=== PATIENT | female | born 1960 | race Caucasian/White ===

== ENCOUNTER 2022-06-20 10:23 | Inpatient (IN) | payer OTHER, SELFPAY ==
[2022-06-20] VITALS (23 sets, daily range): BP systolic 92–165; BP diastolic 47–77; PULSE 63–130; RESP 9–29; TEMP 36.7–40.1; O2SAT 92–96; BMI 32.3
--- NOTE | 2022-06-20 10:56 | ECG_ITS ---
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 Measurements Intervals [place] Rate: 125 P: 60 [place]: 149 QRS: 39 QRSD: 97 T: 55 QT: 322 QTc: 464 Interpretive Statements SINUS TACHYCARDIA ABNORMAL RHYTHM ECG No previous ECG available for comparison Electronically Signed On 06-20-2022 20:42:10 TRANSIT MECHANIC by Cale Panda M.D. [id number]
--- NOTE | 2022-06-20 10:56 | XRR_ITS ---
PROCEDURE INFORMATION: Exam: XR Chest Exam date and time: 06/20/2022 11:02 AM Age: 61 years old Clinical indication: Cough and dyspnea; Patient HX: AMS n/v; Additional info: Dyspnea/cough TECHNIQUE: Imaging protocol: Radiologic exam of the chest. Views: 1 view. COMPARISON: No relevant prior studies available. FINDINGS: Lungs: There small there is central weighted, indistinct peribronchial markings with peribronchial cuffing both lung shanks possibly secondary to ongoing airway the disease and mild pulmonary congestion. There are some small more consolidated a bone opacities left lower lobe obscured by the left heart border more nonspecific. Pleural spaces: Unremarkable. No pleural effusion. No pneumothorax. Heart/Mediastinum: Cardiac silhouette appears mildly enlarged on this portable chest area are Bones/joints: Mild-moderate multilevel degenerative changes in the throughout the thoracic spine. XR/XR chest 1V portable [id number] IMPRESSION: 1. Mild cardiomegaly a with mildly accentuated peribronchial opacities, nonspecific as discussed above. 2. Ill-defined consolidative densities the obscured by the left heart border which continued follow-up or CT chest recommended for clarification.
--- NOTE | 2022-06-20 11:10 | W.ED.AMS ---
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
[2022-06-20] MEDS: sodium chloride 0.9% 1,000 ML 999 ML IV (11:13)
[2022-06-20 11:26] LABS: ABG PCO2 23.2 mmHg (35-45); ABG PH Result 7.47 (7.35-7.45); Alveolar-Arterial Oxygen Gradi 6.7 mmHg (5-10); Arterial Blood Gas Hematocrit 43.3 % (37-47); Base Excess ABG -4.6 mmol/L (-2.0-2.0); Blood Gas Allen Test Pos; Blood Gas Operator Identificat CAK; Blood Gas Sample Site Radial, right; Blood Gas Sample Type Arterial; Carboxyhemoglobin 1.5 %THgb (0.4-20.1); HGB O2 Sat 93.7 % (95-100); Ionized Calcium Level - ABG 1.1 mmol/L (1.1-1.4); Methemoglobin 0.5 % (0.4-1.5); Oxygen Device ROOM AIR; Oxygen Saturation ABG 95.6; PO2 ABG 68.2 mmHg (80.0-100.0); Potassium Level - ABG 3.1 mmol/L (3.5-5.0); Total Hemoglobin 14.1 g/dL (12-16)
[2022-06-20 11:32] LABS: Hemoglobin 13.8 g/dL (11.5-15.3); Mean Corpuscular HGB Conc 34.5 g/dL (30.0-36.0); Mean Corpuscular Hemoglobin 33.6 pg (28.0-34.0); Mean Corpuscular Volume 97.3 fl (81-99); Mean Platelet Volume 11.8 fL (7.4-10.4); Platelet Count 34 10^3/cmm (130-400); Red Blood Count 4.11 10^6/uL (4.1-5.3); White Blood Count 15.7 10^3/uL (4.0-10.0)
[2022-06-20 11:42] LABS: Alanine Aminotransferase 29 U/L (0-33); Alkaline Phosphatase 69 U/L (35-105); Anion Gap 22.2 (5-19); Aspartate Amino Transferase 71 U/L (0-32); Blood Urea Nitrogen 23 mg/dL (8-23); Calcium 8.8 mg/dL (8.5-10.5); Carbon Dioxide 17 mmol/L (22-29); Chloride 92 mmol/L (98-107); Globulin 3.8 g/dL (1.3-4.6); Glomerular Filtration Rate 50.5 mL/min (90-130); Glucose 348 mg/dL (65-115); Lactic Sepsis W/Reflex 8.7 mmol/L (0.5-2.2); Osmolality Calculated 284 mOsm/kg (285-295); Potassium 3.2 mmol/L (3.5-5.1); Sodium 128 mmol/L (136-145); Total Bilirubin 2.2 mg/dL (0.15-1.2); Total Protein 6.8 g/dL (6.6-8.7)
[2022-06-20 11:59] LABS: Influenza A by IFA negative (Negative); Influenza B by IFA negative (Negative)
[2022-06-20 12:05] LABS: Band Neutrophils Absolute 3.1 10^3/cmm (0.0-1.2); Eosinophils 0 %; Lymphocytes 5 %; Lymphocytes Absolute 0.8 10^3/cmm (1.2-3.4); Monocytes Absolute 0.8 10^3/cmm (0.1-0.6); Segmented Neutrophils 70 %; Total Cells Counted 100 (0-100)
[2022-06-20 12:06] LABS: Absolute Neutrophil 14.1 10^3/cmm (1.4-6.5); Platelet Estimate Decreased (Normal)
--- NOTE | 2022-06-20 12:24 | CT_ITS ---
WS: [id number] CT HEAD TECHNIQUE: Noncontrast CT of the head obtained from the skullbase to the vertex. CLINICAL INFORMATION: AMS, fall COMPARISON: None. DLP: 1108.[address] scans at [facility] use at least one of these dose optimization techniques: automated e xposure control; mA and/or kV adjustment per patient size (includes targeted exams where dose is matc hed to clinical indication); or iterative reconstruction. FINDINGS: No evidence of intracranial hemorrhage or mass effect. Ventricular system and basal cisterns are sotelo nt. Mild small vessel changes with mild parenchymal volume loss. No extra-axial fluid collections. No evidence of mass or mass effect. Normal noble-white differentiation. Paranasal sinuses and mastoid air cells are well aerated. .Normal visualized soft tissues. CT/CT head wo con* [id number] IMPRESSION: 1. No evidence of intracranial hemorrhage or mass effect. 2. No acute intracranial findings.
--- NOTE | 2022-06-20 12:24 | CT_ITS ---
WS: [id number] CT ABDOMEN PELVIS TECHNIQUE: Noncontrast CT of the abdomen and pelvis with coronal and sagittal reformatted images. CLINICAL INFORMATION: Abdominal pain COMPARISON: None. DLP: 1006.[address] scans at [facility] use at least one of these dose optimization techniques: automated e xposure control; mA and/or kV adjustment per patient size (includes targeted exams where dose is matc hed to clinical indication); or iterative reconstruction. FINDINGS: Bibasilar atelectasis. Enlargement of the LEFT hepatic lobe. Splenomegaly. Spleen measures 12.5 CCM. Normal GE junction. Prominent gallstone within the gallbladder. No gallbladder wall thickening or per icholecystic fluid. Noncontrast pancreas is normal. Varices in the upper abdomen and retrocrural spac e. Portosystemic collaterals suspicious for portal venous hypertension. Small LEFT adrenal nodule lik hao adenoma. Adrenal gland is normal. No hydronephrosis in either kidney. No hydronephrosis in either kidney. No o bstructing renal or ureteral calculi. Urine distended bladder. Noncontrast pancreas appears normal. N ormal caliber abdominal aorta. Recanalization of the umbilical vein. Normal sigmoid colon. No evidence of high-grade small or large bowel obstruction. Nonspecific Low-at tenuation ovoid collection in the RIGHT lower quadrant measuring 4.3 x 2.5 cm abutting the descending colon. This may represent mucocele of the appendix versus incidental chronic seroma or lymphangioma. No prior comparisons CT/CT abdomen pelvis wo con [id number] IMPRESSION: 1. Hepatomegaly with splenomegaly. Evidence of portal venous hypertension with varices and portal collaterals. 2. Prominent gallstone in the gallbladder. No gallbladder wall thickening or p ericholecystic fluid. 3. Bibasilar atelectasis. 4. Normal caliber abdominal aorta. 5. Small LEFT adrenal adenoma. 6. Low-attenuation ovoid collection in the RIGHT lower quadrant measuring 4.3 x 2.5 cm abutting the descending colon nonspecific but may represent mucocele o f the appendix versus incidental chronic seroma or lymphangioma. No prior kari risons.
[2022-06-20 13:15] LABS: Reflex Lactate Order REFLEX LACTIC ORDERD
[2022-06-20] MEDS: sodium chlor 0.9% + KCl 20 mEq 20 MEQ/1,000 ML BAG 150 MEQ IV (13:18)
[2022-06-20] MEDS: cefepime 2,000 MG in sodium chloride 0.9% (plus) 50 ML 100 MG IV (13:19)
[2022-06-20 13:28] LABS: Adenovirus Not Detected (NOT DETECT); Chlamydia Pneumoniae Not Detected (NOT DETECT); Coronavirus 229E,HKU1,NL63,OC4 Not Detected (NOT DETECT); Human Metapneumovirus Not Detected (NOT DETECT); Human Rhinovirus/Enterovirus Not Detected (NOT DETECT); Influenza A Not Detected (NOT DETECT); Influenza A H1 Not Detected (NOT DETECT); Influenza A H1-2009 Not Detected (NOT DETECT); Influenza A H3 Not Detected (NOT DETECT); Influenza B Not Detected (NOT DETECT); Mycoplasma Pneumoniae Not Detected (NOT DETECT); Parainfluenza Virus Type 1 Not Detected (NOT DETECT); Parainfluenza Virus Type 2 Not Detected (NOT DETECT); Parainfluenza Virus Type 3 Not Detected (NOT DETECT); Parainfluenza Virus Type 4 Not Detected (NOT DETECT); Respiratory Syncytial Virus A Not Detected (NOT DETECT); Respiratory Syncytial Virus B Not Detected (NOT DETECT); SARS-COV-2 Not Detected (NOT DETECT)
[2022-06-20 13:42] LABS: Add Urine Microscopic? YES; Bilirubin Urine Neg (Negative); Blood Urine 3+ (Negative); Glucose Urine UA 2+ (Normal); Ketones Urine 1+ (Negative); Leukocyte Esterase Urine Negative (Negative); Nitrate Urine Positive (Negative); Protein Urine 1+ (Negative); Urine Appearance Hazy (CLEAR); Urine Color Amber (Yellow); Urobilinogen Urine Neg (Negative); pH Urine 5 (5-7)
[2022-06-20 13:46] LABS: Amorphous Sediment Urine 2+ /hpf; Bacteria Urine 2+ /hpf; Squamous Epithelial Cell Urine 0-4 /hpf (0-5)
[2022-06-20 13:47] LABS: Transitional Epi Cells Urine 0-4 /hpf
[2022-06-20] MEDS: vancomycin 1,000 MG in sodium chloride 0.9% 250 ML 250 MG IV (13:58)
[2022-06-20] MEDS: sodium chloride 0.9% 2,721.54 ML 2721.54 ML IV (14:57)
[2022-06-20] MEDS: acetaminophen 1,000 MG/100 ML PIGGYBACK 400 MG IV (15:57)
[2022-06-20 16:07] LABS: Basophils # 0.1 10^3/uL (0.0-0.1); Basophils % 0.5 %; Lymphocytes # 0.2 10^3/uL (0.8-4.8); Lymphocytes % 1.3 %; Monocytes # 0.3 10^3/uL (0.2-0.9); Monocytes % 2.1 %; Neutrophils # 14.47 10^3/uL (1.8-7.7); Neutrophils % 94.4 %; Nucleated Red Blood Cells % 0 %
[2022-06-20] MEDS: sodium chloride 0.9% 1,000 ML 75 ML IV (16:24)
[2022-06-20] MEDS: enoxaparin 40 mg/0.4 mL Syringe SUBCUT (16:24)
[2022-06-20 16:36] LABS: Glucose Point of Care 282 mg/dL (70-110)
[2022-06-20] MEDS: insulin lispro 100 unit/1 mL SUBCUT ×2 (17:02→20:01)
[2022-06-20 17:22] LABS: Slide Review Slide Review Perform
--- NOTE | 2022-06-20 17:24 | PM.HP ---
Providers/Chief Complaint Admitting Physician: Polly Gómez MD Chief Complaint: AMS, N/V History of Present Illness Silvia Mcneal is a 61 year old female brought to the emergency room by her family today with chief complaints of being unwell over the last 2 days. Specifics are not really available, patient is extremely lethargic therefore only participates in her history intermittently. Patient has not been to a physician in over 5 years. States that she has no known comorbidities that she is aware of. Comes in today complaining of 2 days of generalized weakness lethargy fever and some cough. Cannot tell me if she has had any expectoration or not. No sick contacts apparently at home. Upon arrival here she is noted to be significantly dehydrated. Her lips are dry cracked and it appears that she has been vomiting given that her teeth are slightly eroded. She does endorse vomiting however denies any abdominal pain or diarrhea. Her left index finger is noted to have paronychia which she states is from constantly picking on it. She denies any human or animal bites over this finger. Denies any photophobia or headache. Per she did fall 2 days ago and hit her head. CT of the head performed today does not show any bleeding. She denies any dysuria. She has significantly deranged labs. Lactate is at 8. She has leukocytosis. She is febrile to 104 Fahrenheit. Platelets are 34,000, unknown chronicity. Blood sugar elevated more than 400 upon admission with an anion gap, improved to 280 upon reassessment. She has hyponatremia and hypokalemia. Review of Systems General: Reports: 10 or more systems reviewed and unremarkable except in HPI and below Const: Denies: fever(s), chills or body aches Eyes: Denies: change in vision, blurry vision or photophobia ENMT: Reports: hoarseness; Denies: throat pain, enlarged tonsils, odynophagia or nasal congestion Card: Denies: chest pain, palpitations, irregular heart rhythm, edema, swelling of feet/ankles, lightheadedness, pre-syncope, dyspnea on exertion or orthopnea Resp: Denies: dyspnea, productive cough, non-productive cough, wheezing, stridor, pain on inspiration, change in phlegm color, hemoptysis or chest congestion GI: Denies: abdominal pain, nausea, vomiting, hematemesis, coffee ground emesis, dysphagia, heartburn, diarrhea, constipation, GI cramping, change in stool character, hematochezia or melena : Denies: flank pain, difficulty voiding, dysuria, urinary frequency, urinary urgency, urinary hesitancy or hematuria Musc: Denies: neck pain, back pain, extremity pain, joint swelling, joint warmth or deformity Neuro: Denies: headache(s), numbness in extremities, weakness in extremities, sensory changes, difficulty walking, frequent falls, dizziness, vertigo, behavioral changes, Slurred speech present or seizure-like activity Psych: Denies: anxiety, depression, suicidal ideation or homicidal ideation Endo: Denies: polyuria, polydipsia, tired all the time, cold intolerance or hot flashes Fabrice/Lymph: Denies: easy bruising or easy bleeding Medications/Allergies Home Medications Medication Instructions Recorded Confirmed Last Taken Type No Known Home Medications 06/20/22 06/20/22 Unknown History Allergies Allergy/AdvReac Type Severity Reaction Status Date / Time amoxicillin Allergy ALGY-Difficulty Verified 06/20/22 10:59 Breathing Penicillins Allergy ALGY-Difficulty Verified 06/20/22 10:59 Breathing Vitals/I&O/Wt Last Vital Signs Temp 102.8 F H 06/20/22 17:06 Pulse 115 H 06/20/22 16:56 Resp 20 H 06/20/22 16:56 BP 153/67 06/20/22 16:00 Pulse Ox 93 06/20/22 16:56 O2 Del Method 06/20/22 16:56 06/20/22 06/20/22 06/20/22 06:59 14:59 22:59 Intake Total 1050 / 1050 3071.54 / 4121.54 Balance 1050 / 1050 3071.54 / 4121.54 Weight last 48 hrs Weight 90.718 kg Physical Exam Narrative: General: Oriented x2-3, able to correctly tell me her name age and date of and where she is, however tangential in conversation. Does not always answer questions appropriately. Needs frequent redirection. Significantly dehydrated. Dry chapped lips and dry skin. Poor skin turgor. Winces on examining. HEENT: PERRLA, pupils bilaterally equal and reactive, pallors not present Chest: Normal vesicular breath sounds, no added sounds, equal good air entry bilaterally CVS: S1-S2 regular, no murmurs, no tachycardia, no gallops, no rubs Abdomen: Soft, nontender, no organomegaly, bowel sounds present Neuro: No focal deficits, no facial deformity, AO x2-3, power 5/5 in all limbs Extremities: Cool extremities to touch. Significant paronychia over the distal digit of left hand Urinary Catheter Management: Felix: Cath Placed During This Visit: yes Urinary Catheter Date of Insertion: 06/20/22 Urinary Catheter Time of Insertion: 13:22 Data 06/20/22 10:40 06/20/22 10:40 Micro: Microbiology 06/20/22 11:35 Blood Culture - Preliminary Blood SPECIMEN COLLECTED 06/20/22 11:33 Blood Culture - Preliminary Blood SPECIMEN COLLECTED Other data: Radiology Impressions Chest X-Ray 06/20/22 10:56 IMPRESSION: 1. Mild cardiomegaly a with mildly accentuated peribronchial opacities, nonspecific as discussed above. 2. Ill-defined consolidative densities the obscured by the left heart border which continued follow-up or CT chest recommended for clarification. Abdomen/Pelvis CT 06/20/22 12:24 IMPRESSION: 1. Hepatomegaly with splenomegaly. Evidence of portal venous hypertension with varices and portal collaterals. 2. Prominent gallstone in the gallbladder. No gallbladder wall thickening or pericholecystic fluid. 3. Bibasilar atelectasis. 4. Normal caliber abdominal aorta. 5. Small LEFT adrenal adenoma. 6. Low-attenuation ovoid collection in the RIGHT lower quadrant measuring 4.3 x 2.5 cm abutting the descending colon nonspecific but may represent mucocele of the appendix versus incidental chronic seroma or lymphangioma. No prior comparisons. Head CT 06/20/22 12:24 IMPRESSION: 1. No evidence of intracranial hemorrhage or mass effect. 2. No acute intracranial findings. Laboratory Results WBC 15.7 10^3/uL (4.0-10.0) H 06/20/22 10:40 RBC 4.11 10^6/uL (4.1-5.3) 06/20/22 10:40 Hgb 13.8 g/dL (11.5-15.3) 06/20/22 10:40 Hct 40.0 % (37.0-47.0) 06/20/22 10:40 MCV 97.3 fl (81-99) 06/20/22 10:40 MCH 33.6 pg (28.0-34.0) 06/20/22 10:40 MCHC 34.5 g/dL (30.0-36.0) 06/20/22 10:40 RDW 13.0 % (12.1-15.1) 06/20/22 10:40 Plt Count 34 10^3/cmm (130-400) L 06/20/22 10:40 MPV 11.8 fL (7.4-10.4) H 06/20/22 10:40 Neut % (Auto) 94.4 % 06/20/22 10:40 Lymph % (Auto) 1.3 % 06/20/22 10:40 [place] % (Auto) 2.1 % 06/20/22 10:40 Eos % (Auto) 0.0 % 06/20/22 10:40 Baso % (Auto) 0.5 % 06/20/22 10:40 Neut # (Auto) 14.47 10^3/uL (1.8-7.7) H 06/20/22 10:40 Lymph # (Auto) 0.2 10^3/uL (0.8-4.8) L 06/20/22 10:40 [place] # (Auto) 0.3 10^3/uL (0.2-0.9) 06/20/22 10:40 Eos # (Auto) 0.0 10^3/uL (0.0-0.8) 06/20/22 10:40 Baso # (Auto) 0.1 10^3/uL (0.0-0.1) 06/20/22 10:40 Nucleated RBC % (auto) 0 % 06/20/22 10:40 Total Counted 100 (0-100) 06/20/22 10:40 Atypical Lymphs % 0.0 % (0-5) 06/20/22 10:40 Absolute Neutrophils 14.1 10^3/cmm (1.4-6.5) H 06/20/22 10:40 Segmented Neutrophils 70 % 06/20/22 10:40 Abs Segm Neuts (Man) 11.0 10/cmm (1.6-7.1) H 06/20/22 10:40 Band Neutrophils 20.0 % 06/20/22 10:40 Abs Band Neuts (Man) 3.1 10^3/cmm (0.0-1.2) H 06/20/22 10:40 Absolute Lymphocytes 0.8 10^3/cmm (1.2-3.4) L 06/20/22 10:40 Lymphocytes (Manual) 5 % 06/20/22 10:40 Monocytes (Manual) 5.0 % 06/20/22 10:40 Absolute Monocytes 0.8 10^3/cmm (0.1-0.6) H 06/20/22 10:40 Eosinophils (Manual) 0 % 06/20/22 10:40 Absolute Eosinophils 0.0 10^3/cmm (0.0-0.7) 06/20/22 10:40 Basophils (Manual) 0.0 % 06/20/22 10:40 Absolute Basophils 0.0 10^3/cmm (0.0-0.2) 06/20/22 10:40 Nucleated RBCs # 0.0 /100WBC 06/20/22 10:40 Platelet Estimate Decreased (Normal) L 06/20/22 10:40 Specimen Type Arterial 06/20/22 11:15 Sample Site Radial, right 06/20/22 11:15 ABG pH 7.47 (7.35-7.45) H 06/20/22 11:15 ABG pCO2 23.2 mmHg (35-45) L 06/20/22 11:15 ABG pO2 68.2 mmHg (80.0-100.0) L 06/20/22 11:15 ABG HCO3 17.0 mmol/L (22-26) L 06/20/22 11:15 ABG O2 Saturation 95.6 06/20/22 11:15 ABG Base Excess -4.6 mmol/L (-2.0-2.0) L 06/20/22 11:15 Joshua Test Pos 06/20/22 11:15 A-a O2 Gradient 6.7 mmHg (5-10) 06/20/22 11:15 Hematocrit 43.3 % (37-47) 06/20/22 11:15 Hgb O2 Saturation 93.7 % (95-100) L 06/20/22 11:15 Carboxyhemoglobin 1.5 %THgb (0.4-20.1) 06/20/22 11:15 Methemoglobin 0.5 % (0.4-1.5) 06/20/22 11:15 Total Hemoglobin 14.1 g/dL (12-16) 06/20/22 11:15 Sodium 129.0 mmol/L (131-143) L 06/20/22 11:15 Potassium 3.1 mmol/L (3.5-5.0) L 06/20/22 11:15 Glucose 318.0 mg/dL (70-115) H 06/20/22 11:15 Ionized Calcium 1.1 mmol/L (1.1-1.4) 06/20/22 11:15 O2 Delivery Device Room air 06/20/22 11:15 FiO2 21.0 % 06/20/22 11:15 Manager Cardiac Cath ID Cak 06/20/22 11:15 Sodium 128 mmol/L (136-145) L 06/20/22 10:40 Potassium 3.2 mmol/L (3.5-5.1) L 06/20/22 10:40 Chloride 92 mmol/L (98-107) L 06/20/22 10:40 Carbon Dioxide 17 mmol/L (22-29) L 06/20/22 10:40 Anion Gap 22.2 (5-19) H 06/20/22 10:40 BUN 23 mg/dL (8-23) 06/20/22 10:40 Creatinine 1.1 mg/dL (0.5-0.9) H 06/20/22 10:40 GFR Calculation 50.5 mL/min (90-130) L 06/20/22 10:40 Glucose 348 mg/dL (65-115) H 06/20/22 10:40 POC Glucose 282 mg/dL (70-110) H 06/20/22 16:30 Calculated Osmolality 284 mOsm/kg (285-295) L 06/20/22 10:40 Lactic Acid 8.7 mmol/L (0.5-2.2) H* 06/20/22 10:40 Lactic Acid (Sepsis) 7.0 mmol/L (0.5-2.2) H* 06/20/22 14:37 Calcium 8.8 mg/dL (8.5-10.5) 06/20/22 10:40 Total Bilirubin 2.2 mg/dL (0.15-1.2) H 06/20/22 10:40 AST 71 U/L (0-32) H 06/20/22 10:40 ALT 29 U/L (0-33) 06/20/22 10:40 Alkaline Phosphatase 69 U/L (35-105) 06/20/22 10:40 Total Protein 6.8 g/dL (6.6-8.7) 06/20/22 10:40 Albumin 3.0 g/dL (3.5-5.2) L 06/20/22 10:40 Globulin 3.8 g/dL (1.3-4.6) 06/20/22 10:40 Urine Color Chyna (Yellow) 06/20/22 13:14 Urine Appearance Hazy (CLEAR) A 06/20/22 13:14 Urine pH 5 (5-7) 06/20/22 13:14 Ur Specific [place] 1.020 (1.005-1.030) 06/20/22 13:14 Urine Protein 1+ (Negative) H 06/20/22 13:14 Urine Glucose (UA) 2+ (Normal) H 06/20/22 13:14 Urine Ketones 1+ (Negative) H 06/20/22 13:14 Urine Blood 3+ (Negative) H 06/20/22 13:14 Urine Nitrate Positive (Negative) H 06/20/22 13:14 Urine Bilirubin Neg (Negative) 06/20/22 13:14 Urine Urobilinogen Neg mg/dL (Negative) 06/20/22 13:14 Ur Leukocyte Esterase Negative (Negative) 06/20/22 13:14 Urine RBC 10-15 /hpf (0-2) H 06/20/22 13:14 Urine WBC 10-15 /hpf (0-5) H 06/20/22 13:14 Ur Squamous Epith Cells 0-4 /hpf (0-5) H 06/20/22 13:14 Ur Transition Epith Cell 0-4 /hpf 06/20/22 13:14 Amorphous Sediment 2+ /hpf 06/20/22 13:14 Urine Bacteria 2+ /hpf (NONE) H 06/20/22 13:14 Coronavirus 229E (PCR) Not detected (NOT DETECT) 06/20/22 11:10 Influenza Type A Ag negative (Negative) 06/20/22 11:10 Influenza Type B Ag negative (Negative) 06/20/22 11:10 SARS-CoV-2 (PCR) Not detected (NOT DETECT) 06/20/22 11:10 A&P Assessment and plan (1) Sepsis: Sepsis, as evidenced by leukocytosis, fever, tachycardia, tachypnea, cool clammy extremities, significant lactic acidosis. She has received sepsis bolus in the ER. Continue normal saline at 125 cc an hour Blood cultures drawn prior to starting antibiotics. Empiric antibiotic coverage has been started with cefepime and vancomycin. We will add Levaquin for atypical coverage. Source of sepsis is currently under evaluation. Chest x-ray shows mild cardiomegaly with some peribronchial opacities very nonspecific but could be bronchopneumonia. Plan to obtain CT chest once a little more stable. CT of the abdomen and pelvis shows hepatosplenomegaly with evidence of portal hypertension and paresis with portal collaterals. Unclear as to why patient would have signs of portal hypertension at this time. Will check hepatitis serology and blood alcohol levels. Prominent gallstones are noted without any gallbladder wall thickening or pericholecystic fluid. Castañeda sign negative on exam. Slight induration around the upper pole of the left kidney noted. UA with positive nitrate, negative leuk esterase, 10-15 WBC and 2+ bacteria. Patient does not endorse any urinary symptoms, however she is currently unreliable given her encephalopathy. She could have a UTI potentially. Blood cultures taken and pending. Left hand paronychia noted, however would not expect her to be septic from a localized infection unless she is also concurrently bacteremic. No history of orthopedic or cardiac hardware. Negative COVID PCR, negative flu antigens. (2) Thrombocytopenia: We will check DIC panel Unknown chronicity at this point. Check peripheral smear. check u tox (3) Metabolic encephalopathy: likely 2/2 sepsis, very lethargic, tangential conversation (4) Lactic acidosis: (5) Ketoacidosis: ? diabetic vs starvation ketoacidosi, Ph 7.47, BS down to 280, insulin s/c sliding scale for now, recheck CMP in 6 hrs check hb a1c Plan DVT prophylaxis: Lovenox 40 mg subcutaneously daily Attestations Medical Necessity Statement*: Greater than 2 midnight admission will be needed for above defined care Critical Care Time: The high probability of a clinically significant, sudden or life threatening deterioration of the patient's [ID, renal, neuro, respiratory] system(s) required my full and direct attention, intervention and personal management. The critical care time is as shown. This time is in addition to time spent performing any reported procedures but includes the following: [x] Data and vital sign review and interpretation [x] Patient assessment, examination and intervention [x] Documentation [x] Medication orders and management Critical Care Time (min): 60 Coding Level of Care Code Acute Code for [facility] Fwd Diagnoses Sepsis A41.9 Thrombocytopenia D69.6 Metabolic encephalopathy G93.41 Lactic acidosis E87.20 Ketoacidosis E87.29
[2022-06-20 18:16] LABS: Lactic Sepsis W/Reflex 5.6 mmol/L (0.5-2.2)
[2022-06-20 18:31] LABS: Fibrinogen 264 mg/dL (174-498); Partial Thromboplastin Time 59.5 SECONDS (23.9-36.7)
[2022-06-20 18:47] LABS: D Dimer >= 20.00 ug/mIFEU (0-0.59)
[2022-06-20 18:47] LABS: Amphetamines Screen Urine Negative (Negative); Barbiturates Screen Urine Negative (Negative); Benzodiazepines Screen Urine Negative (Negative); Cocaine Screen Urine Negative (Negative); Opiate Screen Urine Negative (Negative); PCP Screen Urine Negative (Negative); THC Screen Urine Negative (Negative)
[2022-06-20 18:59] LABS: LAB Peripheral Smear Sent for Review
[2022-06-20] MEDS: levofloxacin-dextrose 5 % 750 MG/150 ML PREMIX 100 MG IV (19:00)
[2022-06-20 19:25] LABS: Reflex Lactate Order REFLEX LACTIC ORDERD
[2022-06-20 19:34] LABS: Glucose Point of Care 236 mg/dL (70-110)
[2022-06-20 19:38] LABS: Alcohol Level < 10 mg/dL (0-10); Creatine Phosphokinase 1742 U/L (26-192)
[2022-06-20 20:17] LABS: Hepatitis A Antibody IgM Non-Reactive (Nonreactive); Hepatitis B Core AB, Total Non-Reactive (Nonreactive); Hepatitis B Surface AB 3.5 (11.5-1000); Hepatitis B Surface Antigen Non-Reactive (Nonreactive); Hepatitis C Virus Antibody Non-Reactive (Nonreactive)
[2022-06-20 20:25] LABS: Estmated Average Glucose 232; Hemoglobin A1C 9.7 % (4.0-6.0)
[2022-06-20] MEDS: ipratropium-albuterol 3 mL Neb INHALATION (20:38)
[2022-06-20 23:19] LABS: Alanine Aminotransferase 36 U/L (0-33); Albumin Level 2.7 g/dL (3.5-5.2); Alkaline Phosphatase 47 U/L (35-105); Anion Gap 16.4 (5-19); Aspartate Amino Transferase 103 U/L (0-32); Blood Urea Nitrogen 23 mg/dL (8-23); Calcium 7.4 mg/dL (8.5-10.5); Carbon Dioxide 18 mmol/L (22-29); Chloride 101 mmol/L (98-107); Globulin 3.3 g/dL (1.3-4.6); Glomerular Filtration Rate 85.1 mL/min (90-130); Glucose 233 mg/dL (65-115); Osmolality Calculated 285 mOsm/kg (285-295); Potassium 3.4 mmol/L (3.5-5.1); Sodium 132 mmol/L (136-145); Total Bilirubin 1.7 mg/dL (0.15-1.2)
[2022-06-21] VITALS (56 sets, daily range): BP systolic 100–173; BP diastolic 51–96; PULSE 98–116; RESP 12–34; TEMP 36.6–37.2; O2SAT 89–98
[2022-06-21] MEDS: cefepime 2,000 MG in sodium chloride 0.9% (plus) 50 ML 100 MG IV ×2 (00:24→12:10)
[2022-06-21] MEDS: vancomycin 1,500 MG/300 ML PIGGYBACK 200 MG IV ×2 (01:11→20:52)
[2022-06-21] MEDS: ipratropium-albuterol 3 mL Neb INHALATION ×3 (03:15→13:43)
[2022-06-21 03:53] LABS: Basophils # 0.1 10^3/uL (0.0-0.1); Basophils % 0.7 %; Hematocrit 36.3 % (37.0-47.0); Hemoglobin 12.7 g/dL (11.5-15.3); Lymphocytes # 0.5 10^3/uL (0.8-4.8); Lymphocytes % 4.4 %; Mean Corpuscular Hemoglobin 33.7 pg (28.0-34.0); Mean Corpuscular Volume 96.3 fl (81-99); Mean Platelet Volume 11.9 fL (7.4-10.4); Monocytes # 0.5 10^3/uL (0.2-0.9); Monocytes % 5.2 %; Neutrophils # 8.82 10^3/uL (1.8-7.7); Neutrophils % 86.8 %; Nucleated Red Blood Cells % 0 %; Red Blood Count 3.77 10^6/uL (4.1-5.3); Red Cell Distribution Width 13.3 % (12.1-15.1); White Blood Count 10.2 10^3/uL (4.0-10.0)
[2022-06-21] MEDS: sodium chloride 0.9% 1,000 ML 125 ML IV ×4 (04:08→22:31)
[2022-06-21 04:44] LABS: Alanine Aminotransferase 39 U/L (0-33); Albumin Level 2.6 g/dL (3.5-5.2); Alkaline Phosphatase 43 U/L (35-105); Anion Gap 15.3 (5-19); Aspartate Amino Transferase 112 U/L (0-32); Blood Urea Nitrogen 21 mg/dL (8-23); Calcium 7.3 mg/dL (8.5-10.5); Carbon Dioxide 18 mmol/L (22-29); Chloride 104 mmol/L (98-107); Globulin 3.4 g/dL (1.3-4.6); Glomerular Filtration Rate 101.6 mL/min (90-130); Glucose 196 mg/dL (65-115); Lactate (Lactic Acid level) 3.3 mmol/L (0.5-2.2); Osmolality Calculated 286 mOsm/kg (285-295); Potassium 3.3 mmol/L (3.5-5.1); Sodium 134 mmol/L (136-145); Total Bilirubin 1.6 mg/dL (0.15-1.2)
[2022-06-21 05:03] LABS: Platelet Count 25 10^3/cmm (130-400)
[2022-06-21 07:27] LABS: Glucose Point of Care 162 mg/dL (70-110)
[2022-06-21] MEDS: insulin lispro 100 unit/1 mL SUBCUT ×4 (08:30→20:56)
[2022-06-21] MEDS: pantoprazole DR 40 mg Tablet PO (08:31)
--- NOTE | 2022-06-21 10:28 | PC.NURSE ---
somewhat confused at this time iv site right ac redressed at this time .. middle finger with red area tip swollen and red steak running up arm. Arm very swollen and tender to touch.
--- NOTE | 2022-06-21 11:16 | CT_ITS ---
WS: [id number] CT CHEST TECHNIQUE: Noncontrast CT of the chest with coronal and sagittal reformatted images. CLINICAL INFORMATION: septic COMPARISON: None. DLP: 550.[address] scans at [facility] use at least one of these dose optimization techniques: automated e xposure control; mA and/or kV adjustment per patient size (includes targeted exams where dose is matc hed to clinical indication); or iterative reconstruction. FINDINGS: Cardiomegaly. Tiny pericardial effusion. Normal caliber thoracic aorta. Normal caliber descending tho racic aorta. Large gallstone partially visualized in the gallbladder as described on the CT abdomen p [place]. Small LEFT adrenal adenoma. Hepatomegaly with splenomegaly and evidence of portal venous hyper tension with varices visualized in the upper abdomen. Portosystemic collaterals partially visualized. No mediastinal or hilar lymphadenopathy. Tiny bilateral pleural effusions with patchy infiltrates in the lung bases and lingula. Interstitial edema in the lung bases. Recommend correlation for pneumonia . Upper lobes are well aerated. Mild thoracic curve and kyphosis. CT/CT chest wo con [id number] IMPRESSION: 1. Tiny bilateral pleural effusions with patchy infiltrates in the LEFT greate r than RIGHT lower lobes and lingula with interstitial edema. Recommend correla tion for pneumonia. No focal consolidation. 2. Cardiomegaly. Tiny pericardial effusion. 3. Partially visualized large gallstone in the upper abdomen. 4. Hepatomegaly and splenomegaly. Evidence of portal venous hypertension.
--- NOTE | 2022-06-21 11:17 | CT_ITS ---
WS: [id number] NONCONTRAST CT LEFT HAND TECHNIQUE: Noncontrast CT LEFT with coronal and sagittal reformatted images. CLINICAL INFORMATION: septic COMPARISON: None. DLP: 575.[address] scans at [facility] use at least one of these dose optimization techniques: automated e xposure control; mA and/or kV adjustment per patient size (includes targeted exams where dose is matc hed to clinical indication); or iterative reconstruction. FINDINGS: Diffuse soft tissue edema LEFT hand worse involving the dorsal soft tissues. Edema more prominent ove rlying the 2nd and 3rd metatarsals. No evidence of drainable abscess or fluid collection. Edema along the dorsal extensor retinaculum. No evidence of osteomyelitis. Degenerative narrowing involving the MCP joints and IP joints. No other acute findings. CT/CT hand LT wo con* [id number] IMPRESSION: 1. Soft tissue edema dorsal hand worse overlying the 2nd and 3rd metatarsal. N o evidence of drainable abscess or fluid collection. 2. No evidence of osteomyelitis. 3. No other acute findings.
[2022-06-21 12:04] LABS: Glucose Point of Care 175 mg/dL (70-110)
--- NOTE | 2022-06-21 15:20 | USR_ITS ---
PROCEDURE INFORMATION: Exam: US Duplex Left Upper Extremity Veins, Limited Exam date and time: 06/21/2022 4:06 PM Age: 61 years old Clinical indication: Pain; Arm, upper and arm, lower; Left; Additional info: Evaluate for dvt TECHNIQUE: Imaging protocol: Real-time duplex ultrasound of the Left Upper Extremity with 2-D noble scale, color Doppler flow and spectral waveform analysis with image documentation. Limited exam focused on the left upper extremity veins. COMPARISON: CT hand LT wo con* [id number] 06/21/2022 11:39 AM FINDINGS: Left deep veins: Unremarkable. Axillary and brachial veins are patent throughout without thrombus. Normal Doppler waveforms. Normal compressibility and/or augmentation response. Visualized internal jugular and subclavian veins are patent. Left superficial veins: Unremarkable. Visualized cephalic and basilic veins are patent without thrombus. Soft tissues: Unremarkable. US/[place] [id number] IMPRESSION: No evidence of deep vein thrombosis.
--- NOTE | 2022-06-21 15:40 | PM.PN ---
Subjective Subjective: Patient blood culture returned positive for gram-positive cocci in chains, anticipate Streptococcus versus Enterococcus with that identification. Patient is also in DIC. She looks improving today, more alert, appropriate in conversation, texting on her phone with right hand. Left hand continues to be painful with streaking up the forearm. Medications: Reviewed: Yes Vitals/I&O/Wt Last Vital Signs Temp 98 F 06/21/22 14:00 Pulse 116 H 06/21/22 14:00 Resp 12 06/21/22 14:00 BP 119/64 06/21/22 14:00 Pulse Ox 96 06/21/22 14:00 O2 Del Method 06/21/22 13:44 06/21/22 06/21/22 06/21/22 06:59 14:59 22:59 Intake Total 1296.25 / 6236.54 1150 / 1150 50 / 1200 Output Total 500 / 1000 Balance 796.25 / 5236.54 1150 / 1150 50 / 1200 Weight last 48 hrs Weight 90.718 kg Weight 90.718 kg Physical Exam Narrative: General: No acute distress, AO x3 HEENT: PERRLA, pupils bilaterally equal and reactive, pallors not present Chest: Normal vesicular breath sounds, no added sounds, equal good air entry bilaterally CVS: S1-S2 regular, no murmurs, no tachycardia, no gallops, no rubs Abdomen: Soft, nontender, no organomegaly, bowel sounds present Neuro: No focal deficits, no facial deformity, AO x3, power 5/5 in all limbs Extremities: no edema, clubbing or cyanosis Urinary Catheter Management: Felix: Cath Placed During This Visit: yes Reason for Continuing Indwelling Catheter: Accurate Measurement of Urinary Output in Critically Ill Patients Urinary Catheter Date of Insertion: 06/20/22 Urinary Catheter Time of Insertion: 13:22 Data 06/21/22 03:38 06/21/22 03:38 Micro: Microbiology 06/20/22 11:33 Blood Culture - Preliminary Blood 06/20/22 11:35 Blood Culture - Preliminary Blood A&P Assessment and plan (1) Sepsis: Sepsis, as evidenced by leukocytosis, fever, tachycardia, tachypnea, cool clammy extremities, significant lactic acidosis. She has received sepsis bolus in the ER. Continue normal saline at 125 cc an hour Blood cultures drawn prior to starting antibiotics. Now positive for GPC in chains, pending further identification Empiric antibiotic coverage has been started with cefepime and vancomycin. d/c levaquin Source of sepsis is currently under evaluation. Likely left hand infection with paronychia and ascneding infection. CT hand and CT chest today UE DVT to evalute for septic thrombophlebitis Chest x-ray shows mild cardiomegaly with some peribronchial opacities very nonspecific but could be bronchopneumonia. Plan to obtain CT chest today. CT of the abdomen and pelvis shows hepatosplenomegaly with evidence of portal hypertension and paresis with portal collaterals. Unclear as to why patient would have signs of portal hypertension at this time. No h/o alcohol abuse. hepatitis serology negative for hep b or hep c. Prominent gallstones are noted without any gallbladder wall thickening or pericholecystic fluid. Castañeda sign negative on exam. Slight induration around the upper pole of the left kidney noted. UA with positive nitrate, negative leuk esterase, 10-15 WBC and 2+ bacteria. Patient does not endorse any urinary symptoms. No history of orthopedic or cardiac hardware. Negative COVID PCR, negative flu antigens. (2) Thrombocytopenia: related to DIC from sepsis closely monitor for now no signs of obvious bleeding or clotting but at high risk for both (3) Metabolic encephalopathy: likely 2/2 sepsis, improving today (4) Lactic acidosis: (5) Ketoacidosis: likely 2/2 sepsis, also newly diagnosed DM, Hb a1c 9.7 BS better controlled with insulin (6) DIC (disseminated intravascular coagulation): Plan DVT prophylaxis: SCDs only, not on any heparin products Full code , family updated at beside Attestations Medical Necessity Statement*: severe sepsis needs ICU management with abx, monitor for compartment syndrome of hand, DIC , close monitoring of plt Coding Level of Care Code Acute Code for [facility]g Fwd Diagnoses Sepsis A41.9 Thrombocytopenia D69.6 Metabolic encephalopathy G93.41 Lactic acidosis E87.20 Ketoacidosis E87.29 DIC (disseminated intravascular coagulation) D65
[2022-06-21 17:27] LABS: Glucose Point of Care 188 mg/dL (70-110)
[2022-06-21] MEDS: levofloxacin-dextrose 5 % 750 MG/150 ML PREMIX 100 MG IV (17:41)
--- NOTE | 2022-06-21 20:00 | PC.NURSE ---
Due to pain in the L. hand/arm, pt refused enrollment eligibility representative and palpation of pulses in L. Radial during assessment.
[2022-06-21 20:43] LABS: Glucose Point of Care 173 mg/dL (70-110)
[2022-06-21] MEDS: lanolin oint 7 gm 1 APPLIC TOPICAL (22:30)
--- NOTE | 2022-06-21 23:48 | PC.NURSE ---
Pt appears to be in severe pain, evidence by increased BP, shallow RR, increased anxiety, tears in the eyes, and calling out when the blanket touches her L. hand/arm. Yet, pt reports 3/10 pain. This RN educated pt on pain management and options, including non-pharmacological. Pt expressed concerns about taking pain medication. Dr. Morgan updated. Low dose, low frequency pain meds ordered. At this time pt is agreeable to take low dose, low frequency pain meds.
[2022-06-22] VITALS (52 sets, daily range): BP systolic 117–180; BP diastolic 64–109; PULSE 93–123; RESP 16–34; TEMP 36.8–37.2; O2SAT 83–98
--- NOTE | 2022-06-22 00:19 | PC.NURSE ---
Addendum entered by Flakita Cai RN 06/22/22 00:32: Witnessed waste of Ultram. Original Note: Tylenol and Ultram were scanned and brought to pt. Pt refused medications. Medications were wasted in sharps bin w/ Nichole Cai RN. This RN provided education on pain management and options. BP 180/105. This RN explained that pain control could help BP control and we could possibly avoid BP meds. Dr. Morgan updated on increased BP. Pt is refusing BP meds. Educated pt on the risk of a CVA, heart attack, and if BP is untreated. Pt verbalized understanding and verbalized refusal of blood pressure medication.
[2022-06-22] MEDS: cefepime 2,000 MG in sodium chloride 0.9% (plus) 50 ML 100 MG IV ×2 (01:01→12:27)
[2022-06-22] MEDS: acetaminophen 325 mg Tablet 650 MG PO (01:01)
[2022-06-22] MEDS: ipratropium-albuterol 3 mL Neb INHALATION ×4 (02:03→20:16)
[2022-06-22 04:22] LABS: Basophils # 0.1 10^3/uL (0.0-0.1); Basophils % 0.5 %; Eosinophils % 0.1 %; Hematocrit 35.5 % (37.0-47.0); Hemoglobin 12.3 g/dL (11.5-15.3); Lymphocytes # 0.6 10^3/uL (0.8-4.8); Lymphocytes % 6.4 %; Mean Corpuscular HGB Conc 34.6 g/dL (30.0-36.0); Mean Corpuscular Hemoglobin 33.5 pg (28.0-34.0); Mean Corpuscular Volume 96.7 fl (81-99); Mean Platelet Volume 12.7 fL (7.4-10.4); Monocytes # 0.8 10^3/uL (0.2-0.9); Neutrophils # 8.44 10^3/uL (1.8-7.7); Neutrophils % 84.4 %; Nucleated Red Blood Cells % 0 %; Red Blood Count 3.67 10^6/uL (4.1-5.3); Red Cell Distribution Width 13.2 % (12.1-15.1)
[2022-06-22 04:44] LABS: Blood Urea Nitrogen 17 mg/dL (8-23); Carbon Dioxide 19 mmol/L (22-29); Chloride 106 mmol/L (98-107); Creatinine Clr Calc Pharmacy 134.0523; Glomerular Filtration Rate 125.4 mL/min (90-130); Glucose 197 mg/dL (65-115); Osmolality Calculated 289 mOsm/kg (285-295); Sodium 136 mmol/L (136-145)
[2022-06-22 04:46] LABS: Platelet Count 27 10^3/cmm (130-400); Slide Review Slide Review Perform
[2022-06-22 05:02] LABS: Anion Gap 14.1 (5-19)
[2022-06-22 05:03] LABS: Potassium 3.1 mmol/L (3.5-5.1)
[2022-06-22] MEDS: potassium chloride ER 20 mEq Tablet 40 MEQ PO ×2 (05:58→15:24)
[2022-06-22] MEDS: TRAMadol 50 mg Tablet PO ×2 (07:35→20:35)
--- NOTE | 2022-06-22 07:40 | USCV_ITS ---
Silvia Mcneal Age: 61 Gender: F : 1960 Exam Date: 06/22/2022 11:14 Ordering Phys: Polly Gómez MD Technologist: ALEX Exam Location: [facility] [place] Indication: endocarditis BP: 151 / 78 HR: 96 Rhythm: Sinus Technical Quality: Adequate MEASUREMENTS (Male / Female) Normal Values 2D ECHO LV Diastolic Diameter PLAX 5.1 cm 4.2 - 5.9 / 3.9 - 5.3 cm LV Systolic Diameter PLAX 4.0 cm IVS Diastolic Thickness 0.8 cm 0.6 - 1.0 / 0.6 - 0.9 cm IVS Systolic Thickness 0.9 cm LVPW Diastolic Thickness 0.9 cm 0.6 - 1.0 / 0.6 - 0.9 cm LVPW Systolic Thickness 1.1 cm LVOT Diameter 2.2 cm LV Ejection Fraction 2D Teich 42.5 % LV Ejection Fraction MOD 2C 35.5 % LV Ejection Fraction 2C AL 36.2 % LA Diameter 3.2 cm IVC Diameter 1.3 cm M-MODE Aortic Annulus Diameter 3.1 cm LA Ao Ratio MM 1.1 MV E Point Septal Separation 0.3 cm DOPPLER AV Peak Velocity 147.0 cm/s LVOT Peak Velocity 109.0 cm/s AV Area Cont Eq vti 3.3 cm squared AV Area Cont Eq pk 2.9 cm squared MV Area PHT 4.5 cm squared Mitral E to A Ratio 0.9 MV E' Velocity 61.0 cm/s Mitral E to MV E' Ratio 11.1 Mitral E to LV E' Lateral Ratio 10.5 Mitral E to LV E' Septal Ratio 11.9 TR Peak Velocity 238.7 cm/s TR Peak Gradient 22.8 mmHg TV Peak E Velocity 80.0 cm/s Right Atrial Pressure 6.0 mmHg Pulmonary Artery Systolic Pressu 28.8 mmHg PV Peak Velocity 72.0 cm/s FINDINGS Left Ventricle Normal left ventricular size, systolic function and wall thickness, with no regional wall motion abnormalities. Grade I/IV diastolic dysfunction (abnormal relaxation filling pattern), normal to mildly elevated filling pressures. Left ventricular ejection fraction is estimated at 60 %. Right Ventricle Normal right ventricular size and systolic function. Normal right ventricular systolic pressure. Right Atrium The right atrium is normal in size. Left Atrium The left atrium is normal in size. Mitral Valve Structurally normal mitral valve. Mild mitral valve regurgitation. Aortic Valve Structurally normal aortic valve without significant sclerosis or stenosis. There is no aortic regurgitation. Tricuspid Valve Structurally normal tricuspid valve without significant stenosis or regurgitation. Pulmonary artery systolic pressure is normal. Pulmonic Valve Pulmonic valve not well visualized. Pericardium Normal pericardium without effusion. Aorta Normal ascending aorta dimension. IVC The inferior vena cava appears normal. CONCLUSIONS Normal left ventricular size, systolic function and wall thickness, with no regional wall motion abnormalities. Grade I/IV diastolic dysfunction (abnormal relaxation filling pattern), normal to mildly elevated filling pressures. Left ventricular ejection fraction is estimated at 60 %. Structurally normal mitral valve. Mild mitral valve regurgitation. There are no obvious valvular vegetations. There are no prior echocardiogram studies to compare. Dr. Romeo Snushine MD (Electronically Signed) Final Date: 22 June 2022 12:51 S
[2022-06-22 07:42] LABS: Glucose Point of Care 188 mg/dL (70-110)
[2022-06-22] MEDS: insulin lispro 100 unit/1 mL SUBCUT ×4 (07:42→20:53)
[2022-06-22] MEDS: sodium chloride 0.9% 1,000 ML 125 ML IV ×3 (08:20→23:44)
[2022-06-22] MEDS: pantoprazole DR 40 mg Tablet PO (08:23)
--- NOTE | 2022-06-22 08:27 | PC.NURSE ---
pt anxious and restless painful left hand and arm red streak noted up arm upper and under aspect of arm elevated on pillow to decrease edema ..
--- NOTE | 2022-06-22 10:12 | PC.NURSE ---
resting at this time no distress noted hand elevated on pillow at this time.;
[2022-06-22 12:27] LABS: Glucose Point of Care 172 mg/dL (70-110)
[2022-06-22] MEDS: vancomycin 1,500 MG/300 ML PIGGYBACK 200 MG IV (13:41)
--- NOTE | 2022-06-22 14:33 | PC.NURSE ---
resting at this time left hand remains elevated on pillow redness and edema remains at this time
--- NOTE | 2022-06-22 14:50 | P.PN_ITS ---
Subjective Subjective: Patient reports her left hand is worse. She has two areas of red streaking progressing up her forearm. She reports her hand is painful but she is reluctant to take pain medications. Denies fevers or chills. Reports appetite is OK. Medications: Reviewed: Yes Vitals/I&O/Wt Last Vital Signs Temp 98.3 F 06/22/22 03:30 Pulse 102 H 06/22/22 14:00 Resp 17 06/22/22 14:00 BP 153/78 06/22/22 14:00 Pulse Ox 92 06/22/22 10:30 O2 Del Method 06/22/22 09:00 06/21/22 06/22/22 06/22/22 22:59 06:59 14:59 Intake Total 1895.833 / 3045.833 1050 / 4095.833 200 / 200 Output Total 500 / 500 500 / 1000 Balance 1395.833 / 2545.833 550 / 3095.833 200 / 200 Weight last 48 hrs Weight 90.401 kg Weight 90.718 kg Physical Exam Narrative: General: Patient is awake. Appears fatigued. Head: Normocephalic. Atraumatic. EOM intact. Neck: No JVD. Cardiovascular: RRR. No gallops. No murmurs. No peripheral edema. Lungs: Clear to auscultation, no use of accessory muscles, no crackles or wheezes. Skin: No jaundice. No rashes. Abdomen: Normal bowel sounds, abdomen soft and nontender. Genito Urinary: Genital exam not performed since complaints not related. Rectal: Rectal exam not performed since no symptoms indicated blood loss. Extremities: No cyanosis or clubbing. Musculoskeletal: Left hand is markedly swollen with erythema and tender to palpation with proximal migration of erythema anteriorly and posteriorly at the forearm. Neurological: Moves all 4 extremities. No myoclonus. Urinary Catheter Management: Felix: Cath Placed During This Visit: yes Reason for Continuing Indwelling Catheter: Accurate Measurement of Urinary Output in Critically Ill Patients Urinary Catheter Date of Insertion: 06/20/22 Urinary Catheter Time of Insertion: 13:22 Data 06/22/22 03:55 06/22/22 03:55 Micro: Microbiology 06/20/22 11:33 Blood Culture - Preliminary Blood Strep pyogenes (grp a) 06/22/22 08:32 Blood Culture - Preliminary Blood SPECIMEN COLLECTED 06/22/22 08:30 Blood Culture - Preliminary Blood SPECIMEN COLLECTED A&P Assessment and plan (1) Sepsis: With gram positive cocci bacteremia Follow up blood cultures Repeat blood cultures Source is left hand cellulitis Continue vancomycin Continue cefepime CT of hand reviewed, no drainable abscess Monitor closely for compartment syndrome, if develops, will need transferred US doppler negative for DVT (2) Thrombocytopenia: Suspected secondary to DIC from sepsis Monitor blood counts (3) Metabolic encephalopathy: Mentation has improved Continue to monitor (4) Lactic acidosis: Secondary to sepsis (5) Ketoacidosis: Continue insulin (6) DIC (disseminated intravascular coagulation): Treat underlying sepsis Plan DVT ppx: SCD Code Status: Full Code Attestations Medical Necessity Statement*: Patient requires ongoing hospitalization for blood cultures, IV antibiotics, and serial exams. Coding Level of Care Code Acute Code for [facility] Fwd Diagnoses Sepsis A41.9 Thrombocytopenia D69.6 Metabolic encephalopathy G93.41 Lactic acidosis E87.20 Ketoacidosis E87.29 DIC (disseminated intravascular coagulation) D65
[2022-06-22 16:58] LABS: Glucose Point of Care 179 mg/dL (70-110)
[2022-06-22] MEDS: levofloxacin-dextrose 5 % 750 MG/150 ML PREMIX 100 MG IV (17:03)
[2022-06-22] MEDS: clindamycin 900 MG/50 ML PREMIX 100 MG IV (18:38)
[2022-06-22 20:45] LABS: Glucose Point of Care 194 mg/dL (70-110)
[2022-06-23] VITALS (34 sets, daily range): BP systolic 124–184; BP diastolic 66–123; PULSE 84–112; RESP 14–36; TEMP 36.7–37.5; O2SAT 77–94; BMI 32.1
[2022-06-23] MEDS: cefepime 2,000 MG in sodium chloride 0.9% (plus) 50 ML 100 MG IV ×2 (00:24→14:00)
[2022-06-23] MEDS: clindamycin 900 MG/50 ML PREMIX 100 MG IV ×3 (02:37→17:24)
[2022-06-23] MEDS: ipratropium-albuterol 3 mL Neb INHALATION ×4 (02:40→19:47)
--- NOTE | 2022-06-23 06:14 | PC.NURSE ---
Patient has rested periodically throughout this nurses shift. Multiple loose stools have been observed. Patient has reported little pain but grimaces with movement and/or manipulation of left arm/hand. Red streaks observed proximal to the initial infection site of the left hand have been marked at the start of shift. Patient has been able to move the extremity increasingly throughout the shift. Temps have remained <100F. Patient has been encouraged to allow us to treat pain and benefits of NSAIDs for inflammation.
[2022-06-23 06:56] LABS: Basophils # 0.1 10^3/uL (0.0-0.1); Basophils % 0.5 %; Eosinophils # 0.1 10^3/uL (0.0-0.8); Eosinophils % 0.7 %; Hematocrit 35.8 % (37.0-47.0); Lymphocytes # 1.3 10^3/uL (0.8-4.8); Lymphocytes % 13.1 %; Mean Corpuscular HGB Conc 33.5 g/dL (30.0-36.0); Mean Corpuscular Hemoglobin 33.6 pg (28.0-34.0); Mean Corpuscular Volume 100.3 fl (81-99); Monocytes # 1.1 10^3/uL (0.2-0.9); Monocytes % 10.5 %; Neutrophils # 7.55 10^3/uL (1.8-7.7); Neutrophils % 74.7 %; Nucleated Red Blood Cells % 0 %; Platelet Count 31 10^3/cmm (130-400); Red Blood Count 3.57 10^6/uL (4.1-5.3); Red Cell Distribution Width 14.1 % (12.1-15.1); White Blood Count 10.1 10^3/uL (4.0-10.0)
[2022-06-23 07:13] LABS: Glucose Point of Care 157 mg/dL (70-110)
--- NOTE | 2022-06-23 07:14 | PC.NURSE ---
bedside report received from Logan NOVA
[2022-06-23 07:17] LABS: Alanine Aminotransferase 37 U/L (0-33); Albumin Level 2.4 g/dL (3.5-5.2); Alkaline Phosphatase 91 U/L (35-105); Anion Gap 12.1 (5-19); Aspartate Amino Transferase 58 U/L (0-32); Blood Urea Nitrogen 15 mg/dL (8-23); Calcium 7.5 mg/dL (8.5-10.5); Carbon Dioxide 16 mmol/L (22-29); Chloride 107 mmol/L (98-107); Globulin 3.6 g/dL (1.3-4.6); Glomerular Filtration Rate 162.3 mL/min (90-130); Glucose 165 mg/dL (65-115); Magnesium 1.6 mg/dL (1.7-2.3); Osmolality Calculated 279 mOsm/kg (285-295); Potassium 3.1 mmol/L (3.5-5.1); Sodium 132 mmol/L (136-145); Total Bilirubin 1.8 mg/dL (0.15-1.2)
[2022-06-23 07:20] LABS: Vancomycin Trough 8.7 ug/mL (10-15)
[2022-06-23] MEDS: insulin lispro 100 unit/1 mL SUBCUT ×3 (08:27→21:02)
[2022-06-23] MEDS: magnesium sulfate premix 2 GM/50 ML PIGGYBACK IV (08:28)
[2022-06-23] MEDS: potassium chloride ER 20 mEq Tablet 40 MEQ PO (08:29)
[2022-06-23] MEDS: sodium chloride 0.9% 1,000 ML 125 ML IV (09:36)
[2022-06-23] MEDS: vancomycin 1,500 MG/300 ML PIGGYBACK 200 MG IV ×2 (09:36→21:01)
[2022-06-23] MEDS: pantoprazole DR 40 mg Tablet PO (09:37)
[2022-06-23 11:32] LABS: Glucose Point of Care 138 mg/dL (70-110)
--- NOTE | 2022-06-23 12:29 | P.PN_ITS ---
Subjective Subjective: Patient reports the swelling, pain and redness in her left hand and forearm is a little bit better as compared to yesterday. This was reassuring as over the course of yesterday was getting worse. She denies fevers or chills. Reports poor appetite. She states that she did not get out of bed yesterday, encouraged her to get out of bed today. She is agreeable. Medications: Reviewed: Yes Vitals/I&O/Wt Last Vital Signs Temp 98.3 F 06/23/22 08:00 Pulse 107 H 06/23/22 10:00 Resp 25 H 06/23/22 10:00 BP 143/75 06/23/22 10:00 Pulse Ox 91 06/23/22 10:00 O2 Del Method 06/23/22 10:00 06/22/22 06/23/22 06/23/22 22:59 06:59 14:59 Intake Total 2440 / 2640 1337.5 / 3977.5 1400 / 1400 Output Total 550 / 550 450 / 1000 Balance 1890 / 2090 887.5 / 2977.5 1400 / 1400 Weight last 48 hrs Weight 90.401 kg Weight 90.401 kg Physical Exam Narrative: General: Patient is awake. Appears fatigued. Head: Normocephalic. Atraumatic. EOM intact. Neck: No JVD. Cardiovascular: RRR. No gallops. No murmurs. No peripheral edema. Lungs: Clear to auscultation, no use of accessory muscles, no crackles or wheezes. Skin: No jaundice. No rashes. Abdomen: Normal bowel sounds, abdomen soft and nontender. Genito Urinary: Genital exam not performed since complaints not related. Rectal: Rectal exam not performed since no symptoms indicated blood loss. Extremities: No cyanosis or clubbing. Musculoskeletal: Left hand is swollen with erythema and tender to palpation with proximal migration of erythema anteriorly and posteriorly at the forearm, slightly improved from yesterday's exam. Neurological: Moves all 4 extremities. No myoclonus. Urinary Catheter Management: Felix: Cath Placed During This Visit: yes Reason for Continuing Indwelling Catheter: Accurate Measurement of Urinary Output in Critically Ill Patients Urinary Catheter Date of Insertion: 06/20/22 Urinary Catheter Time of Insertion: 13:22 Data 06/23/22 06:35 06/23/22 06:35 Micro: Microbiology 06/22/22 08:32 Blood Culture - Preliminary Blood NEGATIVE TO DATE 06/22/22 08:30 Blood Culture - Preliminary Blood NEGATIVE TO DATE 06/20/22 11:33 Blood Culture - Preliminary Blood Strep pyogenes (grp a) A&P Assessment and plan (1) Sepsis: With group A strep pyogenes bacteremia and cellulitis Repeat blood cultures from 06/22 are pending Source is left hand cellulitis Cellulitis showing some improvement Continue vancomycin, consider discontinuing tomorrow Continue cefepime Continue clindamycin CT of hand reviewed, no drainable abscess Monitor closely for compartment syndrome, if develops, will need transferred US doppler negative for DVT Consider ID consult this week (2) Thrombocytopenia: Suspected secondary to DIC from sepsis Monitor blood counts PLT 31 (3) Lactic acidosis: Secondary to sepsis (4) Ketoacidosis: Type 2 diabetes mellitus SSI (5) DIC (disseminated intravascular coagulation): Treat underlying sepsis (6) Metabolic encephalopathy: Resolved Plan DVT ppx: SCD Code Status: Full Code Attestations Medical Necessity Statement*: Patient requires ongoing hospitalization for blood cultures, IV antibiotics, and serial exams. Coding Level of Care Code Acute Code for [facility] Fwd Diagnoses Sepsis A41.9 Thrombocytopenia D69.6 Lactic acidosis E87.20 Ketoacidosis E87.29 DIC (disseminated intravascular coagulation) D65 Metabolic encephalopathy G93.41
[2022-06-23 16:44] LABS: Glucose Point of Care 163 mg/dL (70-110)
[2022-06-23] MEDS: TRAMadol 50 mg Tablet PO (20:36)
[2022-06-23] MEDS: FUROsemide 10 mg/mL SDV 4mL 20 MG IVP (20:38)
[2022-06-23 20:48] LABS: Glucose Point of Care 158 mg/dL (70-110)
[2022-06-24] VITALS (26 sets, daily range): BP systolic 126–179; BP diastolic 74–111; PULSE 85–109; RESP 16–28; TEMP 36.7–37.1; O2SAT 86–100; BMI 32.1
[2022-06-24] MEDS: cefepime 2,000 MG in sodium chloride 0.9% (plus) 50 ML 100 MG IV ×2 (01:06→15:54)
[2022-06-24] MEDS: ipratropium-albuterol 3 mL Neb INHALATION ×4 (01:53→20:05)
[2022-06-24] MEDS: clindamycin 900 MG/50 ML PREMIX 100 MG IV (02:46)
--- NOTE | 2022-06-24 03:09 | PC.NURSE ---
Patient was placed on 2L NC during day shift. Upon initial assessment patient's lungs had fine crackles throughout. IV fluids were running at 125. Hospitalist notified and order to stop fluids and admin 20mg lasix were received. Patient's lungs presented clear with the exception of the left base which had previously shown pleural effusion on Chest Xray. Patient remains on 2Liters through this nurses shift however Sp02 has increased.
[2022-06-24 05:22] LABS: Basophils # 0.1 10^3/uL (0.0-0.1); Basophils % 0.6 %; Eosinophils # 0.2 10^3/uL (0.0-0.8); Eosinophils % 2.1 %; Hematocrit 35.7 % (37.0-47.0); Hemoglobin 12.5 g/dL (11.5-15.3); Lymphocytes # 1.8 10^3/uL (0.8-4.8); Lymphocytes % 20.4 %; Mean Corpuscular Hemoglobin 33.7 pg (28.0-34.0); Mean Corpuscular Volume 96.2 fl (81-99); Mean Platelet Volume 12.2 fL (7.4-10.4); Monocytes # 1.2 10^3/uL (0.2-0.9); Monocytes % 13.8 %; Neutrophils % 59.7 %; Nucleated Red Blood Cells % 0 %; Platelet Count 41 10^3/cmm (130-400); Red Blood Count 3.71 10^6/uL (4.1-5.3); Red Cell Distribution Width 14.4 % (12.1-15.1); White Blood Count 8.7 10^3/uL (4.0-10.0)
[2022-06-24 05:47] LABS: Albumin Level 2.3 g/dL (3.5-5.2); Anion Gap 13.1 (5-19); Blood Urea Nitrogen 13 mg/dL (8-23); Calcium 7.7 mg/dL (8.5-10.5); Carbon Dioxide 20 mmol/L (22-29); Chloride 103 mmol/L (98-107); Glomerular Filtration Rate 125.4 mL/min (90-130); Glucose 121 mg/dL (65-115); Magnesium 1.6 mg/dL (1.7-2.3); Phosphorus 2.6 mg/dL (2.5-4.5); Potassium 3.1 mmol/L (3.5-5.1); Sodium 133 mmol/L (136-145)
[2022-06-24 05:51] LABS: Slide Review Slide Review Perform
[2022-06-24 07:10] LABS: Glucose Point of Care 114 mg/dL (70-110)
--- NOTE | 2022-06-24 08:21 | XR_ITS ---
WS: [id number] Portable AP upright chest, 06/24/2022 Clinical Data: sob Comparison: Portable chest, 06/20/2022 Findings: There are bilateral patchy basilar pulmonary opacities which have increased compared to th e prior x-ray. The upper lobes are clear. The heart is normal. No pneumothorax is seen. There are mon itor leads on the chest wall. XR/XR chest 1V portable [id number] Impression: Increasing bilateral patchy pulmonary basilar opacities consistent with worseni ng pneumonia.
--- NOTE | 2022-06-24 08:25 | P.PN_ITS ---
Subjective Subjective: Patient was seen and examined this morning, redness and swelling in the left upper extremity is improving. Good radial pulsation, denied any significant pain, able to move her fingers. Has been afebrile: Platelet count is improving. Medications: Reviewed: Yes Medication Review Details: Generic Name Dose Route Start Last Admin Trade Name Freq PRN Reason Stop Dose Admin Acetaminophen 650 mg 06/20/22 15:44 06/22/22 01:01 Acetaminophen 32 5 Mg Tablet PO 650 mg Q6H PRN Administration MILD PAIN Albuterol/Ipratrop ium 3 ml 06/20/22 20:00 06/24/22 01:53 Ipratropium-Albu terol 3 Ml Neb INHALATION 3 ml Q6H BENJI Administration Cefepime HCl 2,000 mg/ Sodium 50 mls @ 100 mls/ hr 06/21/22 01:00 06/24/22 01:06 Chloride IV 100 mls/hr Q12H BENJI Administration Protocol Clindamycin HCl/De xtrose 900 mg in 50 mls @ 100 mls/hr 06/22/22 18:30 06/24/22 02:46 Cleocin IV 100 mls/hr Q8H BENJI Administration Protocol Vancomycin/PEG/NAD A/Lysine/Water 1,500 mg in 300 m ls @ 200 mls/hr 06/23/22 09:30 06/23/22 21:01 Vancocin IV 200 mls/hr Q12H BENJI Administration Insulin Human Lisp ro 0 unit 06/20/22 18:00 06/24/22 08:02 Insulin Lispro 1 00 Unit/1 Ml SUBCUT Not Given WM&BEDTIME BENJI Protocol Lanolin 1 applic 06/21/22 20:47 06/21/22 22:30 Lanolin Oint 7 G m TOPICAL 1 applic PRN PRN Administration DRYNESS Tramadol HCl 50 mg 06/21/22 23:46 06/23/22 20:36 Tramadol 50 Mg T ablet PO 50 mg Q8H PRN Administration MODERATE PAIN Vitals/I&O/Wt Last Vital Signs Temp 98.1 F 06/24/22 08:00 Pulse 93 06/24/22 08:00 Resp 26 H 06/24/22 08:00 BP 169/84 06/24/22 08:00 Pulse Ox 91 06/24/22 08:00 O2 Del Method 06/24/22 01:53 O2 Flow Rate 2 06/24/22 01:53 06/23/22 06/24/22 06/24/22 22:59 06:59 14:59 Intake Total 1640 / 3280 Output Total 425 / 925 5125 / 6050 Balance 1215 / 2355 -5125 / -2770 Weight last 48 hrs Weight 90.401 kg Weight 90.401 kg Physical Exam Const: COMMON NORMALS: patient oriented x3 HENMT: COMMON NORMALS: normocephalic and atraumatic HEAD & SCALP: normocephalic and atraumatic Resp: COMMON NORMALS: clear to auscultation bilaterally EFFORT & INSPECTION: Yes symmetric chest movement AUSCULTATION: clear to auscultation bilaterally Cardio: COMMON NORMALS: regular rate, regular rhythm, S1 normal heart sound present, S2 normal heart sound present, No gallops present (Cardio), No murmurs present (Cardio), No rub (Cardio) and Peripheral pulses 2+ throughout RATE: regular rate RHYTHM: regular rhythm HEART SOUNDS: S1 normal heart sound present and S2 normal heart sound present PERIPHERAL PULSES: Peripheral pulses 2+ throughout GI: COMMON NORMALS: Normal to inspection, nondistended, normoactive bowel sounds present, Soft to palpation, non-tender, No hepatosplenomegaly present and no masses AUSCULTATION: Yes normoactive bowel sounds PALPATION: Yes Soft to palpation and Yes No hepatosplenomegaly present RECTAL EXAM: deferred Extremity: COMMON NORMALS: no clubbing, cyanosis or edema and no pedal edema Neuro: COMMON NORMALS: patient oriented x3 Urinary Catheter Management: Felix: Cath Placed During This Visit: yes Reason for Continuing Indwelling Catheter: Accurate Measurement of Urinary Output in Critically Ill Patients Urinary Catheter Date of Insertion: 06/20/22 Urinary Catheter Time of Insertion: 13:22 Data 06/24/22 04:48 06/24/22 04:48 Micro: Microbiology 06/20/22 11:35 Blood Culture - Final Blood Strep pyogenes (grp a) 06/20/22 11:33 Blood Culture - Final Blood Strep pyogenes (grp a) 06/22/22 08:32 Blood Culture - Preliminary Blood NEGATIVE TO DATE 06/22/22 08:30 Blood Culture - Preliminary Blood NEGATIVE TO DATE A&P Assessment and plan (1) Sepsis: Sepsis, as evidenced by leukocytosis, fever, tachycardia, tachypnea, cool clammy extremities, significant lactic acidosis. She has received sepsis bolus in the ER. Continue normal saline at 125 cc an hour Blood cultures drawn prior to starting antibiotics. Positive for strep pyogenes group A (4/4) CT hand: No evidence of drainable abscess or fluid collection. CT chest: No septic emboli seen. UE DVT to evalute for septic thrombophlebitis : Negative CT abdomen and pelvis: hepatosplenomegaly with evidence of portal hypertension and paresis with portal collaterals. Unclear as to why patient would have signs of portal hypertension at this time. No h/o alcohol abuse. hepatitis serology negative for hep b or hep c. Prominent gallstones are noted without any gallbladder wall thickening or pericholecystic fluid. Castañeda sign negative on exam. Slight induration around the upper pole of the left kidney noted. UA with positive nitrate, negative leuk esterase, 10-15 WBC and 2+ bacteria. Patient does not endorse any urinary symptoms. No history of orthopedic or cardiac hardware. Negative COVID PCR, negative flu antigens. Empiric antibiotic coverage has been started with cefepime and vancomycin. d/c levaquin Source of sepsis is currently under evaluation. Likely left hand infection with paronychia and ascneding infection. We will plan to discharge patient on cefepime to complete total 4 weeks of IV antibiotic course. Patient will follow ID as outpatient. (2) Thrombocytopenia: related to DIC from sepsis closely monitor for now no signs of obvious bleeding or clotting but at high risk for both (3) Metabolic encephalopathy: Resolved (4) Lactic acidosis: (5) Ketoacidosis: likely 2/2 sepsis, also newly diagnosed DM, Hb a1c 9.7 BS better controlled with insulin (6) DIC (disseminated intravascular coagulation): Plan DVT prophylaxis: SCDs only, not on any heparin products Full code , family updated at beside Attestations Medical Necessity Statement*: Needs to be in hospital for IV antibiotics. Time Spent in Patient Care: Greater than 35 minutes (>than 50% of time spent in counselling and/or direct pt care on unit) . Critical Care Time: The high probability of a clinically significant, sudden or life threatening deterioration of the patient's [] system(s) required my full and direct attention, intervention and personal management. The critical care time is as shown. This time is in addition to time spent performing any reported procedures but includes the following: [x] Data and vital sign review and interpretation [x] Patient assessment, examination and intervention [x] Documentation [x] Medication orders and management Critical Care Time (min): 30 Coding Level of Care Code Acute Code for Chg Fwd Exam Detailed Diagnoses Sepsis A41.9 Thrombocytopenia D69.6 Metabolic encephalopathy G93.41 Lactic acidosis E87.20 Ketoacidosis E87.29 DIC (disseminated intravascular coagulation) D65
[2022-06-24] MEDS: lidocaine 1% 5 ML in potassium chloride premix 100 ML 26.25 ML IV (08:59)
[2022-06-24] MEDS: magnesium sulfate premix 2 GM/50 ML PIGGYBACK IV (09:00)
[2022-06-24] MEDS: vancomycin 1,500 MG/300 ML PIGGYBACK 200 MG IV ×2 (09:00→23:09)
[2022-06-24 11:09] LABS: Glucose Point of Care 189 mg/dL (70-110)
[2022-06-24 17:07] LABS: Glucose Point of Care 211 mg/dL (70-110)
[2022-06-24] MEDS: insulin lispro 100 unit/1 mL SUBCUT ×2 (17:32→23:09)
[2022-06-24 21:21] LABS: Glucose Point of Care 188 mg/dL (70-110)
[2022-06-25] VITALS (11 sets, daily range): BP systolic 170–177; BP diastolic 77–81; PULSE 84–104; RESP 15–17; TEMP 36.7–36.9; O2SAT 92–95; BMI 33.4
[2022-06-25] MEDS: cefepime 2,000 MG in sodium chloride 0.9% (plus) 50 ML 100 MG IV ×2 (00:52→12:42)
[2022-06-25] MEDS: TRAMadol 50 mg Tablet PO (00:57)
--- NOTE | 2022-06-25 01:00 | PC.NURSE ---
Patient's oxygen saturation in high 80s to low 90s. Patient's nasal cannula turned up to 1.5 liters
--- NOTE | 2022-06-25 01:51 | PC.NURSE ---
Dr Morgan notified of elevated blood pressure. Nurse instructed to monitor for now.
[2022-06-25] MEDS: ipratropium-albuterol 3 mL Neb INHALATION ×3 (03:05→14:00)
[2022-06-25 05:00] LABS: Basophils # 0.1 10^3/uL (0.0-0.1); Basophils % 0.6 %; Eosinophils # 0.3 10^3/uL (0.0-0.8); Eosinophils % 3.2 %; Hematocrit 35.7 % (37.0-47.0); Hemoglobin 12.3 g/dL (11.5-15.3); Mean Corpuscular HGB Conc 34.5 g/dL (30.0-36.0); Mean Corpuscular Hemoglobin 33.3 pg (28.0-34.0); Mean Corpuscular Volume 96.7 fl (81-99); Mean Platelet Volume 12.9 fL (7.4-10.4); Monocytes # 0.9 10^3/uL (0.2-0.9); Monocytes % 11.8 %; Neutrophils # 4.12 10^3/uL (1.8-7.7); Neutrophils % 53.4 %; Nucleated Red Blood Cells % 0 %; Platelet Count 76 10^3/cmm (130-400); Red Blood Count 3.69 10^6/uL (4.1-5.3); Red Cell Distribution Width 14.3 % (12.1-15.1); White Blood Count 7.7 10^3/uL (4.0-10.0)
[2022-06-25 05:21] LABS: Alanine Aminotransferase 32 U/L (0-33); Albumin Level 2.3 g/dL (3.5-5.2); Alkaline Phosphatase 97 U/L (35-105); Aspartate Amino Transferase 43 U/L (0-32); Blood Urea Nitrogen 11 mg/dL (8-23); Calcium 7.4 mg/dL (8.5-10.5); Carbon Dioxide 22 mmol/L (22-29); Chloride 102 mmol/L (98-107); Glomerular Filtration Rate 226.2 mL/min (90-130); Glucose 151 mg/dL (65-115); Osmolality Calculated 278 mOsm/kg (285-295); Sodium 133 mmol/L (136-145); Total Bilirubin 1.6 mg/dL (0.15-1.2); Total Protein 6.3 g/dL (6.6-8.7)
[2022-06-25 05:23] LABS: Anion Gap 12.1 (5-19); Potassium 3.1 mmol/L (3.5-5.1)
--- NOTE | 2022-06-25 07:00 | PC.NURSE ---
Midline cath placed to right basilic vein without difficulty for IV antibiotics x 2 weeks. Arm circumference 31 cm measured 10 cm from right AC space. Cath length 15 cm with 0 cm external length. Dressing due to be changed tomorrow 06/26/22. Report given to patient care nurse.
[2022-06-25 07:48] LABS: Glucose Point of Care 127 mg/dL (70-110)
[2022-06-25] MEDS: lidocaine 1% 5 ML in potassium chloride premix 100 ML 26.25 ML IV (08:51)
[2022-06-25] MEDS: vancomycin 1,500 MG/300 ML PIGGYBACK 200 MG IV (09:00)
[2022-06-25 11:05] LABS: Glucose Point of Care 159 mg/dL (70-110)
--- NOTE | 2022-06-25 11:41 | P.DS_ITS ---
Discharge Providers Date of Admission: 06/20/22 15:42 Date of Discharge: June 25, 2022 Attending Provider at Admission: Polly Gómez MD Attending Provider at Discharge: Gerard Aguirre MD Diagnoses at Discharge Discharge Diagnosis (1) Sepsis: Status: Acute (2) Thrombocytopenia: Status: Acute (3) Metabolic encephalopathy: Status: Acute (4) Lactic acidosis: Status: Acute (5) Ketoacidosis: Status: Acute (6) DIC (disseminated intravascular coagulation): Status: Acute Reason for Visit Reason for Visit: AMS, N/V Hospital Course Hospital Course HPI: Polly Gómez MD Silvia Mcneal is a 61 year old female brought to the emergency room by her family today with chief complaints of being unwell over the last 2 days.? Specifics are not really available, patient is extremely lethargic therefore only participates in her history intermittently.? Patient has not been to a physician in over 5 years.? States that she has no known comorbidities that she is aware of.? Comes in today complaining of 2 days of generalized weakness lethargy fever and some cough.? Cannot tell me if she has had any expectoration or not.? No sick contacts apparently at home.? Upon arrival here she is noted to be significantly dehydrated.? Her lips are dry cracked and it appears that she has been vomiting given that her teeth are slightly eroded.? She does endorse vomiting however denies any abdominal pain or diarrhea.? Her left index finger is noted to have paronychia which she states is from constantly picking on it.? She denies any human or animal bites over this finger.? Denies any photophobia or headache.? Per she did fall 2 days ago and hit her head.? CT of the head performed today does not show any bleeding.? She denies any dysuria. She has significantly deranged labs.? Lactate is at 8.? She has leukocytosis.? She is febrile to 104 Fahrenheit.? Platelets are 34,000, unknown chronicity.? Blood sugar elevated more than 400 upon admission with an anion gap, improved to 280 upon reassessment.? She has hyponatremia and hypokalemia. Hospital course: She was admitted for the management of sepsis secondary to left upper extremity cellulitis:CT hand:?No evidence of drainable abscess or fluid collection.CT chest: No septic emboli seen.UE DVT to evalute for septic thrombophlebitis : Negative ,CT abdomen and pelvis: hepatosplenomegaly with evidence of portal hypertension and paresis with portal collaterals.? Unclear as to why patient would have signs of portal hypertension at this time.? No h/o alcohol abuse. hepatitis serology negative for hep b or hep c. Prominent gallstones are noted without any gallbladder wall thickening or pericholecystic fluid.? Castañeda sign negative on exam.? Slight induration around the upper pole of the left kidney noted. COVID PCR was negative, flu was negative, Blood culture grew: strep pyogenes group A (/), repeat blood culture was negative, patient was kept on broad-spectrum antibiotic during the hospital stay, she is being discharged on Cefepime 2 g IV twice daily to complete a total of 4 weeks of IV antibiotic course, hospital course was also complicated by development of thrombocytopenia, DIC has been documented, but her serum fibrinogen is normal, though FDP is elevated, along with elevated PT/INR, and PTT. Possible explanation for thrombocytopenia is sepsis, no evident bleeding petechiae purpura, platelet count was improving at the time of discharge, platelet count on discharge was 76,000. Left upper extremity cellulitis was improving at the time of discharge, patient was also monitored for compartmental syndrome, no conclusive evidence found. At the time of discharge she was hemodynamically stable afebrile.Overall she responded well to above medical management.Discharged in stable condition to home she will follow primary care physician as well as ID as outpatient. Physical Exam Const: COMMON NORMALS: patient oriented x3 HENMT: COMMON NORMALS: normocephalic and atraumatic HEAD & SCALP: normocephalic and atraumatic Resp: COMMON NORMALS: clear to auscultation bilaterally EFFORT & INSPECTION: Yes symmetric chest movement AUSCULTATION: clear to auscultation bilaterally Cardio: COMMON NORMALS: regular rate, regular rhythm, S1 normal heart sound present, S2 normal heart sound present, No gallops present (Cardio), No murmurs present (Cardio), No rub (Cardio) and Peripheral pulses 2+ throughout RATE: regular rate RHYTHM: regular rhythm HEART SOUNDS: S1 normal heart sound present and S2 normal heart sound present PERIPHERAL PULSES: Peripheral pulses 2+ throughout GI: COMMON NORMALS: Normal to inspection, nondistended, normoactive bowel sounds present, Soft to palpation, non-tender, No hepatosplenomegaly present and no masses AUSCULTATION: Yes normoactive bowel sounds PALPATION: Yes Soft to palpation and Yes No hepatosplenomegaly present RECTAL EXAM: deferred Extremity: COMMON NORMALS: no clubbing, cyanosis or edema and no pedal edema Neuro: COMMON NORMALS: patient oriented x3 Urinary Catheter Management: Felix: Cath Placed During This Visit: yes Reason for Continuing Indwelling Catheter: Other Urinary Catheter Date of Insertion: 06/20/22 Urinary Catheter Time of Insertion: 13:22 Discharge Data Studies Completed and Pending Completed Studies During Hospitalization Category Date Time Status CT abdomen pelvis wo con [id number] Stat Cat Scan 06/20/22 12:[address] chest wo con [id number] Routine Cat Scan 06/21/22 11:[address] hand LT wo con* [id number] Routine Cat Scan 06/21/22 11:[address] head wo con* [id number] Stat Cat Scan 06/20/22 12:24 Completed XR chest 1V portable [id number] Routine Exams 06/24/22 08:21 Completed XR chest 1V portable [id number] Stat Exams 06/20/22 10:56 [place] [id number] Routine Ultrasound 06/21/22 15:20 Completed CV. echo complete* [id number] Routine Ultrasound 06/22/22 07:40 Completed Pending at discharge Category Date Time Status Blood Culture Stat Lab 06/22/22 08:32 Results CBC Auto Diff [Complete Blood Count w/Auto] AM LABS Lab 06/26/22 04:00 Ordered CBC Auto Diff [Complete Blood Count w/Auto] AM LABS Lab 06/27/22 04:00 Ordered CMP [Comprehensive Metabolic Panel] AM LABS Lab 06/26/22 04:00 Ordered CMP [Comprehensive Metabolic Panel] AM LABS Lab 06/27/22 04:00 Ordered Vancomycin Trough Timed Lab 06/25/22 20:30 Ordered Radiology Impressions Abdomen/Pelvis CT 06/20/22 12:24 IMPRESSION: 1. Hepatomegaly with splenomegaly. Evidence of portal venous hypertension with varices and portal collaterals. 2. Prominent gallstone in the gallbladder. No gallbladder wall thickening or pericholecystic fluid. 3. Bibasilar atelectasis. 4. Normal caliber abdominal aorta. 5. Small LEFT adrenal adenoma. 6. Low-attenuation ovoid collection in the RIGHT lower quadrant measuring 4.3 x 2.5 cm abutting the descending colon nonspecific but may represent mucocele of the appendix versus incidental chronic seroma or lymphangioma. No prior comparisons. Head CT 06/20/22 12:24 IMPRESSION: 1. No evidence of intracranial hemorrhage or mass effect. 2. No acute intracranial findings. Chest CT 06/21/22 11:16 IMPRESSION: 1. Tiny bilateral pleural effusions with patchy infiltrates in the LEFT greater than RIGHT lower lobes and lingula with interstitial edema. Recommend correlation for pneumonia. No focal consolidation. 2. Cardiomegaly. Tiny pericardial effusion. 3. Partially visualized large gallstone in the upper abdomen. 4. Hepatomegaly and splenomegaly. Evidence of portal venous hypertension. Hand CT 06/21/22 11:17 IMPRESSION: 1. Soft tissue edema dorsal hand worse overlying the 2nd and 3rd metatarsal. No evidence of drainable abscess or fluid collection. 2. No evidence of osteomyelitis. 3. No other acute findings. Venous Duplex 06/21/22 15:20 IMPRESSION: No evidence of deep vein thrombosis. Chest X-Ray 06/24/22 08:21 Impression: Increasing bilateral patchy pulmonary basilar opacities consistent with worsening pneumonia. Laboratory Results WBC 7.7 10^3/uL (4.0-10.0) 06/25/22 04:24 RBC 3.69 10^6/uL (4.1-5.3) L 06/25/22 04:24 Hgb 12.3 g/dL (11.5-15.3) 06/25/22 04:24 Hct 35.7 % (37.0-47.0) L 06/25/22 04:24 MCV 96.7 fl (81-99) 06/25/22 04:24 MCH 33.3 pg (28.0-34.0) 06/25/22 04:24 MCHC 34.5 g/dL (30.0-36.0) 06/25/22 04:24 RDW 14.3 % (12.1-15.1) 06/25/22 04:24 Plt Count 76 10^3/cmm (130-400) L D 06/25/22 04:24 MPV 12.9 fL (7.4-10.4) H 06/25/22 04:24 Neut % (Auto) 53.4 % 06/25/22 04:24 Lymph % (Auto) 26.0 % 06/25/22 04:24 [place]aine % (Auto) 11.8 % 06/25/22 04:24 Eos % (Auto) 3.2 % 06/25/22 04:24 Baso % (Auto) 0.6 % 06/25/22 04:24 Neut # (Auto) 4.12 10^3/uL (1.8-7.7) 06/25/22 04:24 Lymph # (Auto) 2.0 10^3/uL (0.8-4.8) 06/25/22 04:24 [place]aine # (Auto) 0.9 10^3/uL (0.2-0.9) 06/25/22 04:24 Eos # (Auto) 0.3 10^3/uL (0.0-0.8) 06/25/22 04:24 Baso # (Auto) 0.1 10^3/uL (0.0-0.1) 06/25/22 04:24 Nucleated RBC % (auto) 0 % 06/25/22 04:24 Total Counted 100 (0-100) 06/20/22 10:40 Atypical Lymphs % 0.0 % (0-5) 06/20/22 10:40 Absolute Neutrophils 14.1 10^3/cmm (1.4-6.5) H 06/20/22 10:40 Segmented Neutrophils 70 % 06/20/22 10:40 Abs Segm Neuts (Man) 11.0 10/cmm (1.6-7.1) H 06/20/22 10:40 Band Neutrophils 20.0 % 06/20/22 10:40 Abs Band Neuts (Man) 3.1 10^3/cmm (0.0-1.2) H 06/20/22 10:40 Absolute Lymphocytes 0.8 10^3/cmm (1.2-3.4) L 06/20/22 10:40 Lymphocytes (Manual) 5 % 06/20/22 10:40 Monocytes (Manual) 5.0 % 06/20/22 10:40 Absolute Monocytes 0.8 10^3/cmm (0.1-0.6) H 06/20/22 10:40 Eosinophils (Manual) 0 % 06/20/22 10:40 Absolute Eosinophils 0.0 10^3/cmm (0.0-0.7) 06/20/22 10:40 Basophils (Manual) 0.0 % 06/20/22 10:40 Absolute Basophils 0.0 10^3/cmm (0.0-0.2) 06/20/22 10:40 Nucleated RBCs # 0.0 /100WBC 06/25/22 04:24 Platelet Estimate Decreased (Normal) L 06/20/22 10:40 PT 28.10 SECONDS (12.1-14.9) H 06/20/22 17:35 INR 2.60 (0.8-1.2) H 06/20/22 17:35 APTT 59.5 SECONDS (23.9-36.7) H 06/20/22 17:35 Fibrinogen 264 mg/dL (174-498) 06/20/22 17:35 Fibrin Degrad Products Pos, >=40 ug/mL (NEG) H 06/20/22 17:35 D-Dimer >= 20.00 ug/mIFEU (0-0.59) H 06/20/22 17:35 Specimen Type Arterial 06/20/22 11:15 Sample Site Radial, right 06/20/22 11:15 ABG pH 7.47 (7.35-7.45) H 06/20/22 11:15 ABG pCO2 23.2 mmHg (35-45) L 06/20/22 11:15 ABG pO2 68.2 mmHg (80.0-100.0) L 06/20/22 11:15 ABG HCO3 17.0 mmol/L (22-26) L 06/20/22 11:15 ABG O2 Saturation 95.6 06/20/22 11:15 ABG Base Excess -4.6 mmol/L (-2.0-2.0) L 06/20/22 11:15 Joshua Test Pos 06/20/22 11:15 A-a O2 Gradient 6.7 mmHg (5-10) 06/20/22 11:15 Hematocrit 43.3 % (37-47) 06/20/22 11:15 Hgb O2 Saturation 93.7 % (95-100) L 06/20/22 11:15 Carboxyhemoglobin 1.5 %THgb (0.4-20.1) 06/20/22 11:15 Methemoglobin 0.5 % (0.4-1.5) 06/20/22 11:15 Total Hemoglobin 14.1 g/dL (12-16) 06/20/22 11:15 Sodium 129.0 mmol/L (131-143) L 06/20/22 11:15 Potassium 3.1 mmol/L (3.5-5.0) L 06/20/22 11:15 Glucose 318.0 mg/dL (70-115) H 06/20/22 11:15 Ionized Calcium 1.1 mmol/L (1.1-1.4) 06/20/22 11:15 O2 Delivery Device Room air 06/20/22 11:15 FiO2 21.0 % 06/20/22 11:15 Textile Dyer ID Cak 06/20/22 11:15 Sodium 133 mmol/L (136-145) L 06/25/22 04:24 Potassium 3.1 mmol/L (3.5-5.1) L 06/25/22 04:24 Chloride 102 mmol/L (98-107) 06/25/22 04:24 Carbon Dioxide 22 mmol/L (22-29) 06/25/22 04:24 Anion Gap 12.1 (5-19) 06/25/22 04:24 BUN 11 mg/dL (8-23) 06/25/22 04:24 Creatinine 0.3 mg/dL (0.5-0.9) L 06/25/22 04:24 GFR Calculation 226.2 mL/min (90-130) H 06/25/22 04:24 Glucose 151 mg/dL (65-115) H 06/25/22 04:24 POC Glucose 159 mg/dL (70-110) H 06/25/22 11:02 Estimat Average Glucose 232 06/20/22 18:20 Hemoglobin A1c 9.7 % (4.0-6.0) H 06/20/22 18:20 Calculated Osmolality 278 mOsm/kg (285-295) L 06/25/22 04:24 Lactic Acid 5.6 mmol/L (0.5-2.2) H* 06/20/22 17:35 Lactic Acid (Sepsis) 4.0 mmol/L (0.5-2.2) H 06/20/22 22:50 Lactate 3.3 mmol/L (0.5-2.2) H 06/21/22 03:38 Calcium 7.4 mg/dL (8.5-10.5) L 06/25/22 04:24 Phosphorus 2.6 mg/dL (2.5-4.5) 06/24/22 04:48 Magnesium 1.6 mg/dL (1.7-2.3) L 06/24/22 04:48 Total Bilirubin 1.6 mg/dL (0.15-1.2) H 06/25/22 04:24 AST 43 U/L (0-32) H 06/25/22 04:24 ALT 32 U/L (0-33) 06/25/22 04:24 Alkaline Phosphatase 97 U/L (35-105) 06/25/22 04:24 Creatine Kinase 1742 U/L (26-192) H* 06/20/22 18:20 Total Protein 6.3 g/dL (6.6-8.7) L 06/25/22 04:24 Albumin 2.3 g/dL (3.5-5.2) L 06/25/22 04:24 Globulin 4.0 g/dL (1.3-4.6) 06/25/22 04:24 Urine Color Chyna (Yellow) 06/20/22 13:14 Urine Appearance Hazy (CLEAR) A 06/20/22 13:14 Urine pH 5 (5-7) 06/20/22 13:14 Ur Specific [place] 1.020 (1.005-1.030) 06/20/22 13:14 Urine Protein 1+ (Negative) H 06/20/22 13:14 Urine Glucose (UA) 2+ (Normal) H 06/20/22 13:14 Urine Ketones 1+ (Negative) H 06/20/22 13:14 Urine Blood 3+ (Negative) H 06/20/22 13:14 Urine Nitrate Positive (Negative) H 06/20/22 13:14 Urine Bilirubin Neg (Negative) 06/20/22 13:14 Urine Urobilinogen Neg mg/dL (Negative) 06/20/22 13:14 Ur Leukocyte Esterase Negative (Negative) 06/20/22 13:14 Urine RBC 10-15 /hpf (0-2) H 06/20/22 13:14 Urine WBC 10-15 /hpf (0-5) H 06/20/22 13:14 Ur Squamous Epith Cells 0-4 /hpf (0-5) H 06/20/22 13:14 Ur Transition Epith Cell 0-4 /hpf 06/20/22 13:14 Amorphous Sediment 2+ /hpf 06/20/22 13:14 Urine Bacteria 2+ /hpf (NONE) H 06/20/22 13:14 Vancomycin Trough 8.7 ug/mL (10-15) L 06/23/22 06:35 Urine Opiates Screen Negative ng/mL (Negative) 06/20/22 Unknown Ur Barbiturates Screen Negative ng/mL (Negative) 06/20/22 Unknown Ur Phencyclidine Scrn Negative ng/mL (Negative) 06/20/22 Unknown Ur Amphetamines Screen Negative ng/mL (Negative) 06/20/22 Unknown U Benzodiazepines Scrn Negative ng/mL (Negative) 06/20/22 Unknown Urine Cocaine Screen Negative ng/mL (Negative) 06/20/22 Unknown U Marijuana (THC) Screen Negative ng/mL (Negative) 06/20/22 Unknown Ethyl Alcohol < 10 mg/dL (0-10) 06/20/22 18:20 Coronavirus 229E (PCR) Not detected (NOT DETECT) 06/20/22 11:10 Hepatitis A IgM Ab Non-reactive (Nonreactive) 06/20/22 18:20 Hep Bs Antigen Non-reactive (Nonreactive) 06/20/22 18:20 Hep Bs Antibody 3.5 (11.5-1000) L 06/20/22 18:20 Hep B Core Total Ab Non-reactive (Nonreactive) 06/20/22 18:20 Hepatitis C Antibody Non-reactive (Nonreactive) 06/20/22 18:20 Influenza Type A Ag negative (Negative) 06/20/22 11:10 Influenza Type B Ag negative (Negative) 06/20/22 11:10 SARS-CoV-2 (PCR) Not detected (NOT DETECT) 06/20/22 11:10 Vitals Last Vital Signs Temp 98.1 F 06/25/22 07:59 Pulse 89 06/25/22 08:24 Resp 16 06/25/22 08:00 BP 172/80 06/25/22 07:59 Pulse Ox 95 06/25/22 08:00 O2 Del Method 06/25/22 08:00 O2 Flow Rate 1 06/25/22 08:00 Discharge Plan Discharge Patient Disposition: Home Condition: Stable Prescriptions: New acetaminophen 325 mg Tablet 650 mg PO Q6H PRN (Reason: Mild Pain) 14 Days Qty: 30 0RF tramadol 50 mg Tablet 50 mg PO Q8H PRN (Reason: Moderate Pain) 14 Days Qty: 20 0RF Discharge Orders: Discharge Order (Routine); Ordered 06/25/22 Ordered By: Gerard Aguirre Other Ambulatory Orders: Complete Blood Count w/Auto (Routine) Timeframe: 1 Week Location: Determined by Patient Ordered By: Gerard Aguirre Comprehensive Metabolic Panel (Routine) Timeframe: 1 Week Facility: [facility] - Location: Lab - Main Lab Ordered By: Gerard Aguirre Comprehensive Metabolic Panel (Routine) Timeframe: 1 Week Location: Determined by Patient Ordered By: Gerard Aguirre Referrals: David Roth MD [Physician] - 06/28/22 1:00 pm (Please follow up with Dr. Roth on Jun 28 at 1 pm. Please arrive 15 min early for paperwork. ) Polly Gómez MD [Hospitalist] - 07/25/22 9:15 am Patient Instructions: Tramadol (By mouth), Cellulitis (GEN), How to Care for Your Midline Catheter (GEN), Opioid Safety Discharge Attestations Time Spent in Discharge Care*: greater than 30 min Quality Metrics Clinical Quality Measures [ No reported AMI, CVA or VTE this stay] Coding Level of Care Code Acute Chg FW DC note Exam Detailed Diagnoses Sepsis A41.9 Thrombocytopenia D69.6 Metabolic encephalopathy G93.41 Lactic acidosis E87.20 Ketoacidosis E87.29 DIC (disseminated intravascular coagulation) D65
[2022-06-25] MEDS: insulin lispro 100 unit/1 mL SUBCUT (12:41)
--- NOTE | 2022-07-03 08:34 | ED_ITS ---
HPI - General Adult General: Chief complaint: Altered Mental Status Stated complaint: AMS, N/V Time Seen by Provider: 06/20/22 10:55 Source: patient Mode of arrival: EMS History of Present Illness: 61-year-old female presents emergency room with altered mental status is at the bedside. She fell a couple of days ago there is no loss of consciousness. On arrival here she is febrile and tachycardic. Mild abdominal discomfort no reports of vomiting or diarrhea. had thought that she was diabetic because she he states she gets sick every time she eats blood sugar on arrival here is in the 400s Onset (ago): hour(s) Relieving factors: none Exacerbating factors: none Associated symptoms: Reports confusion, headache(s), malaise, nausea and weakness; Deny chest pain, cough, diaphoresis, decreased appetite, dyspnea, fevers/chills, rash, palpitations, seizures, short of breath, syncope or vomiting Treatments prior to arrival: none Review of Systems Const: Reports: fever(s), chills, fatigue and malaise; Denies: diaphoresis ENMT: Denies: throat pain, ear or mastoid pain, nasal discharge or nasal congestion Card: Denies: chest pain, palpitations or syncope Resp: Denies: dyspnea GI: Reports: nausea; Denies: abdominal pain or vomiting : Denies: flank pain, difficulty voiding, dysuria, urinary frequency or urinary urgency Skin/Breast: Denies: rash or pruritus Neuro: Reports: headache(s) and confusion PFS ED PFSH: Medical History Anxiety Diabetes type 2, uncontrolled DIC (disseminated intravascular coagulation) Hypertension Ketoacidosis Lactic acidosis Metabolic encephalopathy Sepsis Thrombocytopenia Thyroid nodule greater than or equal to 1.5 cm in diameter incidentally noted on imaging study Physical Exam Const: GENERAL APPEARANCE: cooperative and lethargic ORIENTATION/CONSCIOUSNESS: Yes confused and Yes lethargic HENMT: COMMON NORMALS: normocephalic, atraumatic and hearing grossly normal bilaterally HEAD & SCALP: normocephalic and atraumatic Resp: COMMON NORMALS: normal respiratory effort, No retractions and No use of accessory muscles AUSCULTATION: rhonchi and wheezes Cardio: COMMON NORMALS: regular rhythm and No murmurs present (Cardio) RATE: tachycardic RHYTHM: regular rhythm GI: COMMON NORMALS: Soft to palpation and No hepatosplenomegaly present AUSCULTATION: Yes normoactive bowel sounds PALPATION: Yes Soft to palpation, No Tenderness to palpation present (GI), No Guarding due to palpation present (GI) and Yes No hepatosplenomegaly present Extremity: COMMON NORMALS: normal to inspection, capillary refill normal, no clubbing, cyanosis or edema, no calf tenderness and no pedal edema Neuro: SENSORIUM/ORIENTATION: Yes lethargic Skin: COMMON NORMALS: no rashes or lesions noted GENERAL SKIN EXAM: no rashes or lesions noted Course Vital Signs: Vital signs: Vital Signs Temperature 98.3 F 06/25/22 12:00 Pulse Rate 88 06/25/22 14:07 Respiratory Rate 16 06/25/22 14:00 Blood Pressure 174/81 06/25/22 12:00 Pulse Oximetry 94 06/25/22 14:00 Oxygen Delivery Me thod 06/25/22 14:00 Oxygen Flow Rate 1 06/25/22 08:00 MDM - General Adult Medical Decision Making Sepsis likely secondary to pneumonia patient has metabolic encephalopathy. Discussed the hospitalist orders written. Labs imaging and EKG reviewed as found in the chart no acute changes on EKGs. Medical Records I reviewed the patient's medical records. Lab Data I reviewed the patient's lab results. 06/25/22 04:24 06/25/22 04:24 Radiology Impressions Abdomen/Pelvis CT 06/20/22 12:24 IMPRESSION: 1. Hepatomegaly with splenomegaly. Evidence of portal venous hypertension with varices and portal collaterals. 2. Prominent gallstone in the gallbladder. No gallbladder wall thickening or pericholecystic fluid. 3. Bibasilar atelectasis. 4. Normal caliber abdominal aorta. 5. Small LEFT adrenal adenoma. 6. Low-attenuation ovoid collection in the RIGHT lower quadrant measuring 4.3 x 2.5 cm abutting the descending colon nonspecific but may represent mucocele of the appendix versus incidental chronic seroma or lymphangioma. No prior comparisons. Head CT 06/20/22 12:24 IMPRESSION: 1. No evidence of intracranial hemorrhage or mass effect. 2. No acute intracranial findings. Chest CT 06/21/22 11:16 IMPRESSION: 1. Tiny bilateral pleural effusions with patchy infiltrates in the LEFT greater than RIGHT lower lobes and lingula with interstitial edema. Recommend correlation for pneumonia. No focal consolidation. 2. Cardiomegaly. Tiny pericardial effusion. 3. Partially visualized large gallstone in the upper abdomen. 4. Hepatomegaly and splenomegaly. Evidence of portal venous hypertension. Hand CT 06/21/22 11:17 IMPRESSION: 1. Soft tissue edema dorsal hand worse overlying the 2nd and 3rd metatarsal. No evidence of drainable abscess or fluid collection. 2. No evidence of osteomyelitis. 3. No other acute findings. Venous Duplex 06/21/22 15:20 IMPRESSION: No evidence of deep vein thrombosis. Chest X-Ray 06/24/22 08:21 Impression: Increasing bilateral patchy pulmonary basilar opacities consistent with worsenin g pneumonia. Laboratory Results WBC 15.7 10^3/uL (4.0-10.0) H 06/20/22 10:40 RBC 4.11 10^6/uL (4.1-5.3) 06/20/22 10:40 Hgb 13.8 g/dL (11.5-15.3) 06/20/22 10:40 Hct 40.0 % (37.0-47.0) 06/20/22 10:40 MCV 97.3 fl (81-99) 06/20/22 10:40 MCH 33.6 pg (28.0-34.0) 06/20/22 10:40 MCHC 34.5 g/dL (30.0-36.0) 06/20/22 10:40 RDW 13.0 % (12.1-15.1) 06/20/22 10:40 Plt Count 34 10^3/cmm (130-400) L 06/20/22 10:40 MPV 11.8 fL (7.4-10.4) H 06/20/22 10:40 Neut % (Auto) 94.4 % 06/20/22 10:40 Lymph % (Auto) 1.3 % 06/20/22 10:40 Todd % (Auto) 2.1 % 06/20/22 10:40 Eos % (Auto) 0.0 % 06/20/22 10:40 Baso % (Auto) 0.5 % 06/20/22 10:40 Neut # (Auto) 14.47 10^3/uL (1.8-7.7) H 06/20/22 10:40 Lymph # (Auto) 0.2 10^3/uL (0.8-4.8) L 06/20/22 10:40 Todd # (Auto) 0.3 10^3/uL (0.2-0.9) 06/20/22 10:40 Eos # (Auto) 0.0 10^3/uL (0.0-0.8) 06/20/22 10:40 Baso # (Auto) 0.1 10^3/uL (0.0-0.1) 06/20/22 10:40 Nucleated RBC % (auto) 0 % 06/20/22 10:40 Total Counted 100 (0-100) 06/20/22 10:40 Atypical Lymphs % 0.0 % (0-5) 06/20/22 10:40 Absolute Neutrophils 14.1 10^3/cmm (1.4-6.5) H 06/20/22 10:40 Segmented Neutrophils 70 % 06/20/22 10:40 Abs Segm Neuts (Man) 11.0 10/cmm (1.6-7.1) H 06/20/22 10:40 Band Neutrophils 20.0 % 06/20/22 10:40 Abs Band Neuts (Man) 3.1 10^3/cmm (0.0-1.2) H 06/20/22 10:40 Absolute Lymphocytes 0.8 10^3/cmm (1.2-3.4) L 06/20/22 10:40 Lymphocytes (Manual) 5 % 06/20/22 10:40 Monocytes (Manual) 5.0 % 06/20/22 10:40 Absolute Monocytes 0.8 10^3/cmm (0.1-0.6) H 06/20/22 10:40 Eosinophils (Manual) 0 % 06/20/22 10:40 Absolute Eosinophils 0.0 10^3/cmm (0.0-0.7) 06/20/22 10:40 Basophils (Manual) 0.0 % 06/20/22 10:40 Absolute Basophils 0.0 10^3/cmm (0.0-0.2) 06/20/22 10:40 Nucleated RBCs # 0.0 /100WBC 06/20/22 10:40 Platelet Estimate Decreased (Normal) L 06/20/22 10:40 Specimen Type Arterial 06/20/22 11:15 Sample Site Radial, right 06/20/22 11:15 ABG pH 7.47 (7.35-7.45) H 06/20/22 11:15 ABG pCO2 23.2 mmHg (35-45) L 06/20/22 11:15 ABG pO2 68.2 mmHg (80.0-100.0) L 06/20/22 11:15 ABG HCO3 17.0 mmol/L (22-26) L 06/20/22 11:15 ABG O2 Saturation 95.6 06/20/22 11:15 ABG Base Excess -4.6 mmol/L (-2.0-2.0) L 06/20/22 11:15 Joshua Test Pos 06/20/22 11:15 A-a O2 Gradient 6.7 mmHg (5-10) 06/20/22 11:15 Hematocrit 43.3 % (37-47) 06/20/22 11:15 Hgb O2 Saturation 93.7 % (95-100) L 06/20/22 11:15 Carboxyhemoglobin 1.5 %THgb (0.4-20.1) 06/20/22 11:15 Methemoglobin 0.5 % (0.4-1.5) 06/20/22 11:15 Total Hemoglobin 14.1 g/dL (12-16) 06/20/22 11:15 Sodium 129.0 mmol/L (131-143) L 06/20/22 11:15 Potassium 3.1 mmol/L (3.5-5.0) L 06/20/22 11:15 Glucose 318.0 mg/dL (70-115) H 06/20/22 11:15 Ionized Calcium 1.1 mmol/L (1.1-1.4) 06/20/22 11:15 O2 Delivery Device Room air 06/20/22 11:15 FiO2 21.0 % 06/20/22 11:15 Hazmat Technician ID Cak 06/20/22 11:15 Sodium 128 mmol/L (136-145) L 06/20/22 10:40 Potassium 3.2 mmol/L (3.5-5.1) L 06/20/22 10:40 Chloride 92 mmol/L (98-107) L 06/20/22 10:40 Carbon Dioxide 17 mmol/L (22-29) L 06/20/22 10:40 Anion Gap 22.2 (5-19) H 06/20/22 10:40 BUN 23 mg/dL (8-23) 06/20/22 10:40 Creatinine 1.1 mg/dL (0.5-0.9) H 06/20/22 10:40 GFR Calculation 50.5 mL/min (90-130) L 06/20/22 10:40 Glucose 348 mg/dL (65-115) H 06/20/22 10:40 Calculated Osmolality 284 mOsm/kg (285-295) L 06/20/22 10:40 Lactic Acid 8.7 mmol/L (0.5-2.2) H* 06/20/22 10:40 Lactic Acid (Sepsis) 7.0 mmol/L (0.5-2.2) H* 06/20/22 14:37 Calcium 8.8 mg/dL (8.5-10.5) 06/20/22 10:40 Total Bilirubin 2.2 mg/dL (0.15-1.2) H 06/20/22 10:40 AST 71 U/L (0-32) H 06/20/22 10:40 ALT 29 U/L (0-33) 06/20/22 10:40 Alkaline Phosphatase 69 U/L (35-105) 06/20/22 10:40 Total Protein 6.8 g/dL (6.6-8.7) 06/20/22 10:40 Albumin 3.0 g/dL (3.5-5.2) L 06/20/22 10:40 Globulin 3.8 g/dL (1.3-4.6) 06/20/22 10:40 Urine Color Chyna (Yellow) 06/20/22 13:14 Urine Appearance Hazy (CLEAR) A 06/20/22 13:14 Urine pH 5 (5-7) 06/20/22 13:14 Ur Specific [place] 1.020 (1.005-1.030) 06/20/22 13:14 Urine Protein 1+ (Negative) H 06/20/22 13:14 Urine Glucose (UA) 2+ (Normal) H 06/20/22 13:14 Urine Ketones 1+ (Negative) H 06/20/22 13:14 Urine Blood 3+ (Negative) H 06/20/22 13:14 Urine Nitrate Positive (Negative) H 06/20/22 13:14 Urine Bilirubin Neg (Negative) 06/20/22 13:14 Urine Urobilinogen Neg mg/dL (Negative) 06/20/22 13:14 Ur Leukocyte Esterase Negative (Negative) 06/20/22 13:14 Urine RBC 10-15 /hpf (0-2) H 06/20/22 13:14 Urine WBC 10-15 /hpf (0-5) H 06/20/22 13:14 Ur Squamous Epith Cells 0-4 /hpf (0-5) H 06/20/22 13:14 Ur Transition Epith Cell 0-4 /hpf 06/20/22 13:14 Amorphous Sediment 2+ /hpf 06/20/22 13:14 Urine Bacteria 2+ /hpf (NONE) H 06/20/22 13:14 Coronavirus 229E (PCR) Not detected (NOT DETECT) 06/20/22 11:10 Influenza Type A Ag negative (Negative) 06/20/22 11:10 Influenza Type B Ag negative (Negative) 06/20/22 11:10 SARS-CoV-2 (PCR) Not detected (NOT DETECT) 06/20/22 11:10 Discharge Plan Discharge Patient Disposition: Admitted As Inpatient Admit Provider: Polly Gómez Clinical Impression: Sepsis, Thrombocytopenia, Transaminitis, Diabetes type 2, uncontrolled, Community acquired pneumonia Condition: Stable Coding Level of Care Code ED Full Stack Software Developer for Briana Qureshi
== END 2022-06-25 14:45 | disposition home health service (06) | DRG 871 ==
LOC: ER 14:48 → ICU 15:52 → MEDSURG 06-24 16:38
PROVIDERS: Family Medicine; Internal Medicine; Admitting Provider Student in an Organized Health Care Education/Training Program; Emergency Provider Family Medicine; Visit Provider Internal Medicine
DX: A41.9 Sepsis, unspecified organism (principal); D65 Disseminated intravascular coagulation [defibrination syndrome]; G93.41 Metabolic encephalopathy; E87.1 Hypo-osmolality and hyponatremia; K76.6 Portal hypertension; E87.29 Other acidosis; L03.012 Cellulitis of left finger; E86.0 Dehydration; E87.6 Hypokalemia; K80.20 Calculus of gallbladder without cholecystitis without obstruction; B95.0 Streptococcus, group A, as the cause of diseases classified elsewhere; Z88.1 Allergy status to other antibiotic agents; Z88.0 Allergy status to penicillin; R16.2 Hepatomegaly with splenomegaly, not elsewhere classified
CPT/HCPCS: 36415; 36416; 36569; 36600; 51702; 70450; 71045; 71250; 73200; 74176; 80048; 80051; 80053; 80069; 80202; 80306; 80307; 81001; 82330; 82550; 82805; 82962; 83036; 83605; 83735; 84100; 85007; 85025; 85362; 85378; 85384; 85610; 85730; 86705; 86706; 86709; 86803; 87040; 87186; 87205; 87340; 87635; 87804; 93005; 93306; 93971; 94640; 94664; 94760; 96365; 96367; 96372; 99285; C1751; J0131; J0692; J1650; J1815; J1940; J1956; J3370; J3475; J3480; J3490; J7030; J7050

== ENCOUNTER 2022-07-01 13:15 | Outpatient (CLI) | payer OTHER, SELFPAY ==
[2022-07-01 13:21] LABS: Basophils # 0.1 10^3/uL (0.0-0.1); Basophils % 0.8 %; Eosinophils # 0.1 10^3/uL (0.0-0.8); Eosinophils % 1.1 %; Hematocrit 37.7 % (37.0-47.0); Hemoglobin 12.5 g/dL (11.5-15.3); Lymphocytes # 1.9 10^3/uL (0.8-4.8); Lymphocytes % 25.3 %; Mean Corpuscular HGB Conc 33.2 g/dL (30.0-36.0); Mean Corpuscular Hemoglobin 32.9 pg (28.0-34.0); Mean Corpuscular Volume 99.2 fl (81-99); Monocytes # 0.8 10^3/uL (0.2-0.9); Monocytes % 10.5 %; Neutrophils # 4.55 10^3/uL (1.8-7.7); Neutrophils % 61.8 %; Nucleated Red Blood Cells % 0 %; Platelet Count 129 10^3/cmm (130-400); Red Cell Distribution Width 13.8 % (12.1-15.1); White Blood Count 7.4 10^3/uL (4.0-10.0)
[2022-07-01 13:38] LABS: Alanine Aminotransferase 20 U/L (0-33); Albumin Level 2.8 g/dL (3.5-5.2); Alkaline Phosphatase 113 U/L (35-105); Anion Gap 11.5 (5-19); Aspartate Amino Transferase 30 U/L (0-32); Blood Urea Nitrogen 6 mg/dL (8-23); Calcium 7.9 mg/dL (8.5-10.5); Carbon Dioxide 27 mmol/L (22-29); Chloride 92 mmol/L (98-107); Globulin 5.6 g/dL (1.3-4.6); Glomerular Filtration Rate 226.2 mL/min (90-130); Glucose 229 mg/dL (65-115); Osmolality Calculated 269 mOsm/kg (285-295); Potassium 3.5 mmol/L (3.5-5.1); Sodium 127 mmol/L (136-145); Total Bilirubin 1.8 mg/dL (0.15-1.2); Total Protein 8.4 g/dL (6.6-8.7)
[2022-07-02 12:29] LABS: Free T4 Free Thyroxine 1.41 ng/dL (0.82-1.77); Thyroid Stimulating Hormone 2.68 uIU/mL (0.27-4.20)
== END 2022-07-01 13:16 | disposition home or self-care (01) ==
PROVIDERS: Family Medicine Adult Medicine; Visit Provider Internal Medicine
DX: E04.1 Nontoxic single thyroid nodule (principal); I10 Essential (primary) hypertension
CPT/HCPCS: 80053; 84439; 84443; 85025

== ENCOUNTER 2022-07-10 12:41 | Outpatient (CLI) | payer OTHER, SELFPAY ==
[2022-07-10 13:26] LABS: Basophils % 0.9 %; Eosinophils # 0.1 10^3/uL (0.0-0.8); Hemoglobin 11.6 g/dL (11.5-15.3); Lymphocytes # 1.5 10^3/uL (0.8-4.8); Lymphocytes % 32.7 %; Mean Corpuscular HGB Conc 33.1 g/dL (30.0-36.0); Mean Corpuscular Hemoglobin 32.8 pg (28.0-34.0); Mean Corpuscular Volume 98.9 fl (81-99); Mean Platelet Volume 10.9 fL (7.4-10.4); Monocytes # 0.7 10^3/uL (0.2-0.9); Monocytes % 14.4 %; Neutrophils # 2.25 10^3/uL (1.8-7.7); Neutrophils % 49.8 %; Nucleated Red Blood Cells % 0 %; Platelet Count 84 10^3/cmm (130-400); Red Blood Count 3.54 10^6/uL (4.1-5.3); Red Cell Distribution Width 13.7 % (12.1-15.1); White Blood Count 4.5 10^3/uL (4.0-10.0)
[2022-07-10 13:47] LABS: Alanine Aminotransferase 22 U/L (0-33); Albumin Level 2.9 g/dL (3.5-5.2); Alkaline Phosphatase 126 U/L (35-105); Anion Gap 14.9 (5-19); Aspartate Amino Transferase 36 U/L (0-32); Blood Urea Nitrogen 11 mg/dL (8-23); Calcium 8.8 mg/dL (8.5-10.5); Carbon Dioxide 24 mmol/L (22-29); Chloride 97 mmol/L (98-107); Globulin 5.6 g/dL (1.3-4.6); Glomerular Filtration Rate 162.3 mL/min (90-130); Glucose 208 mg/dL (65-115); Osmolality Calculated 279 mOsm/kg (285-295); Potassium 3.9 mmol/L (3.5-5.1); Sodium 132 mmol/L (136-145); Total Protein 8.5 g/dL (6.6-8.7)
== END 2022-07-10 12:42 | disposition home or self-care (01) ==
PROVIDERS: PCP Student in an Organized Health Care Education/Training Program; Visit Provider Student in an Organized Health Care Education/Training Program
DX: L03.012 Cellulitis of left finger (principal)
CPT/HCPCS: 80053; 85025

== ENCOUNTER 2022-07-15 19:57 | Outpatient (CLI) | payer OTHER, SELFPAY ==
[2022-07-15 20:35] LABS: Alanine Aminotransferase 18 U/L (0-33); Albumin Level 3.1 g/dL (3.5-5.2); Alkaline Phosphatase 120 U/L (35-105); Anion Gap 11.6 (5-19); Aspartate Amino Transferase 33 U/L (0-32); Blood Urea Nitrogen 10 mg/dL (8-23); Carbon Dioxide 25 mmol/L (22-29); Chloride 98 mmol/L (98-107); Globulin 4.6 g/dL (1.3-4.6); Glomerular Filtration Rate 125.4 mL/min (90-130); Glucose 133 mg/dL (65-115); Osmolality Calculated 273 mOsm/kg (285-295); Potassium 3.6 mmol/L (3.5-5.1); Sodium 131 mmol/L (136-145); Total Bilirubin 0.9 mg/dL (0.15-1.2); Total Protein 7.7 g/dL (6.6-8.7)
== END 2022-07-15 19:58 | disposition home or self-care (01) ==
PROVIDERS: PCP Student in an Organized Health Care Education/Training Program; Visit Provider Student in an Organized Health Care Education/Training Program
DX: L03.012 Cellulitis of left finger (principal)
CPT/HCPCS: 80053

== ENCOUNTER → 2022-07-25 10:53 | Outpatient (BNVA) | payer OTHER, SELFPAY | PROVIDERS: PCP Family Medicine Adult Medicine; Referring Provider Internal Medicine; Visit Provider Student in an Organized Health Care Education/Training Program | DX: L08.9 Local infection of the skin and subcutaneous tissue, unspecified (principal) | CPT/HCPCS: 73120 ==

== ENCOUNTER 2022-08-09 12:15 | Outpatient (CLI) | payer OTHER, SELFPAY ==
--- NOTE | 2022-08-09 12:15 | US_ITS ---
WS: [id number] THYROID ULTRASOUND HISTORY: thyroid nodule on exam COMPARISON: None available. Right lobe: 1.7 cm x 1.4 cm x 4.1 cm (w x ap x l). Volume: 4.9 cm3. Normal size and echotexture. No significant are dominant nodules are present. Left lobe: 1.1 cm x 1.4 cm x 3.7 cm (w x ap x l). Volume: 2.8 cm3. Normal size and echotexture. No significant or dominant nodules are present. Isthmus: 0.5 cm. US/US thyroid 27200 IMPRESSION: Normal thyroid ultrasound.
== END 2022-08-09 12:16 | disposition home or self-care (01) ==
PROVIDERS: PCP Family Medicine Adult Medicine; Visit Provider Family Medicine Adult Medicine
DX: E04.1 Nontoxic single thyroid nodule (principal)
CPT/HCPCS: 76536

== ENCOUNTER 2025-05-09 06:27 | Inpatient (IN) | payer OTHER, SELFPAY ==
[2025-05-09] VITALS (33 sets, daily range): BP systolic 112–177; BP diastolic 33–82; PULSE 88–109; RESP 17–28; TEMP 36.3–36.9; O2SAT 87–98; BMI 35.2
--- OUTSIDE RECORDS SUMMARY | 2025-05-09 06:33 | XMS_ITS | Encounter Summary ---
Author Organization [facility] Address [address] [place] [address] Care Team Providers Care Executive Talent Acquisition Consultant Name Role Phone Unavailable Primary Care Provider Unavailabl e Encounter Details Date Type Department Care Team (Latest Contact Info) Description 02/25/2006 [facility] [address] [place] [phone] Harris Gomez MD NO ADDRESS ON FILE Contact Dermatitis and Other Eczema, due to Unspecified Cause (Primary Dx) Social History Tobacco Use Types Packs/Day Years Used Date Smoking Tobacco: Never Assessed Comments Unknown Sex and Gender Information Value Date Recorded Sex Assigned at Not on file 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
--- OUTSIDE RECORDS SUMMARY | 2025-05-09 06:33 | XMS_ITS | Encounter Summary ---
Author Organization [facility] Address [address] [place] [address] Care Team Providers Care Senior Technical Support Engineer Name Role Phone Unavailable Primary Care Provider Unavailabl e Encounter Details Date Type Department Care Team (Latest Contact Info) Description 02/08/2005 Outpatient Historical [facility] [address] [place] [phone] Eliseo Casillas MD [address] [place] [phone] LUMBAGO (Primary Dx) Social History Tobacco Use Types Packs/Day Years Used Date Smoking Tobacco: Never Assessed Comments Unknown Sex and Gender Information Value Date Recorded Sex Assigned at Not on file 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
--- OUTSIDE RECORDS SUMMARY | 2025-05-09 06:33 | XMS_ITS | Clinical Summary ---
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
--- OUTSIDE RECORDS SUMMARY | 2025-05-09 06:33 | XMS_ITS | Encounter Summary ---
Author Organization [facility] Address [address] [place] [address] Care Team Providers Care Fruit Buying Grader Name Role Phone Unavailable Primary Care Provider Unavailabl e Encounter Details Date Type Department Care Team (Latest Contact Info) Description 05/27/2006 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
--- OUTSIDE RECORDS SUMMARY | 2025-05-09 06:33 | XMS_ITS | Encounter Summary ---
Author Organization [facility] Address [address] [place] [address] Care Team Providers Care Wool Hat Sanding Machine Operator Name Role Phone Unavailable Primary Care Provider Unavailabl e Encounter Details Date Type Department Care Team (Late st Contact Info) Description 05/27/2006 Outpatient Historical 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
--- NOTE | 2025-05-09 06:34 | XRR_ITS ---
PROCEDURE INFORMATION: Exam: XR Chest Exam date and time: 05/09/2025 6:35 AM Age: 64 years old Clinical indication: Pain; Chest pressure; Additional info: Shortness of breath TECHNIQUE: Imaging protocol: Radiologic exam of the chest. Views: 1 view. COMPARISON: CR XR chest 1V portable [id number] 06/24/2022 8:27 AM FINDINGS: Lungs: Mid to lower right lung is obscured. Lung volumes are reduced. Some prominence of the interstitial markings bilaterally. Pleural spaces: Large right pleural effusion. At least small left pleural effusion. Negative for pneumothorax. Heart/Mediastinum: Unremarkable. No cardiomegaly. Bones/joints: Unremarkable. XR/XR chest 1V portable [id number] IMPRESSION: Large right pleural effusion.
--- NOTE | 2025-05-09 06:36 | ED_ITS ---
HPI - Weakness 2 General: Chief complaint: Weakness Stated complaint: WEAKNESS Time Seen by Provider: 05/09/25 06:28 History of Present Illness: This is a 64-year-old female with a history of diabetes and hypertension who says she is not taking any medications and is very vague about why and a history of strep group A bacteremia that was treated in 2022 who presents to the emergency room with worsening swelling and shortness of breath. This has been going on for some time. She is also vague about this. She says she finally came in today because the swelling just became too much. She has extensive swelling in her left hand. She says she feels swelling in her right breast more than her left. She has swelling in her legs that is equal bilaterally. No fevers. No altered mental status. She is hypoxemic on presentation is requiring 6 L nasal cannula. She says she does drink daily but she says only 2- 3 white claws or maybe some wine but she says she does not drink heavily. Related Data Home Medications ?Medication ?Instructions ?Recorded ?Confirmed calcium carbonate 500 - 1,000 mg PO BID PRN St omach 05/09/25 05/09/25 Upset [id number] ac 400 1 tab PO DAILY 05/09/2507/03 mcg-calcium carb 500 mg-vit K1 20 mcg tablet Allergies Allergy/AdvReac Type Severity Reaction Status Date / Time amoxicillin Allergy ALGY-Difficulty Verified 08/09/22 13:24 Breathing Penicillins Allergy ALGY-Difficulty Verified 08/09/22 13:24 Breathing Review of Systems 2 Narrative: Constitutional symptoms: Negative except as documented in HPI. Skin symptoms: Negative except as documented in HPI. Eye symptoms: Negative except as documented in HPI. ENMT symptoms: Negative except as documented in HPI. Respiratory symptoms: Negative except as documented in HPI. Cardiovascular symptoms: Negative except as documented in HPI. Gastrointestinal symptoms: Negative except as documented in HPI. Genitourinary symptoms: Negative except as documented in HPI. Musculoskeletal symptoms: Negative except as documented in HPI. Neurologic symptoms: Negative except as documented in HPI. Psychiatric symptoms: Negative except as documented in HPI. Endocrine symptoms: Negative except as documented in HPI. PFSH ED 2 PFSH: Medical History (Updated 05/09/25 @ 11:10 by Mattie Daily MD) [place] [facility] acquired pneumonia Hypertension Thyroid nodule greater than or equal to 1.5 cm in diameter incidentally noted on imaging study cystic on 08/09/22 thyroid US Anxiety Diabetes type 2, uncontrolled DIC (disseminated intravascular coagulation) Ketoacidosis Lactic acidosis Metabolic encephalopathy Thrombocytopenia Sepsis Physical Exam 2 Narrative: EXAM NARRATIVE: General: Alert, no acute distress. Skin: Warm, dry. Head: Normocephalic, atraumatic. Neck: Supple, trachea midline. Eye: Extraocular movements are intact. Ears, nose, mouth and throat: mucosa moist. Cardiovascular: Regular, tachycardic, normal peripheral perfusion. Extensive edema. 2+ pitting edema of the legs. 3+ edema of the left hand with weeping. Edema of the right arm as well. Respiratory: Diminished breath sounds on the right. Mild tachypnea. Mild increased work of breathing. No wheeze. Gastrointestinal: Soft, Nontender, Non distended Musculoskeletal: Normal ROM, no deformity. Neurological: Alert and oriented, No focal neurological deficit observed. Psychiatric: Cooperative, appropriate mood & affect. Course 2 Vital Signs: Vital signs: Vital Signs Temperature 97.8 F 05/09/25 11:48 Pulse Rate 107 H 05/09/25 11:48 Respiratory Rate 26 H 05/09/25 11:48 Blood Pressure 133/73 05/09/25 11:48 Pulse Oximetry 93 05/09/25 11:48 Oxygen Delivery Me thod Oxymask 05/09/25 11:20 Oxygen Flow Rate 9 05/09/25 11:20 MDM - Weakness Medical Decision Making Medical decision making Patient's reason for coming to the emergency room: Edema. Weeping edema of the left hand. Social determinants: Retired, I reviewed the patient's medical record. This is a 64-year-old female with a history of diabetes and hypertension who says she is not taking any medications and is very vague about why and a history of strep group A bacteremia that was treated in 2022 I reviewed the patient's current home meds Patient says she is not taking any medications currently. She has chosen not to Alternate historians: Her also gives me some history. Differential diagnosis including but not limited to and based on the above HPI, review of systems and physical exam: for patient with edema: Congestive heart failure. Kidney failure. DVT / Pulmonary embolism. Protein malnutrition. Cirrhosis. Orders placed to evaluate differential diagnosis based on the above differential, HPI and physical exam Chest x-ray: Large right pleural effusion. This was reviewed and interpreted by myself the emergency room physician. I also reviewed the radiology report. EKG: Time 9:55 AM. Rate 104. Sinus tachycardia, nonspecific ST changes, no ectopy, normal CT & QRS intervals, This was reviewed and interpreted by myself the ER physician at 10:01 AM CTA chest abdomen pelvis: No evidence of pulmonary embolus. Moderate right and small left pleural effusion. Patchy infiltrates in the left greater than right upper lobes which might be a pneumonia. Cirrhotic liver with portal venous hypertension and portosystemic collaterals with varicosities. Diffuse body wall anasarca. This was reviewed and interpreted by myself the emergency room physician. I also reviewed the radiology report. Lab Review: Laboratory results were reviewed and interpreted by myself the emergency room physician. Mild leukocytosis with white count 9.5. Anemia with a hemoglobin of 6.4. Mildly microcytic with an MCV of 75. Thrombocytopenia. Mild hyperbilirubinemia with minimal elevation in LFTs. This points to cirrhosis. Coagulopathy. Serial cardiac markers slightly elevated but unchanged.. Assessment of risk: Level of risk: High risk patient. New onset cirrhosis. Sick. Being admitted to the ICU Hospitalization considerations: Being admitted to the ICU Reexamination: Patient continues to have a fairly high level of oxygen requirements. Work of breathing has improved at times. Blood pressure has been high not low. I spoke at length with the patient about her drinking habits. She says she only drinks 2-3 drinks per day. Consultation: I spoke with Dr. Bowen who is on-call for the hospital service who agrees to admission. Assessment and plan: Anemia Hypoxemic respiratory failure Edema Cirrhosis Thrombocytopenia Hypoxemia Pneumonia Possible sepsis Ascites Medical noncompliance ?New diagnosis cirrhosis with anasarca ascites and pleural effusions. I have ordered some Lasix. Ultrasound-guided thoracentesis. - 50 mL fluid given. Patient is receiving blood and antibiotics and is already fluid overloaded. -Broad-spectrum antibiotics were administered. Zyvox and meropenem -Sepsis quality measures. -Lactic acid with a reflex was ordered. -Blood cultures were ordered. ?I reevaluated the patient's volume status after sepsis fluids were given. -I discussed the patient with the hospitalist on-call who is admitting the patient. - Discussed findings and plan with patient. Answered any questions. - All laboratory values were reviewed and interpreted personally by myself, the ER physician - All imaging was reviewed and interpreted personally by myself, the ER physician. - Evaluation and treatment of this problem were appropriate in the emergency setting Critical Care: -I spent a total of 61 minutes of critical care time managing the patient, independent of any other practitioner. -The time involved in the performance of separately reportable procedures was not counted towards critical care time. Lab Data 05/09/25 06:59 05/09/25 06:59 Radiology Impressions Chest X-Ray 05/09/25 06:34 IMPRESSION: Large right pleural effusion. Chest/Abdomen/Pelvis CT 05/09/25 07:56 IMPRESSION: 1. No evidence of pulmonary embolus. 2. Moderate RIGHT and small LEFT pleural effusions. 3. Patchy infiltrates in the LEFT greater than RIGHT upper lobes. 4. Cirrhotic liver with evidence of portal venous hypertension and portosystemic collaterals with varicosities. 5. Diffuse body wall anasarca. 6. Calcified gallstones. 7. Moderate abdominal and pelvic ascites. Laboratory Results WBC 9.52 10^3/uL (3.29-11.43) 05/09/25 06:59 RBC 3.00 10^6/uL (3.85-5.65) L 05/09/25 06:59 Hgb 6.40 g/dL (11.27-16.99) L* 05/09/25 06:59 Hct 22.5 % (36-47) L 05/09/25 06:59 MCV 75.0 fl (85-98) L 05/09/25 06:59 MCH 21.3 pg (27-33) L 05/09/25 06:59 MCHC 28.4 g/dL (30-55) L 05/09/25 06:59 RDW 27.5 % (12.1-15.1) H 05/09/25 06:59 Plt Count 87 10^3/cmm (157-399) L 05/09/25 06:59 MPV Not Reportable 05/09/25 06:59 Neut % (Auto) 76.8 % 05/09/25 06:59 Lymph % (Auto) 10.5 % 05/09/25 06:59 Kendall % (Auto) 10.2 % 05/09/25 06:59 Eos % (Auto) 1.7 % 05/09/25 06:59 Baso % (Auto) 0.3 % 05/09/25 06:59 Neut # (Auto) 7.31 10^3/uL (1.8-7.7) 05/09/25 06:59 Lymph # (Auto) 1.0 10^3/uL (0.8-4.8) 05/09/25 06:59 Kendall # (Auto) 1.0 10^3/uL (0.2-0.9) H 05/09/25 06:59 Eos # (Auto) 0.2 10^3/uL (0.0-0.8) 05/09/25 06:59 Baso # (Auto) 0.0 10^3/uL (0.0-0.1) 05/09/25 06:59 Nucleated RBC % (auto) 0 % 05/09/25 06:59 Nucleated RBCs # 0.0 /100WBC 05/09/25 06:59 PT 33.40 SECONDS (12.1-14.9) H 05/09/25 06:59 INR 3.07 (0.8-1.2) H 05/09/25 06:59 APTT 45.6 SECONDS (23.9-36.7) H 05/09/25 06:59 Specimen Type Arterial 05/09/25 06:41 Sample Site Radial, right 05/09/25 06:41 ABG pH 7.47 (7.35-7.45) H 05/09/25 06:41 ABG pCO2 35.4 mmHg (35-45) 05/09/25 06:41 ABG pO2 83.4 mmHg (80.0-100.0) 05/09/25 06:41 ABG HCO3 25.4 mmol/L (22-26) 05/09/25 06:41 ABG O2 Saturation 97.0 05/09/25 06:41 ABG Base Excess 1.5 mmol/L (-2.0-2.0) 05/09/25 06:41 Joshua Test Pos 05/09/25 06:41 A-a O2 Gradient 3.0 mmHg (5-10) L 05/09/25 06:41 Hematocrit 19.5 % (37-47) L 05/09/25 06:41 Hgb O2 Saturation 93.7 % (95-100) L 05/09/25 06:41 Carboxyhemoglobin 2.3 %THgb (0.4-20.1) 05/09/25 06:41 Methemoglobin 1.1 % (0.4-1.5) 05/09/25 06:41 Total Hemoglobin 6.4 g/dL (12-16) L 05/09/25 06:41 Sodium 134.0 mmol/L (131-143) 05/09/25 06:41 Potassium 3.5 mmol/L (3.5-5.0) 05/09/25 06:41 Glucose 114.0 mg/dL (70-115) 05/09/25 06:41 Ionized Calcium 1.1 mmol/L (1.1-1.4) 05/09/25 06:41 O2 Delivery Device Oxy mask 05/09/25 06:41 O2 Liters/Min 7.0 % 05/09/25 06:41 Beam Department Supervisor ID [email or web address] 05/09/25 06:41 Sodium 134 mmol/L (136-145) L 05/09/25 06:59 Potassium 3.7 mmol/L (3.5-5.1) 05/09/25 06:59 Chloride 99 mmol/L (98-107) 05/09/25 06:59 Carbon Dioxide 23 mmol/L (22-29) 05/09/25 06:59 Anion Gap 15.7 (5-19) 05/09/25 06:59 BUN 12 mg/dL (8-23) 05/09/25 06:59 Creatinine 0.6 mg/dL (0.5-0.9) 05/09/25 06:59 GFR Calculation 100.6 mL/min (90-130) 05/09/25 06:59 Glucose 115 mg/dL (65-115) 05/09/25 06:59 Calculated Osmolality 279 mOsm/kg (285-295) L 05/09/25 06:59 Lactic Acid 2.9 mmol/L (0.5-2.2) H 05/09/25 06:59 Lactic Acid (Sepsis) 2.8 mmol/L (0.5-2.2) H 05/09/25 10:08 Calcium 7.8 mg/dL (8.5-10.5) L 05/09/25 06:59 Total Bilirubin 3.6 mg/dL (0.15-1.2) H 05/09/25 06:59 AST 60 U/L (0-32) H 05/09/25 06:59 ALT 32 U/L (0-33) 05/09/25 06:59 Alkaline Phosphatase 116 U/L (35-105) H 05/09/25 06:59 Troponin T Baseline 25 ng/L (0-10) H 05/09/25 06:59 Troponin T 120 Minute 26.48 ng/L (0-10) H 05/09/25 08:50 Delta Troponin T 1.48 ABS# (0-10) 05/09/25 08:50 C-Reactive Protein 7.5 mg/L (0.0-4.9) H 05/09/25 06:59 NT-Pro-B Natriuret Pep 474 pg/mL (0-125) H 05/09/25 06:59 Total Protein 5.8 g/dL (6.6-8.7) L 05/09/25 06:59 Albumin 2.5 g/dL (3.5-5.2) L 05/09/25 06:59 Globulin 3.3 g/dL (1.3-4.6) 05/09/25 06:59 Procalcitonin 0.20 ng/mL (0-0.5) 05/09/25 06:59 Urine Color Dark yellow (Yellow) A 05/09/25 09:00 Urine Appearance Clear (CLEAR) 05/09/25 09:00 Urine pH 5.5 (5-7) 05/09/25 09:00 Ur Specific [place] 1.012 (1.005-1.030) 05/09/25 09:00 Urine Protein Negative (Negative) 05/09/25 09:00 Urine Glucose (UA) Negative (Normal) 05/09/25 09:00 Urine Ketones Trace (Negative) 05/09/25 09:00 Urine Blood Negative (Negative) 05/09/25 09:00 Urine Nitrate Negative (Negative) 05/09/25 09:00 Urine Bilirubin Negative (Negative) 05/09/25 09:00 Urine Urobilinogen 1.0 mg/dL (Negative) 05/09/25 09:00 Ur Leukocyte Esterase Negative (Negative) 05/09/25 09:00 Urine RBC 3-5 /hpf (0-2) 05/09/25 09:00 Urine WBC 0-5 /hpf (0-5) 05/09/25 09:00 Ur Squamous Epith Cells 0-5 /hpf (0-5) 05/09/25 09:00 Amorphous Sediment Not Reportable 05/09/25 09:00 Urine Bacteria None seen /hpf (NONE) 05/09/25 09:00 Hyaline Casts 3.30 /lpf 05/09/25 09:00 Influenza A (PCR) Negative (Negative) 05/09/25 08:45 Influenza Type B (PCR) Negative (Negative) 05/09/25 08:45 RSV (PCR) Negative (Negative) 05/09/25 08:45 SARS-CoV-2 (PCR) Negative (Negative) 05/09/25 08:45 Blood Type O Positive 05/09/25 08:50 Rho(D) Type Rh positive 05/09/25 08:50 Antibody Screen Negative 05/09/25 08:50 Crossmatch See Detail 05/09/25 08:50 All radiology interpretation(s) finalized by discharge Discharge Plan Discharge Patient Disposition: Admitted As Inpatient Admit Provider: Joseph Bowen Clinical Impression: Acute hypoxemic respiratory failure Condition: Stable Coding Level of Care Code ED Marketing Administrative Assistant for Briana Qureshi
[2025-05-09 06:51] LABS: ABG PCO2 35.4 mmHg (35-45); ABG PH Result 7.47 (7.35-7.45); Alveolar-Arterial Oxygen Gradi 3.0 mmHg (5-10); Arterial Blood Gas Hematocrit 19.5 % (37-47); Blood Gas Allen Test Pos; Blood Gas LPM 7.0 %; Blood Gas Sample Site Radial, right; Blood Gas Sample Type Arterial; Carboxyhemoglobin 2.3 %THgb (0.4-20.1); Glucose Level-ABG 114.0 mg/dL (70-115); HCO3 ABG 25.4 mmol/L (22-26); Ionized Calcium Level - ABG 1.1 mmol/L (1.1-1.4); Methemoglobin 1.1 % (0.4-1.5); Oxygen Saturation ABG 97.0; PO2 ABG 83.4 mmHg (80.0-100.0); Potassium Level - ABG 3.5 mmol/L (3.5-5.0); Sodium Level - ABG 134.0 mmol/L (131-143)
[2025-05-09 07:15] LABS: Hematocrit 22.5 % (36-47); Mean Corpuscular HGB Conc 28.4 g/dL (30-55); Mean Corpuscular Hemoglobin 21.3 pg (27-33); Mean Corpuscular Volume 75.0 fl (85-98); Nucleated Red Blood Cells % 0 %; Platelet Count 87 10^3/cmm (157-399); Red Blood Count 3.00 10^6/uL (3.85-5.65); White Blood Count 9.52 10^3/uL (3.29-11.43)
[2025-05-09 07:28] LABS: Hemoglobin 6.40 g/dL (11.27-16.99)
[2025-05-09 07:29] LABS: INR 3.07 (0.8-1.2); Prothrombin Time 33.40 SECONDS (12.1-14.9)
[2025-05-09 07:30] LABS: Partial Thromboplastin Time 45.6 SECONDS (23.9-36.7)
[2025-05-09 07:35] LABS: Lactic Sepsis W/Reflex 2.9 mmol/L (0.5-2.2); Troponin(5th) Baseline 25 ng/L (0-10)
[2025-05-09 07:42] LABS: NT Pro B Type Natriuretic Pept 474 pg/mL (0-125); Procalcitonin 0.20 ng/mL (0-0.5)
[2025-05-09 07:53] LABS: Alanine Aminotransferase 32 U/L (0-33); Albumin Level 2.5 g/dL (3.5-5.2); Alkaline Phosphatase 116 U/L (35-105); Anion Gap 15.7 (5-19); Aspartate Amino Transferase 60 U/L (0-32); Blood Urea Nitrogen 12 mg/dL (8-23); Carbon Dioxide 23 mmol/L (22-29); Chloride 99 mmol/L (98-107); Globulin 3.3 g/dL (1.3-4.6); Glucose 115 mg/dL (65-115); Osmolality Calculated 279 mOsm/kg (285-295); Potassium 3.7 mmol/L (3.5-5.1); Sodium 134 mmol/L (136-145); Total Protein 5.8 g/dL (6.6-8.7)
--- NOTE | 2025-05-09 07:56 | CT_ITS ---
WS: [id number] CTA CHEST FOLLOWED BY ABDOMEN AND PELVIS TECHNIQUE: Noncontrast plus contrast enhanced CTA of the chest, with abdomen, and pelvis with coronal and sagittal reformatted images and additional MIP Images. CLINICAL INFORMATION: hypoxemia, tachycardia COMPARISON: 2022 DLP: 1481.[address] scans at [facility] use at least one of these dose optimization techniques: automated exposure control; mA and/or kV adjustment per patient size (includes targeted exams where dose is matched to clinical indication); or iterative reconstruction. FINDINGS: Large RIGHT and small LEFT pleural effusions. Compressive atelectasis in the lung bases. Compressive atelectasis RIGHT middle lobe and RIGHT lower lobe. Patchy opacities in the LEFT greater than RIGHT upper lobes. Cardiomegaly. Proximal main pulmonary arteries are normal. Normal segmental and subsegmental pulmonary arteries. No evidence of pulmonary embolus. Diffuse body wall anasarca. Hypertrophic changes thoracic spine. Cirrhotic liver. Diffuse body wall anasarca. Evidence of portal venous hypertension with varicosities and portosystemic collaterals. Abdominal wall varicosities and collaterals. Large gallstones unchanged from previous with gallbladder contraction. Small esophageal hiatal hernia. Splenic artery calcifi cation. Adrenal glands are normal. No hydronephrosis. Perihepatic ascites. Moderate abdominal and pelvic ascites. Felix catheter. Sigmoid diverticulosis. Mild central canal stenosis at T12-L1 and L1-L2 with disc osteophyte complexes. CT/CT angio chest w abd pel w con IMPRESSION: 1. No evidence of pulmonary embolus. 2. Moderate RIGHT and small LEFT pleural effusions. 3. Patchy infiltrates in the LEFT greater than RIGHT upper lobes. 4. Cirrhotic liver with evidence of portal venous hypertension and portosystem ic collaterals with varicosities. 5. Diffuse body wall anasarca. 6. Calcified gallstones. 7. Moderate abdominal and pelvic ascites.
[2025-05-09 08:05] LABS: Calcium 7.8 mg/dL (8.5-10.5)
[2025-05-09 08:56] LABS: Reflex Lactate Order REFLEX LACTIC ORDERD
[2025-05-09] MEDS: iohexol 350 mg/mL 500 mL Btl (per mL) IV (09:40)
[2025-05-09 09:41] LABS: Respiratory Syncytial Virus Ce NEGATIVE (Negative); SARS-CoV-2 PCR NEGATIVE (Negative)
[2025-05-09 09:46] LABS: Glucose Urine UA Negative (Normal); Nitrate Urine Negative (Negative); Specific Gravity, Urine 1.012 (1.005-1.030)
--- NOTE | 2025-05-09 09:55 | ECG_ITS ---
[facility] Test Date: 2025-05-09 Pat Name: Silvia Mcneal Department: Room: Gender: Female Line Up Examiner: : 1960 Requested By: Mattie Nieves Order Number: [id number] Slim MD: Cale Panda M.D. Measurements Intervals [place] Rate: 104 P: 54 PA: 158 QRS: 59 QRSD: 105 T: 29 QT: 329 QTc: 434 Interpretive Statements SINUS TACHYCARDIA LOW QRS VOLTAGE IN PRECORDIAL LEADS [QRS DEFLECTION < 1.0 mV IN CHEST LEADS] MODERATE ST DEPRESSION [0.05+ mV ST DEPRESSION] Compared to ECG 06/20/2022 11:12:56 Low QRS voltage now present ST (T wave) deviation now present Electronically Signed On 05-10-2025 21:00:50 PRIMER WATERPROOFING MACHINE OPERATOR by Cale Panda M.D. [email or web address]
[2025-05-09 10:40] LABS: Lactic Acid level (Lactate) 2.8 mmol/L (0.5-2.2)
[2025-05-09] MEDS: linezolid premix 600 MG/300 ML PREMIX 300 MG IV (10:59)
[2025-05-09] MEDS: FUROsemide 10 mg/mL SDV 4mL 40 MG IVP ×2 (11:15→17:12)
--- NOTE | 2025-05-09 11:39 | US_ITS ---
WS: [id number] ULTRASOUND-GUIDED THERAPEUTIC AND DIAGNOSTIC PARACENTESIS Procedure, risks, and complications have been explained to the patient. Consent is obtained. Utilizing aseptic technique and 1% buffered lidocaine, a small dermatome was made through which a 5 [place] Yueh catheter was inserted. Approximately 3050 ml of clear peritoneal fluid was obtained without difficulty. No complications encountered. US/US paracentesis abd w [id number] IMPRESSION: Uncomplicated paracentesis yielding 3050 ml of peritoneal fluid.
--- NOTE | 2025-05-09 12:26 | P.HP_ITS ---
Providers/Chief Complaint 2 Admitting Physician: Joseph Bowen Chief Complaint: WEAKNESS History of Present Illness Silvia Mcneal is a 64 year old woman with a history of type 2 diabetes mellitus and hypertension, presenting to the emergency department with weakness, worsening generalized swelling, and shortness of breath. Reports daily alcohol intake. On arrival, noted to be very edematous with ascites and low oxygen levels requiring supplemental oxygen. Denies hematemesis, melena, or black stools. She has not had prior endoscopy or colonoscopy. Denies history of hepatitis. Reports diarrhea occurring usually once daily. Denies rashes. She was informed of newly identified liver cirrhosis and associated fluid accumulation (ascites and pleural effusions), contributing to fatigue and dyspnea. Anemia was discussed; she is receiving blood transfusion in the emergency department. Code status discussed; she is agreeable to attempts at cardiopulmonary resuscitation (CPR) if needed. Review of Systems 2 Const: Denies: fever(s), chills, body aches or malaise ENMT: Denies: throat pain Card: Reports: edema, swelling of feet/ankles and dyspnea on exertion; Denies: chest pain or pre-syncope Resp: Reports: dyspnea; Denies: productive cough, change in phlegm color or hemoptysis GI: Reports: diarrhea (Intermittent, once daily); Denies: abdominal pain, nausea, vomiting, constipation, hematochezia or melena : Denies: flank pain, urinary frequency or hematuria Musc: Denies: back pain, joint swelling or joint redness Skin/Breast: Denies: rash or new lesions Neuro: Denies: headache(s) or confusion Medications/Allergies Home Medications ?Medication ?Instructions ?Recorded ?Confirmed ?Last Taken ?Type calcium carbonate 500 - 1,000 mg PO BID PRN St omach 05/09/25 05/09/25 05/08/25 History Upset jecpoozs-pew-dmjvj ac 400 1 tab PO DAILY 05/09/2507/0305/07/25 History mcg-calcium carb 500 mg-vit K1 20 mcg tablet Allergies Allergy/AdvReac Type Severity Reaction Status Date / Time amoxicillin Allergy ALGY-Difficulty Verified 08/09/22 13:24 Breathing Penicillins Allergy ALGY-Difficulty Verified 08/09/22 13:24 Breathing PFSH Acute 2 PFSH: Medical History Paronychia Community acquired pneumonia Hypertension Thyroid nodule greater than or equal to 1.5 cm in diameter incidentally noted on imaging study cystic on 08/09/22 thyroid US Anxiety Diabetes type 2, uncontrolled DIC (disseminated intravascular coagulation) Ketoacidosis Lactic acidosis Metabolic encephalopathy Thrombocytopenia Sepsis Social History (Updated 05/09/25 @ 12:46 by Joseph Bowen MD) Smoking and tobacco/nicotine status: never used tobacco/nicotine Alcohol intake: current Substance/Drug Use: never Household members: spouse Marital status: Vitals/I&O/Wt Last Vital Signs Temp 97.8 F 05/09/25 11:48 Pulse 107 H 05/09/25 11:48 Resp 26 H 05/09/25 11:48 BP 133/73 05/09/25 11:48 Pulse Ox 93 05/09/25 11:48 O2 Del Method Oxymask 05/09/25 11:20 O2 Flow Rate 9 05/09/25 11:20 05/08/25 05/09/25 05/09/25 22:59 06:59 14:59 Intake Total 50 / 50 Balance 50 / 50 Weight last 48 hrs Weight 103.873 kg Physical Exam 2 Const: COMMON NORMALS: patient oriented x3 and alert GENERAL APPEARANCE: c ooperative ORIENTATION/CONSCIOUSNESS: Yes awake HENMT: COMMON NORMALS: oropharynx normal Neck/C-Spine: COMMON NORMALS: no JVD Resp: COMMON NORMALS: normal respiratory effort and clear to auscultation bilaterally AUSCULTATION: clear to auscultation bilaterally Cardio: COMMON NORMALS: no JVD, regular rhythm, S1 normal heart sound present, S2 normal heart sound present and No murmurs present (Cardio) RHYTHM: regular rhythm HEART SOUNDS: S1 normal heart sound present and S2 normal heart sound present GI: COMMON NORMALS: Normal to inspection, nondistended, normoactive bowel sounds present, Soft to palpation and non-tender PALPATION: Yes Soft to palpation Extremity: COMMON NORMALS: no joint enlargement and no pedal edema Neuro: COMMON NORMALS: patient oriented x3 and moves all extremities S ENSORIUM/ORIENTATION: Yes alert Skin: COMMON NORMALS: no rashes or lesions noted GENERAL SKIN EXAM: no rashes or lesions noted Urinary Catheter Management: Felix: Cath Placed During This Visit: yes Urinary Catheter Date of Insertion: 05/09/25 Urinary Catheter Time of Insertion: 09:30 Data 05/09/25 06:59 05/09/25 06:59 Micro: Microbiology 05/09/25 07:04 Blood Culture - Preliminary Blood SPECIMEN COLLECTED 05/09/25 06:59 Blood Culture - Preliminary Blood SPECIMEN COLLECTED A&P Assessment and plan 1. Acute respiratory failure with hypoxia: Dyspnea associated with pleural effusions and fluid overload. With community- acquired pneumonia, with anasarca, pleural effusion, tense ascites. Reviewed vitals, CBC, INR, ABG, CMP, troponin, NT proBNP, CRP, procalcitonin, UA, viral swab, chest x-ray, CT chest abdomen pelvis, EKG, ED provider, discussed with the provider. - Requesting paracentesis. - Continue oxygen support as needed. - Continue antibiotics for suspected pneumonia. - Sputum culture 2. Decompensated hepatic cirrhosis: Decompensated liver cirrhosis with anasarca, tense ascites, INR reviewed, 3.07, with noted thrombocytopenia platelets 87. Cirrhotic appearance of the liver and signs of portal hypertension on CT. She and her have not been aware of her having cirrhosis. Extensive discussion with patient and regarding liver cirrhosis, risk of complications, chronicity of condition and need for chronic follow-up. Received a dose of Lasix in ED. Obtain paracentesis. Continue diuresis with Lasix and spironolactone. Monitor for risk of hypotension. Electrolyte deficiency. Recheck chemistry. Discussed: Newly identified decompensated cirrhosis with associated complications discussed in detail. - Avoid alcohol entirely. - Avoid nonsteroidal anti-inflammatory drugs (NSAIDs). - Avoid raw shellfish (e.g., oysters; no raw fish/sushi). - Arrange close outpatient follow-up after discharge with primary care and hepatology specialist. At some point would benefit from EGD as well. - Plan for follow-up with PCP to arrange yearly liver ultrasound after discharge. Follow-up with hepatology. 3. Anasarca: Generalized edema/anasarca : Significant swelling attributed to cirrhosis- related fluid shifts. - Furosemide (Lasix) 40 mg IV given in the emergency department. Continue IV Lasix, spironolactone. - Plan therapeutic fluid removal/paracentesis 4. Ascites: Tense ascites. Paracentesis requested. Requested fluid analysis and Gram stain and culture. With generalized weakness, assess for possible SBP. Empiric antibiotic coverage for now with community-acquired pneumonia. 5. Community acquired pneumonia: Respiratory failure with hypoxia, with noted pulmonary infiltrates as above. Blood cultures been obtained in ED. Obtain sputum culture, urine bacterial insurance. 6. Acute anemia: Low hemoglobin; chronic low-level blood loss suspected; patient denies overt gastrointestinal bleeding. - Transfuse blood (initiated in the emergency department). - Start acid-inderjit medication due to concern for possible chronic gastrointestinal blood loss. - Follow up hemoglobin/blood counts. - At some point will benefit from EGD Plan: Pleural effusions : Imaging shows large right and small left pleural effusions. - Diuresis. Consider thoracentesis for symptomatic relief. - Supportive care with oxygen; monitor respiratory status. EtOH intake: Counseled to discontinue any alcohol intake. Monitor for any withdrawal. Thiamine, folic acid. [facility] protocol. Follow-up : Discharge planning and ongoing care needs discussed. - Arrange referral to hepatology from the hospital at discharge (or via primary care if needed). - Establish primary care for ongoing monitoring of liver disease and routine labs. - Discussed and documented patient is agreeable to CPR if needed (full code). - Check thyroid function tests. PDMP PDMP Reviewed: Not Reviewed Attestations 2 Medical Necessity Statement*: Admission of over 2 midnights anticipated for assessment and management of acute respiratory failure with hypoxia, decompensated new diagnosis of hepatic cirrhosis with anasarca and ascites, acute on chronic anemia, community acquired pneumonia, additional comorbidities. Coding Level of Care Code Critical Care >/= 30 minutes Critical care time (in minutes): 35 The high probability of a clinically significant, sudden or life threatening deterioration, as referenced in this documentation, required my full and direct attention, intervention and personal management. The critical care time shown is in addition to time spent performing any reported separately billable procedures and includes the following: [x] Data and vital sign review and interpretation [x ] Patient assessment, examination and intervention [x] Medication orders and management [x] Patient/Family updates as able [x] Care Coordination and Documentation. Diagnoses Acute respiratory failure with hypoxia J96.01 Decompensated hepatic cirrhosis K72.90; K74.60 Anasarca R60.1 Ascites R18.8 Community acquired pneumonia J18.9 Acute anemia D64.9
--- NOTE | 2025-05-09 12:34 | ECG_ITS ---
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 Measurements Intervals [place] Rate: 99 P: 63 CO: 167 QRS: 64 QRSD: 97 T: 54 QT: 348 QTc: 447 Interpretive Statements SINUS RHYTHM Compared to ECG 05/09/2025 09:55:38 Sinus tachycardia no longer present ST (T wave) deviation no longer present Electronically Signed On 05-10-2025 20:53:57 [employer] by Cale Panda M.D. [email or web address]
[2025-05-09 15:49] LABS: Mononuclear #, Pertinoneal Fl 0.096 10^3/uL; Mononuclear %, Pertinoneal Fl 90.600 %; Polynuclear # Cells, Perit 0.010 10^3/uL; Polynuclear % Cells,Perit 9.400 %; RBC Pertioneal Fluid 0 10^3/uL; WBC Peritoneal Fluid 106 /uL
[2025-05-09 15:57] LABS: Cyto Order Verification No Order
[2025-05-09 16:01] LABS: Appearance, Peritoneal Fluid Hazy (Clear); Color, Peritoneal Fluid Pale Yellow (Pale Yellow); Pathology Referral Yes
[2025-05-09 18:59] LABS: Hematocrit 25.7 % (36-47); Hemoglobin 7.80 g/dL (11.27-16.99)
[2025-05-09 20:04] LABS: Troponin 5 6HR 33.59 ng/L (0-10)
[2025-05-09 20:15] LABS: Troponin 5 6HR Delta 8.59 ng/L (0-12)
[2025-05-09] MEDS: thiamine 100 mg/mL 2mL SDV IM (21:26)
[2025-05-10] VITALS (44 sets, daily range): BP systolic 94–154; BP diastolic 47–77; PULSE 73–114; RESP 17–29; TEMP 36.4–36.6; O2SAT 86–97
[2025-05-10] MEDS: thiamine 100 mg/mL 2mL SDV IM (02:27)
[2025-05-10] MEDS: FUROsemide 10 mg/mL SDV 4mL 40 MG IVP ×2 (04:30→16:19)
--- NOTE | 2025-05-10 04:45 | PC.NURSE ---
Patient states that she does not feel like she can swallow pills due to her mouth being dry. Informed Dr Luevano who said he would pass it along to the dayshift team. Meds held at this time.
[2025-05-10 06:07] LABS: Hematocrit 25.4 % (36-47); Hemoglobin 7.80 g/dL (11.27-16.99); Mean Corpuscular HGB Conc 30.7 g/dL (30-55); Mean Corpuscular Hemoglobin 23.8 pg (27-33); Mean Corpuscular Volume 77.4 fl (85-98); Nucleated Red Blood Cells % 0 %; Platelet Count 68 10^3/cmm (157-399); Red Blood Count 3.28 10^6/uL (3.85-5.65); White Blood Count 11.89 10^3/uL (3.29-11.43)
[2025-05-10 06:19] LABS: Alanine Aminotransferase 33 U/L (0-33); Albumin Level 2.2 g/dL (3.5-5.2); Alkaline Phosphatase 165 U/L (35-105); Anion Gap 12.7 (5-19); Aspartate Amino Transferase 59 U/L (0-32); Blood Urea Nitrogen 14 mg/dL (8-23); Calcium 7.9 mg/dL (8.5-10.5); Carbon Dioxide 28 mmol/L (22-29); Chloride 101 mmol/L (98-107); Globulin 3.0 g/dL (1.3-4.6); Glucose 123 mg/dL (65-115); Osmolality Calculated 288 mOsm/kg (285-295); Potassium 3.7 mmol/L (3.5-5.1); Sodium 138 mmol/L (136-145); Total Protein 5.2 g/dL (6.6-8.7)
--- NOTE | 2025-05-10 11:59 | P.PN_ITS ---
Subjective 2 Subjective: Patient seen and examined, still requiring liters of oxygen, likely needs thoracentesis and diuresis to get fluid off. blood cx growing strep pyogenes. Vitals/I&O/Wt Last Vital Signs Temp 97.8 F 05/10/25 09:00 Pulse 91 05/10/25 09:00 Resp 26 H 05/10/25 09:00 BP 141/55 05/10/25 09:00 Pulse Ox 91 05/10/25 09:00 O2 Del Method High Flow Nasal Cannula 05/10/25 09:00 O2 Flow Rate 8 05/10/25 09:00 05/09/25 05/10/25 05/10/25 22:59 06:59 14:59 Intake Total 830 / 1530 Output Total 950 / 950 Balance 830 / 530 -950 / -950 Weight last 48 hrs Weight 99.092 kg Weight 103.873 kg Physical Exam 2 Const: COMMON NORMALS: patient oriented x3 and alert GENERAL APPEARANCE: c ooperative ORIENTATION/CONSCIOUSNESS: Yes awake HENMT: COMMON NORMALS: oropharynx normal Neck/C-Spine: COMMON NORMALS: no JVD Resp: COMMON NORMALS: normal respiratory effort and clear to auscultation bilaterally AUSCULTATION: clear to auscultation bilaterally Cardio: COMMON NORMALS: no JVD, regular rhythm, S1 normal heart sound present, S2 normal heart sound present and No murmurs present (Cardio) RHYTHM: regular rhythm HEART SOUNDS: S1 normal heart sound present and S2 normal heart sound present GI: COMMON NORMALS: Normal to inspection, nondistended, normoactive bowel sounds present, Soft to palpation and non-tender PALPATION: Yes Soft to palpation Extremity: COMMON NORMALS: no joint enlargement and no pedal edema Neuro: COMMON NORMALS: patient oriented x3 and moves all extremities S ENSORIUM/ORIENTATION: Yes alert Skin: COMMON NORMALS: no rashes or lesions noted GENERAL SKIN EXAM: no rashes or lesions noted Urinary Catheter Management: Felix: Cath Placed During This Visit: yes Reason for Continuing Indwelling Catheter: Accurate Measurement of Urinary Output in Critically Ill Patients Urinary Catheter Date of Insertion: 05/09/25 Urinary Catheter Time of Insertion: 09:30 Data 05/10/25 05:47 05/10/25 05:47 Micro: Microbiology 05/09/25 09:00 Bacterial Antigens - Final Urine,Clean Catch 05/09/25 07:04 Blood Culture - Preliminary Blood NEGATIVE TO DATE 05/09/25 06:59 Blood Culture - Preliminary Blood NEGATIVE TO DATE 05/09/25 09:00 Legionella Urinary Antigen - Final Urine,Clean Catch A&P Assessment and plan 1. Acute respiratory failure with hypoxia: Acute hypoxic respiratory failure dyspnea associated with pleural effusions and fluid overload. With community- acquired pneumonia, with anasarca, pleural effusion, tense ascites. Reviewed vitals, CBC, INR, ABG, CMP, troponin, NT proBNP, CRP, procalcitonin, UA, viral swab, chest x-ray, CT chest abdomen pelvis, EKG, ED provider, discussed with the provider. - S/p paracentesis however still needs thoracentesis - Continue oxygen support as needed. - 2. Decompensated hepatic cirrhosis: Decompensated liver cirrhosis with anasarca, tense ascites, INR reviewed, 3.07, with noted thrombocytopenia platelets 87. Cirrhotic appearance of the liver and signs of portal hypertension on CT. She and her have not been aware of her having cirrhosis. Extensive discussion with patient and regarding liver cirrhosis, risk of complications, chronicity of condition and need for chronic follow-up. Received a dose of Lasix in ED. s/p paracentesis-- continue diuresis with Lasix and spironolactone. Monitor for risk of hypotension. Electrolyte deficiency. Recheck chemistry. Discussed: Newly identified decompensated cirrhosis with associated complications discussed in detail. - Avoid alcohol entirely. - Avoid nonsteroidal anti-inflammatory drugs (NSAIDs). - Avoid raw shellfish (e.g., oysters; no raw fish/sushi). - Arrange close outpatient follow-up after discharge with primary care and hepatology specialist. At some point would benefit from EGD as well. - Plan for follow-up with PCP to arrange yearly liver ultrasound after discharge. Follow-up with hepatology. 3. Anasarca: Generalized edema/anasarca : Significant swelling attributed to cirrhosis- related fluid shifts. - Furosemide (Lasix) 40 mg IV given in the emergency department. Continue IV Lasix, spironolactone. - s/p paracentesis 4. Ascites: Tense ascites. Paracentesis requested. Requested fluid analysis and Gram stain and culture. With generalized weakness, assess for possible SBP. Empiric antibiotic coverage for now with community-acquired pneumonia. 5. Community acquired pneumonia: Respiratory failure with hypoxia, with noted pulmonary infiltrates as above. Blood cultures been obtained in ED. growing strep pyogenes. started cefepime iv- will monitor. repeat blood cx tomorrow after starting cefepime today 6. Acute anemia: Low hemoglobin; chronic low-level blood loss suspected; patient denies overt gastrointestinal bleeding. - Transfuse blood (initiated in the emergency department). - Start acid-inderjit medication due to concern for possible chronic gastrointestinal blood loss. - Follow up hemoglobin/blood counts. - At some point will benefit from EGD Plan: Pleural effusions : Imaging shows large right and small left pleural effusions. - Diuresis. Consider thoracentesis for symptomatic relief. - Supportive care with oxygen; monitor respiratory status. EtOH intake: Counseled to discontinue any alcohol intake. Monitor for any withdrawal. Thiamine, folic acid. [place] protocol. Follow-up : Discharge planning and ongoing care needs discussed. - Arrange referral to hepatology from the hospital at discharge (or via primary care if needed). - Establish primary care for ongoing monitoring of liver disease and routine labs. - Discussed and documented patient is agreeable to CPR if needed (full code). - Check thyroid function tests. PDMP PDMP Reviewed: Not Reviewed Attestations 2 Medical Necessity Statement*: Patient is having bacteremia, antibiotics started. Also has acute hypoxic respiratory failure requiring 8 liters of oxygen Coding Level of Care Code Acute Code for Chg Fwd Diagnoses Acute respiratory failure with hypoxia J96.01 Decompensated hepatic cirrhosis K72.90; K74.60 Anasarca R60.1 Ascites R18.8 Community acquired pneumonia J18.9 Acute anemia D64.9
[2025-05-10] MEDS: cefepime 1,000 mg SDV 1000 MG IVP ×2 (12:37→19:33)
--- NOTE | 2025-05-10 18:46 | P.CONIM_ITS ---
Providers/Reason For Consult 2 Consulting Physician/Specialty*: Dr. Mcgowan Reason for Consult*: Bilateral pleural effusion Attending Physician: Lolis Mcgowan MD History of Present Illness History of Present Illness Silvia Mcneal is a 64 year old female with past medical history of diabetes type 2, alcohol abuse, presents initially to the hospital with increased swelling. Was only very edematous with ascites and hypoxemia. Currently on 8 L mid flow. She had a CT scan of the chest that showed bilateral pleural effusions as well as a large ascites. She had paracentesis done with 3 L of fluid removed. She has also received 1 unit of packed red blood cells for low hemoglobin of 6.4 no obvious signs of bleeding. Diagnosed with esophageal varices probable source. Although she is noted to have black tarry stools. Medications/Allergies Home Medications ?Medication ?Instructions ?Recorded ?Confirmed ?Last Taken ?Type calcium carbonate 500 - 1,000 mg PO BID PRN St omach 05/09/25 05/09/25 05/08/25 History Upset quxtdqtu-edo-gorck ac 400 1 tab PO DAILY 05/09/25 1207/0305/07/25 History mcg-calcium carb 500 mg-vit K1 20 mcg tablet Allergies Allergy/AdvReac Type Severity Reaction Status Date / Time amoxicillin Allergy ALGY-Difficulty Verified 08/09/22 13:24 Breathing Penicillins Allergy ALGY-Difficulty Verified 08/09/22 13:24 Breathing Current Medications Generic Name Dose Route Start Last Admin Trade Name Freq PRN Reason Stop Dose Admin Cefepime HCl 1,000 mg 05/10/25 12:15 05/10/25 12:37 Cefepime 1,000 Mg Sdv IVP 1,000 mg Q8H BENJI Administration Protocol Folic Acid 1 mg 05/10/25 05:00 05/10/25 04:46 Folic Acid 1 Mg Tablet PO Not Given DAILY BENJI Furosemide 40 mg 05/09/25 17:00 05/10/25 16:19 Furosemide 10 Mg/Ml Sdv 4ml IVP 40 mg BID BENJI Administration Multivitamins Therapeutic 1 tab 05/10/25 05:00 05/10/25 04:46 Multivitamin Therapeutic Tablet PO Not Given DAILY BENJI Spironolactone 100 mg 05/09/25 17:00 05/10/25 16:19 Spironolactone 25 Mg Tablet PO 100 mg BID BENJI Administration Thiamine Mononitrate 100 mg 05/10/25 05:00 05/10/25 04:46 Thiamine 100 Mg Tablet PO Not Given DAILY BENJI PFSH Acute 2 PFSH: Medical History (Updated 05/10/25 @ 20:47 by Huyen Prather MD) Pleural effusion Community acquired pneumonia Paronychia Hypertension Thyroid nodule greater than or equal to 1.5 cm in diameter incidentally noted on imaging study cystic on 08/09/22 thyroid US Anxiety Diabetes type 2, uncontrolled DIC (disseminated intravascular coagulation) Ketoacidosis Lactic acidosis Metabolic encephalopathy Thrombocytopenia Sepsis Social History (Updated 05/09/25 @ 12:46 by Joseph Bowen MD) Smoking and tobacco/nicotine status: never used tobacco/nicotine Alcohol intake: current Substance/Drug Use: never Household members: spouse Marital status: Vitals/I&O/Wt Last Vital Signs Temp 97.8 F 05/10/25 09:00 Pulse 93 05/10/25 18:09 Resp 20 H 05/10/25 16:00 BP 123/52 05/10/25 18:09 Pulse Ox 96 05/10/25 18:09 O2 Del Method High Flow Nasal Cannula 05/10/25 18:09 O2 Flow Rate 8 05/10/25 18:09 05/10/25 05/10/25 05/10/25 06:59 14:59 22:59 Output Total 950 / 950 450 / 1400 Balance -950 / -950 -450 / -1400 Weight last 48 hrs Weight 218 lb 7.36 oz Weight 229 lb Physical Exam 2 Narrative: Per RN General: alert, NAD obese HEENT: EOMI Pulmonary: Diminished breath sounds bilaterally Cardiovascular: rrr, nl s1s2, Abdomen: soft, nt, nd, no r/g, Extremities: Anasarca noted Neurologic: grossly intact Agree with above exam Urinary Catheter Management: Felix: Cath Placed During This Visit: yes Reason for Continuing Indwelling Catheter: Accurate Measurement of Urinary Output in Critically Ill Patients Urinary Catheter Date of Insertion: 05/09/25 Urinary Catheter Time of Insertion: 09:30 Data 05/10/25 05:47 05/10/25 05:47 Micro: Microbiology 05/09/25 15:30 Gram Stain - Final Ascites Fluid Body Fluid Culture - Preliminary 05/09/25 09:00 Bacterial Antigens - Final Urine,Clean Catch 05/09/25 07:04 Blood Culture - Preliminary Blood NEGATIVE TO DATE 05/09/25 06:59 Blood Culture - Preliminary Blood NEGATIVE TO DATE 05/09/25 09:00 Legionella Urinary Antigen - Final Urine,Clean Catch A&P Assessment and plan 1. Community acquired pneumonia: 2. Acute hypoxemic respiratory failure: 3. Pleural effusion: Plan: # Acute hypoxic respiratory failure most likely secondary to volume overload as well as ascites. # Bilateral pleural effusion likely due to ascites. Status post paracentesis 3 L removed. - Will get chest x-ray again. May need to correct hypercoagulable state before we schedule thoracentesis if pleural effusion still large and she is hypoxic. # ascites # Decompensated hepatic cirrhosis Avoid Tylenol, will DC Continue cefepime Trend LFTs as well as PT/INR # Volume load and anasarca As needed Lasix, watch urine output and creatinine currently stable at 0.7 although mildly low GFR # Anemia-possible acute blood loss. Acute hemoglobin has been above 10. Currently 6.4 receiving packed red blood cells. She may need an EGD but respiratory status is not stable yet. May need to be intubated if she has to undergo EGD. Blood thinners on hold. Platelets being given currently. Will start IV Protonix twice daily # Alcohol abuse - Watch for alcohol withdrawal symptoms. As needed Ativan as needed. Continue multivitamin and thiamine # Thrombocytopenia Most likely secondary to decompensated liver cirrhosis. # Alcohol abuse Will need CSA consult postdischarge CODE STATUS-full The high probability of a clinically significant, sudden or life threatening deterioration of the patient's [Respiratory, cardiac and renal] system(s) required my full and direct attention, intervention and personal management. The critical care time is as shown. This time is in addition to time spent performing any reported procedures but includes the following: [x] Data and vital sign review and interpretation [x] Patient assessment, examination and intervention [x] Documentation [x] Medication orders and management Critical Care Time (min): 45 Telemedicine Consent Patient seen today via Telemedicine by agreement and consent of patient.? Telemedicine technology used during the visit includes audio and, as available, review of images.? The patient encounter is appropriate and reasonable under the circumstances given the patient?s particular presentation at this time.? The patient has been advised of the potential risks and limitations of this mode of treatment (including but not limited to the absence of in-person examination) and has agreed to be treated in a remote fashion in spite of them.? Any, and all, of the patient?s/patient?s family?s questions on this issue have been answered and I have made no promises or guarantees to the patient.. PDMP PDMP Reviewed: Not Reviewed Coding Level of Care Code Critical Care >/= 30 minutes Diagnoses Community acquired pneumonia J18.9 Acute hypoxemic respiratory failure J96.01 Pleural effusion J90
--- NOTE | 2025-05-10 20:57 | XRR_ITS ---
PROCEDURE INFORMATION: Exam: XR Chest Exam date and time: 05/10/2025 10:07 PM Age: 64 years old Clinical indication: Other: Pulmonary infil; Additional info: Pulmonary infiltrates TECHNIQUE: Imaging protocol: Radiologic exam of the chest. Views: 1 view. Total images: 1 COMPARISON: 1. CT angio chest w abd pel w con 05/09/2025 9:27 AM 2. CR (CHEST, ) 05/09/2025 6:35 AM 3. CR XR chest 1V portable [id number] 06/24/2022 8:[address] chest wo con [id number] 06/21/2022 11:32 AM FINDINGS: Lungs: Pulmonary vasculature; moderate prominence, nonspecific. Bilateral upper lobe scattered patchy ground-glass opacities without consolidation. Pleural spaces: No pneumothorax. Stable small left pleural effusion. Interval decrease in size of the large right pleural effusion with stable elevated right diaphragm. Heart/Mediastinum: Moderate cardiomegaly. Diaphragm: Stable elevated right diaphragm. Bones/joints: Moderate generalized degenerative changes of the vertebral column, including multilevel osteophytes, degenerative disc height loss, and facet arthrosis, consistent with patient age. Acromioclavicular joint mild chronic degenerative arthrosis. Shoulder glenohumeral mild osteoarthritis. No intrinsic osseous abnormality identified. Qualitative demineralization of bones (osteopenia) limiting evaluation for nondisplaced fractures. Soft tissues: Soft tissues are normal as visualized, demonstrating no masses or swelling/induration. XR/XR chest 1V portable [id number] IMPRESSION: 1. Pulmonary vasculature; moderate prominence, nonspecific. 2. Bilateral upper lobe scattered patchy ground-glass opacities without consolidation. Differential nonspecific; anchor in clinical context (see comment below). Consider pulmonary edema versus infectious/inflammatory infiltrates or manifestations of aspiration in a supine individual. 3. Stable elevated right diaphragm. 4. Interval decrease in size of large right pleural effusion. Stable small left pleural effusion. 5. Moderate age-appropriate degenerative spinal changes. Other chronic/non-acute findings as described above. COMMENTS: 1. Interpretation of nonspecific ground-glass lung opacities should be anchored in the clinical presentation and laboratory data (differential diagnostic considerations include, infection (viral/atypical), inflammatory (organizing pneumonia, hypersensitivity pneumonitis), edema/hemorrhage. Recommend imaging follow-up based on clinical context. 2. Qualitative demineralization of bones (osteopenia) limiting evaluation for nondisplaced fractures.
[2025-05-10] MEDS: pantoprazole 40 mg SDV IVP (21:38)
[2025-05-11] VITALS (46 sets, daily range): BP systolic 101–142; BP diastolic 47–66; PULSE 74–99; RESP 16–36; TEMP 36.6–36.8; O2SAT 85–98; BMI 35.3
[2025-05-11] MEDS: FUROsemide 10 mg/mL SDV 4mL 40 MG IVP ×2 (04:37→17:23)
[2025-05-11] MEDS: cefepime 1,000 mg SDV 1000 MG IVP ×3 (04:39→20:48)
[2025-05-11] MEDS: multivitamin therapeutic Tablet 1 TAB PO (05:03)
[2025-05-11 06:04] LABS: Hematocrit 26.0 % (36-47); Hemoglobin 7.60 g/dL (11.27-16.99); Mean Corpuscular HGB Conc 29.2 g/dL (30-55); Mean Corpuscular Hemoglobin 23.0 pg (27-33); Mean Corpuscular Volume 78.8 fl (85-98); Nucleated Red Blood Cells % 0 %; Platelet Count 55 10^3/cmm (157-399); Red Blood Count 3.30 10^6/uL (3.85-5.65); White Blood Count 8.02 10^3/uL (3.29-11.43)
[2025-05-11 06:22] LABS: Alanine Aminotransferase 29 U/L (0-33); Albumin Level 2.1 g/dL (3.5-5.2); Alkaline Phosphatase 113 U/L (35-105); Anion Gap 11.2 (5-19); Aspartate Amino Transferase 50 U/L (0-32); Blood Urea Nitrogen 15 mg/dL (8-23); Calcium 7.7 mg/dL (8.5-10.5); Carbon Dioxide 29 mmol/L (22-29); Chloride 99 mmol/L (98-107); Globulin 2.9 g/dL (1.3-4.6); Glucose 129 mg/dL (65-115); Osmolality Calculated 285 mOsm/kg (285-295); Potassium 3.2 mmol/L (3.5-5.1); Sodium 136 mmol/L (136-145); Total Protein 5.0 g/dL (6.6-8.7)
--- NOTE | 2025-05-11 08:30 | P.PN_ITS ---
Subjective 2 Subjective: Patient seen and examined, still requiring liters of oxygen, likely needs thoracentesis and diuresis to get fluid off. blood cx growing strep pyogenes. pt still on 8l NC Vitals/I&O/Wt Last Vital Signs Temp 97.9 F 05/11/25 06:39 Pulse 75 05/11/25 06:00 Resp 17 05/11/25 06:00 BP 117/51 05/11/25 05:30 Pulse Ox 97 05/11/25 06:00 O2 Del Method High Flow Nasal Cannula 05/10/25 18:09 O2 Flow Rate 8 05/10/25 18:09 05/10/25 05/11/25 05/11/25 22:59 06:59 14:59 Output Total 450 / 1400 550 / 1950 Balance -450 / -1400 -550 / -1950 Weight last 48 hrs Weight 99.201 kg Weight 99.092 kg Weight 103.873 kg Physical Exam 2 Const: COMMON NORMALS: patient oriented x3 and alert GENERAL APPEARANCE: c ooperative ORIENTATION/CONSCIOUSNESS: Yes awake HENMT: COMMON NORMALS: oropharynx normal Neck/C-Spine: COMMON NORMALS: no JVD Resp: COMMON NORMALS: normal respiratory effort and clear to auscultation bilaterally AUSCULTATION: clear to auscultation bilaterally Cardio: COMMON NORMALS: no JVD, regular rhythm, S1 normal heart sound present, S2 normal heart sound present and No murmurs present (Cardio) RHYTHM: regular rhythm HEART SOUNDS: S1 normal heart sound present and S2 normal heart sound present GI: COMMON NORMALS: Normal to inspection, nondistended, normoactive bowel sounds present, Soft to palpation and non-tender PALPATION: Yes Soft to palpation Extremity: COMMON NORMALS: no joint enlargement and no pedal edema Neuro: COMMON NORMALS: patient oriented x3 and moves all extremities S ENSORIUM/ORIENTATION: Yes alert Skin: COMMON NORMALS: no rashes or lesions noted GENERAL SKIN EXAM: no rashes or lesions noted Urinary Catheter Management: Felix: Cath Placed During This Visit: yes Reason for Continuing Indwelling Catheter: Accurate Measurement of Urinary Output in Critically Ill Patients Urinary Catheter Date of Insertion: 05/09/25 Urinary Catheter Time of Insertion: 09:30 Data 05/11/25 05:00 05/11/25 05:00 Micro: Microbiology 05/09/25 15:30 Gram Stain - Final Ascites Fluid Body Fluid Culture - Preliminary 05/09/25 09:00 Bacterial Antigens - Final Urine,Clean Catch 05/09/25 07:04 Blood Culture - Preliminary Blood NEGATIVE TO DATE 05/09/25 06:59 Blood Culture - Preliminary Blood NEGATIVE TO DATE A&P Assessment and plan 1. Acute respiratory failure with hypoxia: Acute hypoxic respiratory failure dyspnea associated with pleural effusions and fluid overload. With community- acquired pneumonia, with anasarca, pleural effusion, tense ascites. - S/p paracentesis with removal of 3l however still needs thoracentesis - Continue oxygen support as needed. - pulm consulted, apprecaite reccs 2. Decompensated hepatic cirrhosis: Decompensated liver cirrhosis with anasarca, tense ascites, INR reviewed, 3.07, with noted thrombocytopenia platelets 87. Cirrhotic appearance of the liver and signs of portal hypertension on CT. She and her have not been aware of her having cirrhosis. Extensive discussion with patient and regarding liver cirrhosis, risk of complications, chronicity of condition and need for chronic follow-up. --continue diuresis with Lasix and spironolactone. cr stable replete potassium Discussed: Newly identified decompensated cirrhosis with associated complications discussed in detail. - Avoid alcohol entirely. - Avoid nonsteroidal anti-inflammatory drugs (NSAIDs). - Avoid raw shellfish (e.g., oysters; no raw fish/sushi). - Arrange close outpatient follow-up after discharge with primary care and hepatology specialist. At some point would benefit from EGD as well. - Plan for follow-up with PCP to arrange yearly liver ultrasound after discharge. Follow-up with hepatology. 3. Anasarca: Generalized edema/anasarca : Significant swelling attributed to cirrhosis- related fluid shifts. - Continue IV Lasix, spironolactone. - s/p paracentesis 4. Ascites: Tense ascites. Paracentesis requested. Requested fluid analysis and Gram stain and culture. With generalized weakness, assess for possible SBP. Empiric antibiotic coverage for now with community-acquired pneumonia. 5. Community acquired pneumonia: Respiratory failure with hypoxia, with noted pulmonary infiltrates as above. Blood cultures been obtained in ED. growing strep pyogenes. started cefepime iv- day 2 today=will monitor. repeat blood cx today after starting cefepime 05/10 6. Acute anemia: Low hemoglobin; chronic low-level blood loss suspected; patient denies overt gastrointestinal bleeding. - receibed 1 unit prbc - hgb now stable - may need EGD - CONTINUE PROTONIX 40 IV BID - microcytic anemia, likley iron deficient and anemia of blood loss -check iron studies however may not be accurate secondary to receiving blood transfusion earlier Plan: Pleural effusions : Imaging shows large right and small left pleural effusions. -Pulmonary consulted for possible thoracentesis. Appreciate recs. EtOH intake: Counseled to discontinue any alcohol intake. Monitor for any withdrawal. Thiamine, folic acid. CIWA protocol. Follow-up : Discharge planning and ongoing care needs discussed. - Arrange referral to hepatology from the hospital at discharge (or via primary care if needed). - Establish primary care for ongoing monitoring of liver disease and routine labs. - Discussed and documented patient is agreeable to CPR if needed (full code). - Check thyroid function tests. PDMP PDMP Reviewed: Not Reviewed Attestations 2 Medical Necessity Statement*: Needs hemodynamic monitoring. Needs LFTs trended. Needs thoracentesis. Needs blood cultures repeated. Needs iron studies Coding Level of Care Code Acute Code for Chg Fwd Diagnoses Acute respiratory failure with hypoxia J96.01 Decompensated hepatic cirrhosis K72.90; K74.60 Anasarca R60.1 Ascites R18.8 Community acquired pneumonia J18.9 Acute anemia D64.9
[2025-05-11] MEDS: pantoprazole 40 mg SDV IVP ×2 (09:08→20:48)
[2025-05-11 09:55] LABS: INR 3.85 (0.8-1.2); Prothrombin Time 39.90 SECONDS (12.1-14.9)
[2025-05-11 10:01] LABS: Alanine Aminotransferase 27 U/L (0-33); Albumin Level 1.9 g/dL (3.5-5.2); Alkaline Phosphatase 96 U/L (35-105); Aspartate Amino Transferase 46 U/L (0-32); Ferritin 51 ng/mL (15-150); Globulin 3.1 g/dL (1.3-4.6); Iron 16 ug/dL (37-145); Total Iron Binding Capacity 199 mcg/dl; Total Protein 5.0 g/dL (6.6-8.7); Unsaturated Iron Binding 183 ug/dL (112-347)
[2025-05-11 10:29] LABS: Vitamin B12 > 2000 pg/mL (232-1245)
--- NOTE | 2025-05-11 18:33 | P.PN_ITS ---
Subjective 2 Subjective: Silvia Mcneal is a 64 year old female with past medical history of diabetes type 2, alcohol abuse, presents initially to the hospital with increased swelling. Was only very edematous with ascites and hypoxemia. Currently on 8 L mid flow. She had a CT scan of the chest that showed bilateral pleural effusions as well as a large ascites. She had paracentesis done with 3 L of fluid removed. She has also received 1 unit of packed red blood cells for low hemoglobin of 6.4 no obvious signs of bleeding. Diagnosed with esophageal varices probable source. Although she is noted to have black tarry stools. 05/11/25 Less hypoxia. on 6L NC. less shortness of breath Vitals/I&O/Wt Last Vital Signs Temp 97.9 F 05/11/25 06:39 Pulse 95 05/11/25 18:12 Resp 23 H 05/11/25 18:12 BP 101/66 05/11/25 18:12 Pulse Ox 92 05/11/25 18:12 O2 Del Method High Flow Nasal Cannula 05/11/25 08:35 O2 Flow Rate 35 05/11/25 17:54 FiO2 45 05/11/25 17:54 05/11/25 05/11/25 05/11/25 06:59 14:59 22:59 Output Total 550 / 1950 Balance -550 / -1950 Weight last 48 hrs Weight 218 lb 11.2 oz Weight 218 lb 7.36 oz Physical Exam 2 Narrative: Per RN General: alert, NAD obese HEENT: EOMI Pulmonary: Diminished breath sounds bilaterally Cardiovascular: rrr, nl s1s2, Abdomen: soft, nt, nd, no r/g, Extremities: Anasarca noted Neurologic: grossly intact Agree with above exam Urinary Catheter Management: Felix: Cath Placed During This Visit: yes Reason for Continuing Indwelling Catheter: Accurate Measurement of Urinary Output in Critically Ill Patients Urinary Catheter Date of Insertion: 05/09/25 Urinary Catheter Time of Insertion: 09:30 Data 05/11/25 05:00 05/11/25 05:00 Micro: Microbiology 05/09/25 15:30 Gram Stain - Final Ascites Fluid Body Fluid Culture - Preliminary 05/11/25 09:28 Blood Culture - Preliminary Blood SPECIMEN COLLECTED 05/11/25 09:28 Blood Culture - Preliminary Blood SPECIMEN COLLECTED A&P Assessment and plan 1. Community acquired pneumonia: 2. Acute hypoxemic respiratory failure: 3. Pleural effusion: Plan: # Acute hypoxic respiratory failure most likely secondary to volume overload as well as ascites. # Bilateral pleural effusion likely due to ascites. Status post paracentesis 3 L removed. - CXR reviweed today personally 05/11/25- pleural fluid decreased on the right lung # ascites # Decompensated hepatic cirrhosis Avoid Tylenol Continue cefepime Trend LFTs as well as PT/INR # Volume load and anasarca As needed Lasix, watch urine output and creatinine currently stable at 0.7 although mildly low GFR # Anemia-possible acute blood loss. Acute hemoglobin has been above 10. Currently 7.6 receiving packed red blood cells. She may need an EGD but respiratory status is not stable yet. May need to be intubated if she has to undergo EGD. Blood thinners on hold. Platelets being given currently. continue IV Protonix twice daily # Alcohol abuse - Watch for alcohol withdrawal symptoms. As needed Ativan as needed. Continue multivitamin and thiamine # Thrombocytopenia Most likely secondary to decompensated liver cirrhosis. # Alcohol abuse Will need EXPORT SALES ASSISTANT consult postdischarge Couneselled her to avoid alcohol CODE STATUS-full The high probability of a clinically significant, sudden or life threatening deterioration of the patient's [Respiratory, cardiac and renal] system(s) required my full and direct attention, intervention and personal management. The critical care time is as shown. This time is in addition to time spent performing any reported procedures but includes the following: [x] Data and vital sign review and interpretation [x] Patient assessment, examination and intervention [x] Documentation [x] Medication orders and management Critical Care Time (min): 31 Telemedicine Consent Patient seen today via Telemedicine by agreement and consent of patient.? Telemedicine technology used during the visit includes audio and, as available, review of images.? The patient encounter is appropriate and reasonable under the circumstances given the patient?s particular presentation at this time.? The patient has been advised of the potential risks and limitations of this mode of treatment (including but not limited to the absence of in-person examination) and has agreed to be treated in a remote fashion in spite of them.? Any, and all, of the patient?s/patient?s family?s questions on this issue have been answered and I have made no promises or guarantees to the patient.. PDMP PDMP Reviewed: Not Reviewed Attestations 2 Medical Necessity Statement*: acute respiratory failure Coding Level of Care Code Critical Care >/= 30 minutes Diagnoses Community acquired pneumonia J18.9 Acute hypoxemic respiratory failure J96.01 Pleural effusion J90
[2025-05-11 23:18] LABS: Hematocrit 24.9 % (36-47); Hemoglobin 7.60 g/dL (11.27-16.99); Mean Corpuscular HGB Conc 30.5 g/dL (30-55); Mean Corpuscular Hemoglobin 23.3 pg (27-33); Mean Corpuscular Volume 76.4 fl (85-98); Nucleated Red Blood Cells % 0.3 %; Platelet Count 54 10^3/cmm (157-399); Red Blood Count 3.26 10^6/uL (3.85-5.65); White Blood Count 7.90 10^3/uL (3.29-11.43)
[2025-05-11 23:48] LABS: Anion Gap 10.2 (5-19); Blood Urea Nitrogen 18 mg/dL (8-23); Calcium 7.7 mg/dL (8.5-10.5); Carbon Dioxide 29 mmol/L (22-29); Chloride 101 mmol/L (98-107); Glucose 147 mg/dL (65-115); Osmolality Calculated 289 mOsm/kg (285-295); Potassium 3.2 mmol/L (3.5-5.1); Sodium 137 mmol/L (136-145)
[2025-05-12] VITALS (66 sets, daily range): BP systolic 114–175; BP diastolic 50–87; PULSE 67–97; RESP 15–34; TEMP 36.6–36.7; O2SAT 87–97
[2025-05-12] MEDS: potassium chloride oral liq 20 mEq/15 mL UDC 40 MEQ PO (00:44)
[2025-05-12] MEDS: multivitamin therapeutic Tablet 1 TAB PO (04:46)
[2025-05-12] MEDS: FUROsemide 10 mg/mL SDV 4mL 40 MG IVP (04:46)
[2025-05-12] MEDS: cefepime 1,000 mg SDV 1000 MG IVP ×3 (04:46→21:11)
[2025-05-12 06:21] LABS: Hematocrit 25.7 % (36-47); Hemoglobin 7.80 g/dL (11.27-16.99); Mean Corpuscular HGB Conc 30.4 g/dL (30-55); Mean Corpuscular Hemoglobin 23.5 pg (27-33); Mean Corpuscular Volume 77.4 fl (85-98); Nucleated Red Blood Cells % 0 %; Platelet Count 55 10^3/cmm (157-399); Red Blood Count 3.32 10^6/uL (3.85-5.65); White Blood Count 7.37 10^3/uL (3.29-11.43)
[2025-05-12 06:39] LABS: Alanine Aminotransferase 29 U/L (0-33); Albumin Level 2.1 g/dL (3.5-5.2); Alkaline Phosphatase 112 U/L (35-105); Anion Gap 11.7 (5-19); Aspartate Amino Transferase 51 U/L (0-32); Blood Urea Nitrogen 18 mg/dL (8-23); Calcium 7.7 mg/dL (8.5-10.5); Carbon Dioxide 29 mmol/L (22-29); Chloride 101 mmol/L (98-107); Globulin 3.0 g/dL (1.3-4.6); Glucose 130 mg/dL (65-115); Osmolality Calculated 290 mOsm/kg (285-295); Potassium 3.7 mmol/L (3.5-5.1); Sodium 138 mmol/L (136-145); Total Protein 5.1 g/dL (6.6-8.7)
[2025-05-12 06:41] LABS: Alanine Aminotransferase 29 U/L (0-33); Albumin Level 2.1 g/dL (3.5-5.2); Alkaline Phosphatase 121 U/L (35-105); Aspartate Amino Transferase 47 U/L (0-32); Globulin 3.1 g/dL (1.3-4.6); Total Protein 5.2 g/dL (6.6-8.7)
[2025-05-12 06:53] LABS: INR 4.12 (0.8-1.2); Prothrombin Time 42.00 SECONDS (12.1-14.9)
--- NOTE | 2025-05-12 08:28 | PM.PN ---
Subjective Subjective: Silvia Mcneal is a 64 year old female with past medical history of diabetes type 2, alcohol abuse, presents initially to the hospital with increased swelling. Was only very edematous with ascites and hypoxemia. Currently on 8 L mid flow. She had a CT scan of the chest that showed bilateral pleural effusions as well as a large ascites. She had paracentesis done with 3 L of fluid removed. She has also received 1 unit of packed red blood cells for low hemoglobin of 6.4 no obvious signs of bleeding. Diagnosed with esophageal varices probable source. Although she is noted to have black tarry stools. 05/11/25 Less hypoxia. on 6L NC. less shortness of breath 05/12/25 40L/55%, dyspnea. black tarry stools. Vitals/I&O/Wt Last Vital Signs Temp 97.8 F 05/12/25 00:45 Pulse 80 05/12/25 08:00 Resp 22 H 05/12/25 08:00 BP 136/65 05/12/25 08:00 Pulse Ox 93 05/12/25 08:00 O2 Del Method Heated High Flow 05/12/25 07:21 O2 Flow Rate 40 05/12/25 07:21 FiO2 55 05/12/25 07:21 05/11/25 05/12/25 05/12/25 22:59 06:59 14:59 Intake Total 360 / 360 Output Total 850 / 850 Balance -490 / -490 Weight last 48 hrs Weight 206 lb Weight 218 lb 11.2 oz Physical Exam Narrative: Per RN General: alert, NAD obese HEENT: EOMI Pulmonary: Diminished breath sounds bilaterally Cardiovascular: rrr, nl s1s2, Abdomen: soft, nt, nd, no r/g, Extremities: Anasarca noted Neurologic: grossly intact Agree with above exam Urinary Catheter Management: Felix: Cath Placed During This Visit: yes Reason for Continuing Indwelling Catheter: Accurate Measurement of Urinary Output in Critically Ill Patients Urinary Catheter Date of Insertion: 05/09/25 Urinary Catheter Time of Insertion: 09:30 Data 05/12/25 04:50 05/12/25 04:50 Micro: Microbiology 05/11/25 20:17 Occult Blood (FIT) - Final Stool Routine Collection 05/09/25 15:30 Gram Stain - Final Ascites Fluid Body Fluid Culture - Preliminary 05/11/25 09:28 Blood Culture - Preliminary Blood SPECIMEN COLLECTED 05/11/25 09:28 Blood Culture - Preliminary Blood SPECIMEN COLLECTED A&P Assessment and plan 1. Community acquired pneumonia: 2. Acute hypoxemic respiratory failure: 3. Pleural effusion: Plan: # Acute hypoxic respiratory failure most likely secondary to volume overload as well as ascites. # Bilateral pleural effusion likely due to ascites. Status post paracentesis 3 L removed. - CXR reviweed today personally 05/11/25- pleural fluid decreased on the right lung Does not need thoracentesis currently # ascites Status post paracentesis 3 L removed. # Decompensated hepatic cirrhosis Avoid Tylenol, NSAIDs or propofol Continue cefepime Trend LFTs as well as PT/INR # Volume load and anasarca As needed Lasix, watch urine output and creatinine currently stable at 0.7 although mildly low GFR # Anemia-possible acute blood loss. Acute hemoglobin has been above 10. Currently 7.6 receiving packed red blood cells. She may need an EGD but respiratory status is not stable yet. May need to be intubated if she has to undergo EGD. Blood thinners on hold. Platelets being given currently. continue IV Protonix twice daily # Alcohol abuse - Watch for alcohol withdrawal symptoms. As needed Ativan as needed. Continue multivitamin and thiamine # Thrombocytopenia Most likely secondary to decompensated liver cirrhosis. # Alcohol abuse Will need AUTOMOTIVE SPECIALTY TECHNICIAN consult postdischarge Couneselled her to avoid alcohol CODE STATUS-full Medical decision making level-moderate Moderate MDM includes number and complexity of problems actively addressed during encounter, amount and/or complexity of data reviewed/ordered [ previous or external records, resulted lab(s)/test(s), ordered lab(s)/test(s), independent historian, independent test interpretation and other healthcare professional discussion] and described risk of complication, morbidity or mortality of management as documented This documentation was created by [employer] family literacy coordinator software (known for inherent family literacy coordinator error). Every effort was made to assure accuracy of family literacy coordinator. Any obvious errors or omissions should be clarified with the author of the document Telemedicine Consent Patient seen today via Telemedicine by agreement and consent of patient.? Telemedicine technology used during the visit includes audio and, as available, review of images.? The patient encounter is appropriate and reasonable under the circumstances given the patient?s particular presentation at this time.? The patient has been advised of the potential risks and limitations of this mode of treatment (including but not limited to the absence of in-person examination) and has agreed to be treated in a remote fashion in spite of them.? Any, and all, of the patient?s/patient?s family?s questions on this issue have been answered and I have made no promises or guarantees to the patient.. PDMP PDMP Reviewed: Not Reviewed Attestations Medical Necessity Statement*: Okay to be transferred to floor from pulmonary standpoint. Coding Level of Care Code 74274 Diagnoses Community acquired pneumonia J18.9 Acute hypoxemic respiratory failure J96.01 Pleural effusion J90
[2025-05-12] MEDS: pantoprazole 40 mg SDV IVP ×2 (08:32→21:11)
--- NOTE | 2025-05-12 13:57 | P.PN_ITS ---
Subjective 2 Subjective: Silvia Mcneal is a 64 year old female with past medical history of diabetes type 2, alcohol abuse, presents initially to the hospital with increased swelling. Was only very edematous with ascites and hypoxemia. Currently on 8 L mid flow. She had a CT scan of the chest that showed bilateral pleural effusions as well as a large ascites. She had paracentesis done with 3 L of fluid removed. She has also received 1 unit of packed red blood cells for low hemoglobin of 6.4 no obvious signs of bleeding. Diagnosed with esophageal varices probable source. Although she is noted to have black tarry stools. 05/11/25 Less hypoxia. on 6L NC. less shortness of breath 05/12/25 40L/55%, remains short of breath. Did d iscuss possibility of endoscopy with surgery however given her high oxygen requirements, endoscopy is not possible at this point of time. Vitals/I&O/Wt Last Vital Signs Temp 97.8 F 05/12/25 00:45 Pulse 87 05/12/25 12:30 Resp 23 H 05/12/25 12:30 BP 138/64 05/12/25 12:30 Pulse Ox 88 L 05/12/25 12:30 O2 Del Method Heated High Flow 05/12/25 07:21 O2 Flow Rate 40 05/12/25 11:14 FiO2 57 05/12/25 11:14 05/11/25 05/12/25 05/12/25 22:59 06:59 14:59 Intake Total 360 / 360 500 / 500 Output Total 850 / 850 Balance -490 / -490 500 / 500 Weight last 48 hrs Weight 93.44 kg Weight 99.201 kg Physical Exam 2 Const: COMMON NORMALS: patient oriented x3 and alert GENERAL APPEARANCE: c ooperative ORIENTATION/CONSCIOUSNESS: Yes awake HENMT: COMMON NORMALS: oropharynx normal Neck/C-Spine: COMMON NORMALS: no JVD Resp: COMMON NORMALS: normal respiratory effort and clear to auscultation bilaterally AUSCULTATION: clear to auscultation bilaterally Cardio: COMMON NORMALS: no JVD, regular rhythm, S1 normal heart sound present, S2 normal heart sound present and No murmurs present (Cardio) RHYTHM: regular rhythm HEART SOUNDS: S1 normal heart sound present and S2 normal heart sound present GI: COMMON NORMALS: Normal to inspection, nondistended, normoactive bowel sounds present, Soft to palpation and non-tender PALPATION: Yes Soft to palpation Extremity: COMMON NORMALS: no joint enlargement and no pedal edema Neuro: COMMON NORMALS: patient oriented x3 and moves all extremities S ENSORIUM/ORIENTATION: Yes alert Skin: COMMON NORMALS: no rashes or lesions noted GENERAL SKIN EXAM: no rashes or lesions noted Urinary Catheter Management: Felix: Cath Placed During This Visit: yes Reason for Continuing Indwelling Catheter: Accurate Measurement of Urinary Output in Critically Ill Patients Urinary Catheter Date of Insertion: 05/09/25 Urinary Catheter Time of Insertion: 09:30 Data 05/12/25 04:50 05/12/25 04:50 Micro: Microbiology 05/11/25 09:28 Blood Culture - Preliminary Blood NEGATIVE TO DATE 05/11/25 09:28 Blood Culture - Preliminary Blood NEGATIVE TO DATE 05/11/25 20:17 Occult Blood (FIT) - Final Stool Routine Collection 05/09/25 15:30 Gram Stain - Final Ascites Fluid Body Fluid Culture - Preliminary A&P Assessment and plan 1. Acute respiratory failure with hypoxia: Acute hypoxic respiratory failure dyspnea associated with pleural effusions and fluid overload. With community- acquired pneumonia, with anasarca, pleural effusion, tense ascites. - S/p paracentesis with removal of 3l however still needs thoracentesis - Continue oxygen support as needed. - pulm consulted, apprecaite reccs 2. Decompensated hepatic cirrhosis: Decompensated liver cirrhosis with anasarca, tense ascites, INR reviewed, 3.07, with noted thrombocytopenia platelets 87. Cirrhotic appearance of the liver and signs of portal hypertension on CT. She and her have not been aware of her having cirrhosis. Extensive discussion with patient and regarding liver cirrhosis, risk of complications, chronicity of condition and need for chronic follow-up. --continue diuresis with Lasix and spironolactone. cr stable replete potassium --Increase the dose of Lasix today to 60 IV twice daily Discussed: Newly identified decompensated cirrhosis with associated complications discussed in detail. - Avoid alcohol entirely. - Avoid nonsteroidal anti-inflammatory drugs (NSAIDs). - Avoid raw shellfish (e.g., oysters; no raw fish/sushi). - Arrange close outpatient follow-up after discharge with primary care and hepatology specialist. At some point would benefit from EGD as well. - Plan for follow-up with PCP to arrange yearly liver ultrasound after discharge. Follow-up with hepatology. 3. Anasarca: Generalized edema/anasarca : Significant swelling attributed to cirrhosis- related fluid shifts. - Continue IV Lasix, spironolactone. - s/p paracentesis 4. Ascites: Tense ascites. S/p paracentesis with removal of 3 L of fluid. Currently covered with antibiotics. 5. Community acquired pneumonia: Respiratory failure with hypoxia, with noted pulmonary infiltrates as above. Blood cultures have been negative. 6. Acute anemia: Low hemoglobin; chronic low-level blood loss suspected; patient denies overt gastrointestinal bleeding. - receibed 1 unit prbc - hgb now stable - may need EGD - CONTINUE PROTONIX 40 IV BID - microcytic anemia, likley iron deficient and anemia of blood loss -check iron studies however may not be accurate secondary to receiving blood transfusion earlier Plan: Pleural effusions : Imaging shows large right and small left pleural effusions. -Pulmonary consulted for possible thoracentesis. Appreciate recs. EtOH intake: Counseled to discontinue any alcohol intake. Monitor for any withdrawal. Thiamine, folic acid. [place] protocol. Follow-up : Discharge planning and ongoing care needs discussed. - Arrange referral to hepatology from the hospital at discharge (or via primary care if needed). - Establish primary care for ongoing monitoring of liver disease and routine labs. - Discussed and documented patient is agreeable to CPR if needed (full code). - Check thyroid function tests. PDMP PDMP Reviewed: Not Reviewed Attestations 2 Medical Necessity Statement*: Hypoxia worsening. Dose of Lasix increased. Will discuss with pulmonary about possible thoracentesis. Coding Level of Care Code Acute Code for Chg Fwd Diagnoses Acute respiratory failure with hypoxia J96.01 Decompensated hepatic cirrhosis K72.90; K74.60 Anasarca R60.1 Ascites R18.8 Community acquired pneumonia J18.9 Acute anemia D64.9
[2025-05-12] MEDS: FUROsemide 10 mg/mL SDV 4mL 60 MG IVP (16:41)
[2025-05-13] VITALS (53 sets, daily range): BP systolic 95–152; BP diastolic 36–71; PULSE 77–102; RESP 17–31; TEMP 36.4; O2SAT 86–100
[2025-05-13] MEDS: cefepime 1,000 mg SDV 1000 MG IVP ×3 (04:49→20:31)
[2025-05-13] MEDS: FUROsemide 10 mg/mL SDV 4mL 60 MG IVP (04:49)
[2025-05-13] MEDS: multivitamin therapeutic Tablet 1 TAB PO (04:50)
[2025-05-13 05:56] LABS: Hematocrit 26.4 % (36-47); Hemoglobin 8.00 g/dL (11.27-16.99); Mean Corpuscular HGB Conc 30.3 g/dL (30-55); Mean Corpuscular Hemoglobin 23.8 pg (27-33); Mean Corpuscular Volume 78.6 fl (85-98); Nucleated Red Blood Cells % 0.2 %; Platelet Count 47 10^3/cmm (157-399); Red Blood Count 3.36 10^6/uL (3.85-5.65); White Blood Count 9.06 10^3/uL (3.29-11.43)
[2025-05-13 06:12] LABS: Anion Gap 10.8 (5-19); Blood Urea Nitrogen 20 mg/dL (8-23); Calcium 8.0 mg/dL (8.5-10.5); Carbon Dioxide 31 mmol/L (22-29); Chloride 101 mmol/L (98-107); Glucose 114 mg/dL (65-115); Osmolality Calculated 291 mOsm/kg (285-295); Potassium 3.8 mmol/L (3.5-5.1); Sodium 139 mmol/L (136-145)
--- NOTE | 2025-05-13 07:59 | P.PN_ITS ---
Subjective 2 Subjective: Silvia Mcneal is a 64 year old female with past medical history of diabetes type 2, alcohol abuse, presents initially to the hospital with increased swelling. Was only very edematous with ascites and hypoxemia. Currently on 8 L mid flow. She had a CT scan of the chest that showed bilateral pleural effusions as well as a large ascites. She had paracentesis done with 3 L of fluid removed. She has also received 1 unit of packed red blood cells for low hemoglobin of 6.4 no obvious signs of bleeding. Diagnosed with esophageal varices probable source. Although she is noted to have black tarry stools. 05/11/25 Less hypoxia. on 6L NC. less shortness of breath 05/12/25 40L/55%, remains short of breath. Did d iscuss possibility of endoscopy with surgery however given her high oxygen requirements, endoscopy is not possible at this point of time. 05/13 Patient seen and examined, remains on High flow nasal canula Vitals/I&O/Wt Last Vital Signs Temp 97.9 F 05/12/25 20:45 Pulse 93 05/13/25 07:50 Resp 25 H 05/13/25 07:50 BP 135/67 05/13/25 05:00 Pulse Ox 88 L 05/13/25 07:50 O2 Del Method High Flow Nasal Cannula 05/13/25 07:50 O2 Flow Rate 40 05/13/25 07:50 FiO2 50 05/13/25 07:50 05/12/25 05/13/25 05/13/25 22:59 06:59 14:59 Intake Total 550 / 1050 Output Total 2200 / 2200 Balance -1650 / -1150 Weight last 48 hrs Weight 93.44 kg Physical Exam 2 Const: COMMON NORMALS: patient oriented x3 and alert GENERAL APPEARANCE: c ooperative ORIENTATION/CONSCIOUSNESS: Yes awake HENMT: COMMON NORMALS: oropharynx normal Neck/C-Spine: COMMON NORMALS: no JVD Resp: COMMON NORMALS: normal respiratory effort and clear to auscultation bilaterally AUSCULTATION: clear to auscultation bilaterally Cardio: COMMON NORMALS: no JVD, regular rhythm, S1 normal heart sound present, S2 normal heart sound present and No murmurs present (Cardio) RHYTHM: regular rhythm HEART SOUNDS: S1 normal heart sound present and S2 normal heart sound present GI: COMMON NORMALS: Normal to inspection, nondistended, normoactive bowel sounds present, Soft to palpation and non-tender PALPATION: Yes Soft to palpation Extremity: COMMON NORMALS: no joint enlargement and no pedal edema Neuro: COMMON NORMALS: patient oriented x3 and moves all extremities S ENSORIUM/ORIENTATION: Yes alert Skin: COMMON NORMALS: no rashes or lesions noted GENERAL SKIN EXAM: no rashes or lesions noted Urinary Catheter Management: Felix: Cath Placed During This Visit: yes Reason for Continuing Indwelling Catheter: Accurate Measurement of Urinary Output in Critically Ill Patients Urinary Catheter Date of Insertion: 05/09/25 Urinary Catheter Time of Insertion: 09:30 Data 05/13/25 04:45 05/13/25 04:45 Micro: Microbiology 05/09/25 15:30 Gram Stain - Final Ascites Fluid Body Fluid Culture - Final 05/11/25 09:28 Blood Culture - Preliminary Blood NEGATIVE TO DATE 05/11/25 09:28 Blood Culture - Preliminary Blood NEGATIVE TO DATE A&P Assessment and plan 1. Acute respiratory failure with hypoxia: Acute hypoxic respiratory failure dyspnea associated with pleural effusions and fluid overload. With community- acquired pneumonia, with anasarca, pleural effusion, tense ascites. - S/p paracentesis with removal of 3l - Continue oxygen support as needed. - pulm consulted, Appreciate recs. Patient does not need thoracentesis per pulmonary note. 2. Decompensated hepatic cirrhosis: Decompensated liver cirrhosis with anasarca, tense ascites, INR reviewed, 3.07, with noted thrombocytopenia platelets 87. Cirrhotic appearance of the liver and signs of portal hypertension on CT. She and her have not been aware of her having cirrhosis. Extensive discussion with patient and regarding liver cirrhosis, risk of complications, chronicity of condition and need for chronic follow-up. --continue diuresis with Lasix and spironolactone. cr stable replete potassium --Had increased dose of Lasix to 60 IV twice daily yesterday, creatinine stable will increase to 80 IV twice daily today. Continue monitoring creatinine. Patient still has volume overload. However improving gradually. Attempt to wean of oxygen with diuresis. Does not require thoracentesis per pulmonary anymore. Discussed: Newly identified decompensated cirrhosis with associated complications discussed in detail. - Avoid alcohol entirely. - Avoid nonsteroidal anti-inflammatory drugs (NSAIDs). - Avoid raw shellfish (e.g., oysters; no raw fish/sushi). - Arrange close outpatient follow-up after discharge with primary care and hepatology specialist. At some point would benefit from EGD as well. - Plan for follow-up with PCP to arrange yearly liver ultrasound after discharge. Follow-up with hepatology. 3. Anasarca: Generalized edema/anasarca : Significant swelling attributed to cirrhosis- related fluid shifts. - Continue IV Lasix--increasing the dose of IV Lasix as tolerated. Spironolactone. - s/p paracentesis 4. Ascites: Tense ascites. S/p paracentesis with removal of 3 L of fluid. Currently covered with antibiotics. However ascitic fluid cultures are negative. 5. Community acquired pneumonia: Respiratory failure with hypoxia, with noted pulmonary infiltrates as above. Blood cultures have been negative. 6. Acute anemia: Low hemoglobin; chronic low-level blood loss suspected; patient denies overt gastrointestinal bleeding. - receibed 1 unit prbc - hgb now stable - may need EGD - CONTINUE PROTONIX 40 IV BID - microcytic anemia, likley iron deficient and anemia of blood loss -check iron studies however may not be accurate secondary to receiving blood transfusion earlier - Discussed with surgery regarding possible EGD however currently too unstable to have the same signs requiring high flow oxygen, attempt to revisit later with surgery once oxygen requirements improved. Patient's stool occult is positive, continue monitoring for pneumonia. And with underlying history of liver cirrhosis, will require EGD sooner than later. Plan: Pleural effusions : Imaging shows large right and small left pleural effusions. -Pulmonary consulted for possible thoracentesis. however per pulmonary does not require thoracentesis anymore . EtOH intake: Counseled to discontinue any alcohol intake. Monitor for any withdrawal. Thiamine, folic acid. CIWA protocol. Follow-up : Discharge planning and ongoing care needs discussed. - Arrange referral to hepatology from the hospital at discharge (or via primary care if needed). - Establish primary care for ongoing monitoring of liver disease and routine labs. - Discussed and documented patient is agreeable to CPR if needed (full code). - Check thyroid function tests. PDMP PDMP Reviewed: Not Reviewed Attestations 2 Medical Necessity Statement*: Requiring high flow oxygen. Currently getting diuresed with IV Lasix. Will eventually require EGD and colonoscopy for anemia. Coding Level of Care Code Acute Code for Chg Fwd Diagnoses Acute respiratory failure with hypoxia J96.01 Decompensated hepatic cirrhosis K72.90; K74.60 Anasarca R60.1 Ascites R18.8 Community acquired pneumonia J18.9 Acute anemia D64.9
[2025-05-13] MEDS: pantoprazole 40 mg SDV IVP ×2 (08:05→20:32)
[2025-05-13] MEDS: LORazepam 2 mg/mL INJ 1 mL IVP (08:05)
--- NOTE | 2025-05-13 10:08 | CTR_ITS ---
PROCEDURE INFORMATION: Exam: CTA Chest With Contrast Exam date and time: 05/13/2025 10:53 AM Age: 64 years old Clinical indication: Other: Worsening hypoxia TECHNIQUE: Imaging protocol: Computed tomographic angiography of the chest with contrast. Exam focused on the arteries. 3D rendering (Not supervised by radiologist): MIP and/or 3D reconstructed images were created by the technologist. Radiation optimization: All CT scans at this facility use at least one of these dose optimization techniques: automated exposure control; mA and/or kV adjustment per patient size (includes targeted exams where dose is matched to clinical indication); or iterative reconstruction. Contrast material: OMNI 350; Contrast volume: 100 ml; Contrast route: INTRAVENOUS (IV); COMPARISON: CT angio chest w abd pel w con 05/09/2025 9:27 AM RADIATION DOSE METRICS: Total DLP (mGy-cm): 367.64 FINDINGS: Pulmonary arteries: There is no acute or chronic pulmonary embolism. Aorta: Unremarkable. No aortic aneurysm. No aortic dissection. Lungs: There is extensive confluent airspace disease involving the upper lobes with more confluent consolidative appearance right middle lobe and both lower lobes differential to consider would include pulmonary edema however multilobar pneumonia or developing ARDS not excluded correlate and follow-up as indicated Pleural spaces: There is a large left a moderate size left-sided pleural effusion. There are no pneumothoraces Heart: Unremarkable. No cardiomegaly. No pericardial effusion. Coronary arteries: There are no findings present to suggest significant coronary artery calcifications Lymph nodes: Unremarkable. No enlarged lymph nodes. Liver: There are findings in the upper abdomen reveal advanced liver cirrhosis Bones/joints: Unremarkable. No acute fracture. Soft tissues: Subcutaneous edema present compatible with edematous state. Other findings: There is no aneurysm. CT/CT angio chest PE protcl [id number] IMPRESSION: Severe airspace disease with a combination of ground-glass pneumonitis areas of extensive consolidation pleural effusions differential to consider would include pulmonary edema however multilobar pneumonia or ARDS are considerations correlate and follow-up as indicated No acute or chronic pulmonary embolism or aneurysm. Findings of advanced liver cirrhosis subcutaneous edema pleural effusions compatible with edematous state related to chronic liver disease.
[2025-05-13] MEDS: iohexol 350 mg/mL 500 mL Btl (per mL) IV (11:03)
--- NOTE | 2025-05-13 17:40 | P.PN_ITS ---
Subjective 2 Subjective: Silvia Mcneal is a 64 year old female with past medical history of diabetes type 2, alcohol abuse, presents initially to the hospital with increased swelling. Was only very edematous with ascites and hypoxemia. Currently on 8 L mid flow. She had a CT scan of the chest that showed bilateral pleural effusions as well as a large ascites. She had paracentesis done with 3 L of fluid removed. She has also received 1 unit of packed red blood cells for low hemoglobin of 6.4 no obvious signs of bleeding. Diagnosed with esophageal varices probable source. Although she is noted to have black tarry stools. 05/11/25 Less hypoxia. on 6L NC. less shortness of breath 05/12/25 40L/55%, dyspnea. black tarry stools. 05/13/2025 Patient feels more short of breath today. also higher oxygen requirement. Hyponasal cannula 60 L / 70% FiO2. Satting 91% Vitals/I&O/Wt Last Vital Signs Temp 97.9 F 05/12/25 20:45 Pulse 90 05/13/25 17:00 Resp 24 H 05/13/25 17:00 BP 140/52 05/13/25 17:00 Pulse Ox 92 05/13/25 17:00 O2 Del Method High Flow Nasal Cannula 05/13/25 07:50 O2 Flow Rate 60 05/13/25 16:31 FiO2 70 05/13/25 16:31 Weight last 48 hrs Weight 206 lb Physical Exam 2 Narrative: Per RN General: alert, obese appears dyspneic HEENT: EOMI Pulmonary: Diminished breath sounds bilaterally Cardiovascular: rrr, nl s1s2, Abdomen: Distended positive ascites Extremities: Anasarca noted Neurologic: grossly intact Agree with above exam Urinary Catheter Management: Felix: Cath Placed During This Visit: yes Reason for Continuing Indwelling Catheter: Accurate Measurement of Urinary Output in Critically Ill Patients Urinary Catheter Date of Insertion: 05/09/25 Urinary Catheter Time of Insertion: 09:30 Data 05/13/25 04:45 05/13/25 04:45 Micro: Microbiology 05/09/25 15:30 Gram Stain - Final Ascites Fluid Body Fluid Culture - Final A&P Assessment and plan 1. Community acquired pneumonia: 2. Acute hypoxemic respiratory failure: 3. Pleural effusion: Plan: # Acute hypoxic respiratory failure most likely secondary to volume overload as well as ascites. # Recurrent bilateral pleural effusion likely due to ascites right more than left.. Status post paracentesis 3 L removed. - CXR reviweed today personally 05/11/25- pleural fluid decreased on the right lung Does not need thoracentesis currently - Chest CT reviewed from today 05/13/2025-reaccumulated right pleural effusion large along with ascites as well this extensive left lung infiltrates.-Pneumonia versus ARDS Versus pulmonary hemorrhage secondary to thrombocytopenia - Very high risk for intubation-discussed case with Dr. Mcgowan. Low threshold for intubation if needed. # Bilateral pneumonia versus pulmonary edema Patient does not have a fever or raise white count although underlying aspiration episodes cannot be ruled out. Will collect sputum for culture along with blood and start broad-spectrum antibiotics vancomycin and continue cefepime. # ascites Status post paracentesis 3 L removed. Will schedule paracentesis again. May need indwelling peritoneal catheters # Decompensated hepatic cirrhosis Avoid Tylenol, NSAIDs or propofol Continue cefepime Trend LFTs as well as PT/INR-reordering today. May need plasma if above 5. MELD score is 29-very high risk of mortality. Will get hepatitis panel as well. She will need emergent liver transplant evaluation. Discussed with hospitalist for transfer to [facility]. # Volume load and anasarca Continue Lasix and spironolactone, watch urine output and creatinine currently stable at 0.7 although mildly low GFR # Anemia-possible acute blood loss. Acute hemoglobin has been above 10. Currently 8 today . She may need an EGD but respiratory status is not stable yet. May need to be intubated if she has to undergo EGD. Blood thinners on hold. Platelets being given currently. continue IV Protonix twice daily # Alcohol abuse - Watch for alcohol withdrawal symptoms. As needed Ativan as needed. Continue multivitamin and thiamine # Thrombocytopenia Most likely secondary to decompensated liver cirrhosis. # Alcohol abuse Will need [employer] consult postdischarge Couneselled her to avoid alcohol CODE STATUS-full The high probability of a clinically significant, sudden or life threatening deterioration of the patient's [Respiratory, cardiac and renal] system(s) required my full and direct attention, intervention and personal management. The critical care time is as shown. This time is in addition to time spent performing any reported procedures but includes the following: [x] Data and vital sign review and interpretation [x] Patient assessment, examination and intervention [x] Documentation [x] Medication orders and management Critical Care Time (min): 35 Telemedicine Consent Patient seen today via Telemedicine by agreement and consent of patient.? Telemedicine technology used during the visit includes audio and, as available, review of images.? The patient encounter is appropriate and reasonable under the circumstances given the patient?s particular presentation at this time.? The patient has been advised of the potential risks and limitations of this mode of treatment (including but not limited to the absence of in-person examination) and has agreed to be treated in a remote fashion in spite of them.? Any, and all, of the patient?s/patient?s family?s questions on this issue have been answered and I have made no promises or guarantees to the patient.. PDMP PDMP Reviewed: Not Reviewed Attestations 2 Medical Necessity Statement*: Decompensated liver failure and acute hypoxic respiratory Coding Level of Care Code Critical Care >/= 30 minutes Diagnoses Community acquired pneumonia J18.9 Acute hypoxemic respiratory failure J96.01 Pleural effusion J90
[2025-05-13] MEDS: FUROsemide 10 mg/mL SDV 4mL 80 MG IVP (18:09)
[2025-05-13 18:40] LABS: INR 4.28 (0.8-1.2); Prothrombin Time 43.30 SECONDS (12.1-14.9)
[2025-05-14] VITALS (39 sets, daily range): BP systolic 122–157; BP diastolic 47–72; PULSE 60–101; RESP 14–43; TEMP 36.3–37; O2SAT 83–96
[2025-05-14] MEDS: FUROsemide 10 mg/mL SDV 4mL 80 MG IVP (04:13)
[2025-05-14] MEDS: cefepime 1,000 mg SDV 1000 MG IVP ×3 (04:13→20:21)
[2025-05-14] MEDS: multivitamin therapeutic Tablet 1 TAB PO (04:14)
[2025-05-14 04:43] LABS: Hematocrit 26.3 % (36-47); Hemoglobin 7.80 g/dL (11.27-16.99); Mean Corpuscular HGB Conc 29.7 g/dL (30-55); Mean Corpuscular Hemoglobin 23.9 pg (27-33); Mean Corpuscular Volume 80.7 fl (85-98); Nucleated Red Blood Cells % 0.2 %; Platelet Count 44 10^3/cmm (157-399); Red Blood Count 3.26 10^6/uL (3.85-5.65); White Blood Count 10.65 10^3/uL (3.29-11.43)
[2025-05-14 05:10] LABS: Blood Urea Nitrogen 21 mg/dL (8-23); Calcium 7.8 mg/dL (8.5-10.5); Carbon Dioxide 29 mmol/L (22-29); Chloride 99 mmol/L (98-107); Glucose 114 mg/dL (65-115); Osmolality Calculated 286 mOsm/kg (285-295); Sodium 136 mmol/L (136-145)
[2025-05-14 05:14] LABS: Anion Gap 11.5 (5-19); Potassium 3.5 mmol/L (3.5-5.1)
[2025-05-14] MEDS: albumin 25 G/100 ML BAG 60 G IV ×2 (08:30→16:33)
[2025-05-14 09:20] LABS: Magnesium 1.8 mg/dL (1.7-2.3); Potassium 3.5 mmol/L (3.5-5.1)
[2025-05-14] MEDS: morphine 10 mg/0.5 mL oral liq UD 5 MG PO ×3 (09:42→21:14)
--- NOTE | 2025-05-14 10:02 | PC.NURSE ---
assisted up in bed noted loose bm , bath and linen change done very weak and short of breath with any movement remains on high flow doctor here noted very diminished breath sound right side and decreased left ... albumin started after permission obtained .
--- NOTE | 2025-05-14 11:12 | PC.NURSE ---
remains short of breath urine output minimal from albumin/lasix family at bedside aware above doctor call and order for bipap at this time
[2025-05-14] MEDS: water for injection-sterile 10 ML 10000 ML (14:10)
--- NOTE | 2025-05-14 14:56 | P.PN_ITS ---
Subjective 2 Subjective: Patient states she cannot breathe. was at the bedside for second visit. Explained all the changes as you will see below. Answered all of his questions to his satisfaction Oxygen: Heated high flow 70% at 55 L. IV peripheral Felix: Yes Diet cardiac Medications: Reviewed: Yes Vitals/I&O/Wt Last Vital Signs Temp 97.4 F L 05/14/25 13:36 Pulse 83 05/14/25 13:00 Resp 19 H 05/14/25 13:00 BP 134/54 05/14/25 12:00 Pulse Ox 93 05/14/25 13:00 O2 Del Method Heated High Flow 05/14/25 07:45 O2 Flow Rate 60 05/14/25 10:54 FiO2 90 05/14/25 11:23 05/13/25 05/14/25 05/14/25 22:59 06:59 14:59 Intake Total 250 / 250 250 / 500 310 / 310 Output Total 1000 / 1000 900 / 1900 1750 / 1750 Balance -750 / -750 -650 / -1400 -1440 / -1440 Weight last 48 hrs Weight 90.61 kg Physical Exam 2 Narrative: Awake and alert earlier in the day in moderate distress due to respiratory failure. The repeat exam once the BiPAP was placed and she was started on Roxanol she was comfortable breathing without difficulty. Heart regular rate and rhythm normal S1-S2 no murmurs clicks gallops or rubs Lungs diminished breath sounds in the bilateral bases clear anteriorly no wheezes rales or rhonchi Abdomen obese soft nontender nondistended positive bowel sounds Extremities diffuse edema in the upper and lower extremities +1 to +2 pitting in all 4 Urinary Catheter Management: Felix: Cath Placed During This Visit: yes Reason for Continuing Indwelling Catheter: Accurate Measurement of Urinary Output in Critically Ill Patients Urinary Catheter Date of Insertion: 05/09/25 Urinary Catheter Time of Insertion: 09:30 Data 05/14/25 04:07 05/14/25 08:41 Other Labs: Albumin on 05/12/2009/26/2024 was 2.1 total protein 5.2 Micro: Microbiology 05/09/25 07:04 Blood Culture - Final Blood NO GROWTH AFTER 5 DAYS 05/09/25 06:59 Blood Culture - Final Blood NO GROWTH AFTER 5 DAYS A&P Assessment and plan 1. Acute respiratory failure with hypoxia: Acute hypoxic respiratory failure dyspnea associated with bilateral recurrent pleural effusions and fluid overload. --Roxanol 5 mg every 6 hours for breathlessness. --Changed to BiPAP. Patient is much more comfortable with the new regimen and is resting upon my second visit with patient. 2. Decompensated hepatic cirrhosis: Decompensated liver cirrhosis with anasarca, tense ascites, INR reviewed, 3.07, with noted thrombocytopenia platelets 87. Cirrhotic appearance of the liver and signs of portal hypertension on CT. She and her have not been aware of her having cirrhosis. Patient and have received extensive explanation of the following by previous physician ; liver cirrhosis, risk of complications, chronicity of condition and need for chronic follow-up. -- Increase diuresis with the Lasix drip at 10 mg every hour for a total of 240 mg a day was on 160 mg a day. --Start albumin as patient's protein and albumin levels are markedly decreased Drained 3 L via paracentesis on 05/09/2025 3. Anasarca: Generalized edema/anasarca : Significant swelling attributed to cirrhosis- related fluid shifts. 4. Ascites: S/p paracentesis 05/09/2025 with removal of 3 L of fluid. Currently covered with antibiotics. However ascitic fluid cultures are negative. 5. Community acquired pneumonia: Possible in the differential. May all be related to pleural effusions and anasarca. 6. Acute anemia: Low hemoglobin; chronic low-level blood loss suspected; patient denies overt gastrointestinal bleeding. - receibed 1 unit prbc on 05/09/2025 for hemoglobin of 6.4. Subsequent hemoglobins are ranging between 7.6 and 8.0. - hgb now stable - may need EGD - CONTINUE PROTONIX 40 IV BID - microcytic anemia, likley iron deficient and anemia of blood loss - Iron studies were ordered however this was after receiving a blood transfusion so it may not be accurate - Previous hospitalist had discussed with surgery regarding possible EGD however currently too unstable to have the same signs requiring high flow oxygen, attempt to revisit later with surgery once oxygen requirements improved. Patient's stool occult is positive, continue aggressive treatment for cirrhosis and acute respiratory failure and with underlying history of liver cirrhosis, will require EGD sooner than later. Plan: Patient acutely worsening today. I am hopeful with the change of Lasix to continuous drip as well as addition of albumin and comfort meds added that the patient would turnaround in the next 24 to 48 hours. There is a consideration for transfer to higher level of care which would have hepatology so that would likely be [facility] if she does not show signs of improvement in a reasonable timeframe PDMP PDMP Reviewed: Not Reviewed Attestations 2 Medical Necessity Statement*: Decompensated liver failure and worsening acute hypoxic respiratory Coding Level of Care Code Acute Code for [facility] Diagnoses Acute respiratory failure with hypoxia J96.01 Decompensated hepatic cirrhosis K72.90; K74.60 Anasarca R60.1 Ascites R18.8 Community acquired pneumonia J18.9 Acute anemia D64.9
--- NOTE | 2025-05-14 15:47 | PHA.VACGOAL ---
Vancomycin Goal - Goal Vancomycin Goal:: 15-20 mg/L Vancomycin Indication:: Pneumonia - Therapy Current therapy:: Cefepime Day of therpy:: Day []of [] . Actual body weight (kg): 199 lb 12.16 oz - Data Labs: WBC 10.65 10^3/uL (3.29-11.43) 05/14/25 04:07 RBC 3.26 10^6/uL (3.85-5.65) L 05/14/25 04:07 Hgb 7.80 g/dL (11.27-16.99) L 05/14/25 04:07 Hct 26.3 % (36-47) L 05/14/25 04:07 MCV 80.7 fl (85-98) L 05/14/25 04:07 MCH 23.9 pg (27-33) L 05/14/25 04:07 MCHC 29.7 g/dL (30-55) L 05/14/25 04:07 RDW 26.5 % (12.1-15.1) H 05/14/25 04:07 Sodium 136 mmol/L (136-145) 05/14/25 04:07 Potassium 3.5 mmol/L (3.5-5.1) 05/14/25 08:41 Chloride 99 mmol/L (98-107) 05/14/25 04:07 Carbon Dioxide 29 mmol/L (22-29) 05/14/25 04:07 Anion Gap 11.5 (5-19) 05/14/25 04:07 BUN 21 mg/dL (8-23) 05/14/25 04:07 Creatinine 0.6 mg/dL (0.5-0.9) 05/14/25 04:07 GFR Calculation 100.6 mL/min (90-130) 05/14/25 04:07 Last dialysis session:: N/A Drug administration history:: Medications Discontinued Medications Vancomycin HCl 1,000 mg/ (Sodium Chloride) 250 mls @ 250 mls/hr IV BID BENJI; Protocol Last Admin: 05/14/25 05:28 Dose: Infused Treatment plan:: new consult Regimen:: ORDER WAS ORIGINALLY ENTERED BY DR. MARTINEZ A PROVIDER MANAGED MEDICATION 1000 MG Q12H. HOWEVER, DOSE WAS NOT THERAPEUTIC. PER DR. QUEVEDO, VANCOMYCIN TO NOW BE MANAGED BY PHARMACY. PATIENT ALREADY RECEIVED 1000 MG DOSE. CHANGING DOSE TO 1000 MG Q8H TO START 05/14/25 AT 1600. WILL CONTINUE TO MONITOR DAILY AND PLAN TO DRAW TROUGH PRIOR TO 4TH DOSE.
--- NOTE | 2025-05-14 16:51 | PC.NURSE ---
pt off bipap short time take po meds, took part then sats decreased 65 unable to take other meds placed back on bipap will notify doctor
[2025-05-14 19:49] LABS: Potassium 3.7 mmol/L (3.5-5.1)
[2025-05-14] MEDS: potassium chloride oral liq 20 mEq/15 mL UDC 40 MEQ PO (21:20)
[2025-05-15] VITALS (33 sets, daily range): BP systolic 104–146; BP diastolic 43–67; PULSE 80–108; RESP 15–31; TEMP 36.6–37.2; O2SAT 81–97
[2025-05-15] MEDS: albumin 25 G/100 ML BAG 60 G IV ×3 (00:20→16:11)
[2025-05-15] MEDS: cefepime 1,000 mg SDV 1000 MG IVP ×2 (04:06→12:06)
--- NOTE | 2025-05-15 05:07 | PC.NURSE ---
Pt oxygen requirements have increased this shift. Has desatted as low as 78%, bipap managed by RT. Current O2 sat low 90's. Unable to tolerate bapap being removed for any period of time. Dr. Sandoval made aware, also made aware that pt unable to safely take meds due to oxygen requirements. No new orders at this time.
[2025-05-15 08:39] LABS: Hematocrit 25.7 % (36-47); Hemoglobin 7.60 g/dL (11.27-16.99); Mean Corpuscular HGB Conc 29.6 g/dL (30-55); Mean Corpuscular Hemoglobin 24.6 pg (27-33); Mean Corpuscular Volume 83.2 fl (85-98); Nucleated Red Blood Cells % 0.1 %; Platelet Count 40 10^3/cmm (157-399); Red Blood Count 3.09 10^6/uL (3.85-5.65); White Blood Count 14.05 10^3/uL (3.29-11.43)
[2025-05-15 08:53] LABS: ABG PCO2 54.6 mmHg (35-45); ABG PH Result 7.36 (7.35-7.45); Alveolar-Arterial Oxygen Gradi 47.5 mmHg (5-10); Arterial Blood Gas Hematocrit 24.2 % (37-47); Blood Gas Allen Test Pos; Blood Gas Operator Identificat CAK; Blood Gas Sample Site Radial, left; Blood Gas Sample Type Arterial; Carboxyhemoglobin 1.7 %THgb (0.4-20.1); Glucose Level-ABG 103.0 mg/dL (70-115); HCO3 ABG 30.9 mmol/L (22-26); Ionized Calcium Level - ABG 1.2 mmol/L (1.1-1.4); Methemoglobin 1.1 % (0.4-1.5); Oxygen Saturation ABG 92.3; PO2 ABG 66.8 mmHg (80.0-100.0); PO2 FiO2 Ratio Arterial Blood 95; Potassium Level - ABG 4.0 mmol/L (3.5-5.0); Sodium Level - ABG 139.0 mmol/L (131-143)
[2025-05-15 09:00] LABS: Anion Gap 12.3 (5-19); Blood Urea Nitrogen 26 mg/dL (8-23); Calcium 8.9 mg/dL (8.5-10.5); Carbon Dioxide 30 mmol/L (22-29); Chloride 102 mmol/L (98-107); Glucose 109 mg/dL (65-115); Osmolality Calculated 295 mOsm/kg (285-295); Potassium 4.3 mmol/L (3.5-5.1); Sodium 140 mmol/L (136-145)
--- NOTE | 2025-05-15 09:17 | PC.NURSE ---
reposition in bed abg done placed on heated high flow to do oral care and give what po meds she could take , small amts of water given , responds to questions appropriately unable to drink enough to take po K.. doctor aware will replace iv , roxinol not given at this time . is somewhat somolent
[2025-05-15] MEDS: water for injection-sterile 10 ML 10000 ML (12:06)
[2025-05-15] MEDS: morphine 10 mg/0.5 mL oral liq UD 5 MG PO ×3 (12:08→21:49)
--- NOTE | 2025-05-15 13:27 | P.PN_ITS ---
Subjective 2 Subjective: Patient resting comfortably on BiPAP. Overnight physician reported that nursing so they were having trouble keeping the BiPAP on. However the day nurse did not describe this to me. Patient was able to take her oral spironolactone and Zaroxolyn being transferred to another oxygen source for a few moments. Family: was not present for exam this morning. I talked to them in the hallway. Oxygen: BiPAP at 70% with 16/8 pressures IV peripheral Felix: Yes Diet cardiac; has been n.p.o. since started BiPAP Medications: Reviewed: Yes Vitals/I&O/Wt Last Vital Signs Temp 97.4 F L 05/14/25 13:36 Pulse 103 H 05/15/25 11:25 Resp 23 H 05/15/25 09:00 BP 133/52 05/15/25 09:00 Pulse Ox 92 05/15/25 11:25 O2 Del Method Heated High Flow 05/14/25 07:45 O2 Flow Rate 60 05/14/25 10:54 FiO2 70 05/15/25 11:25 05/14/25 05/15/25 05/15/25 22:59 06:59 14:59 Intake Total 716.25 / 1026.25 400 / 1426.25 390 / 390 Output Total 3000 / 4750 Balance -2283.75 / -3723.75 400 / -3323.75 390 / 390 Weight last 48 hrs Weight 90 kg Weight 90.61 kg Physical Exam 2 Narrative: On BiPAP only shaking head to answer questions. She is shook her head yes that her breathing is better Heart regular rate and rhythm normal S1-S2 no murmurs clicks gallops or rubs Lungs diminished breath sounds in the bilateral bases , improved aeration superiorly Abdomen obese soft nontender nondistended positive bowel sounds Extremities diffuse edema in the upper and lower extremities ; shows minimal improvement from yesterday Urinary Catheter Management: Felix: Cath Placed During This Visit: yes Reason for Continuing Indwelling Catheter: Accurate Measurement of Urinary Output in Critically Ill Patients Urinary Catheter Date of Insertion: 05/09/25 Urinary Catheter Time of Insertion: 09:30 Data 05/15/25 08:14 05/15/25 08:14 Other Labs: MELD -Na score based on labs from 05/12/2025 is 27 A&P Assessment and plan 1. Acute respiratory failure with hypoxia: Acute hypoxic respiratory failure dyspnea associated with bilateral left greater than right recurrent pleural effusions and fluid overload. -Continue BiPAP and Roxanol 5 mg sublingual every 6 hours as needed breathlessness BiPAP settings are 70% FiO2 with inspiratory pressure of 16 and expiratory pressure of 8 - Ordered thoracentesis for tomorrow last imaging shows a left greater than right pleural effusion 2. Decompensated hepatic cirrhosis: Decompensated liver cirrhosis with anasarca. CT scan shows cirrhotic appearance of the liver with signs of portal hypertension Patient and have received extensive explanation of the following by previous physician ; liver cirrhosis, risk of complications, chronicity of condition and need for chronic follow-up. Patient had removal of 3.3 L with the addition of the Lasix drip yesterday Drained 3 L via paracentesis on 05/09/2025 3. Anasarca: 4. Ascites: S/p paracentesis 05/09/2025 with removal of 3 L of fluid. Currently covered with antibiotics. However ascitic fluid cultures are negative. 5. Community acquired pneumonia: Possible in the differential. May all be related to pleural effusions and anasarca. 6. Acute anemia: Low hemoglobin; chronic low-level blood loss suspected; patient signs of overt gastrointestinal bleeding. - receibed 1 unit prbc on 05/09/2025 for hemoglobin of 6.4. Subsequent hemoglobins are ranging between 7.6 and 8.0. - hgb has been stable the last 4 days - may need EGD - CONTINUE PROTONIX 40 IV BID - microcytic anemia, likley iron deficient and anemia of blood loss - Iron studies were ordered however this was after receiving a blood transfusion so it may not be accurate - Previous hospitalist had discussed with surgery regarding possible EGD however currently too unstable to have the same signs requiring high flow oxygen, attempt to revisit later with surgery once oxygen requirements improved. Patient's stool occult is positive Plan: Patient is showing minimal improvement continue with Lasix drip and albumin. Continue Zaroxolyn and Aldactone orally as able once a day. Lab ordered for tomorrow to include PT/INR and liver function tests to recalculate MELD-Na Score. Patient would likely benefit to transfer to a facility that is able to do a liver transplant. I know that yesterday [facility] is not accepting any new patients. Will make the other phone calls later today. An update has been. In the meantime continue with continued aggressive care and plan for thoracentesis tomorrow. Elevated WBC count noted today. Will broaden spectrum of antibiotics. PDMP PDMP Reviewed: Not Reviewed Attestations 2 Medical Necessity Statement*: Decompensated liver failure and worsening acute hypoxic respiratory Coding Level of Care Code Acute Code for [facility] Diagnoses Acute respiratory failure with hypoxia J96.01 Decompensated hepatic cirrhosis K72.90; K74.60 Anasarca R60.1 Ascites R18.8 Community acquired pneumonia J18.9 Acute anemia D64.9
--- NOTE | 2025-05-15 15:04 | PC.NURSE ---
very restless and pulling at mask noted decrease sats oral care done Dr here one time dose roxinol given
[2025-05-16] VITALS (89 sets, daily range): BP systolic 93–157; BP diastolic 38–78; PULSE 72–107; RESP 10–30; TEMP 36.8–37.3; O2SAT 83–100
[2025-05-16] MEDS: albumin 25 G/100 ML BAG 60 G IV ×4 (00:13→23:44)
--- NOTE | 2025-05-16 01:57 | PC.NURSE ---
Pt more active, moving arms and with movement has desatted to 84-87%. Pt verbalized discomfort. Contacted Dr. Sandoval and made aware, order received for additional dose of roxanol 5 mg.
[2025-05-16] MEDS: morphine 10 mg/0.5 mL oral liq UD 5 MG PO ×3 (02:01→09:07)
[2025-05-16 04:03] LABS: Hematocrit 24.6 % (36-47); Hemoglobin 7.00 g/dL (11.27-16.99); Mean Corpuscular HGB Conc 28.5 g/dL (30-55); Mean Corpuscular Hemoglobin 24.3 pg (27-33); Mean Corpuscular Volume 85.4 fl (85-98); Nucleated Red Blood Cells % 0.1 %; Platelet Count 35 10^3/cmm (157-399); Red Blood Count 2.88 10^6/uL (3.85-5.65); White Blood Count 14.06 10^3/uL (3.29-11.43)
[2025-05-16] MEDS: potassium chloride oral liq 20 mEq/15 mL UDC 40 MEQ PO (04:05)
[2025-05-16] MEDS: thiamine 100 mg/mL 2mL SDV IVP (04:05)
[2025-05-16 04:17] LABS: Prothrombin Time 58.40 SECONDS (12.1-14.9)
[2025-05-16 04:24] LABS: Alanine Aminotransferase 20 U/L (0-33); Albumin Level 3.6 g/dL (3.5-5.2); Alkaline Phosphatase 78 U/L (35-105); Anion Gap 12.9 (5-19); Aspartate Amino Transferase 60 U/L (0-32); Blood Urea Nitrogen 31 mg/dL (8-23); Calcium 9.1 mg/dL (8.5-10.5); Carbon Dioxide 30 mmol/L (22-29); Chloride 101 mmol/L (98-107); Globulin 2.1 g/dL (1.3-4.6); Glucose 104 mg/dL (65-115); Magnesium 1.8 mg/dL (1.7-2.3); Osmolality Calculated 297 mOsm/kg (285-295); Potassium 3.9 mmol/L (3.5-5.1); Sodium 140 mmol/L (136-145); Total Protein 5.7 g/dL (6.6-8.7)
[2025-05-16 04:55] LABS: INR 6.28 (0.8-1.2)
[2025-05-16] MEDS: phytonadione (ADULT) 5 MG in sodium chloride 0.9% 50 ML 151.5 MG IV ×2 (05:48→11:09)
[2025-05-16] MEDS: meropenem 1,000 mg SDV 1000 MG IVP ×3 (05:59→22:00)
[2025-05-16] MEDS: hydrocortisone 100 mg/2 mL SDV IVP ×3 (05:59→22:00)
[2025-05-16] MEDS: folic acid 5 mg/ml MDV 10mL 1 MG IV (06:30)
--- NOTE | 2025-05-16 08:41 | P.PN_ITS ---
Subjective 2 Subjective: Silvia Mcneal is a 64 year old female with past medical history of diabetes type 2, alcohol abuse, presents initially to the hospital with increased swelling. Was only very edematous with ascites and hypoxemia. Currently on 8 L mid flow. She had a CT scan of the chest that showed bilateral pleural effusions as well as a large ascites. She had paracentesis done with 3 L of fluid removed. She has also received 1 unit of packed red blood cells for low hemoglobin of 6.4 no obvious signs of bleeding. Diagnosed with esophageal varices probable source. Although she is noted to have black tarry stools. 05/11/25 Less hypoxia. on 6L NC. less shortness of breath 05/12/25 40L/55%, dyspnea. black tarry stools. 05/13/2025 Patient feels more short of breath today. also higher oxygen requirement. Hyponasal cannula 60 L / 70% FiO2. Satting 91% 05/16/2025 Patient decompensated over the weekend. Has been on BiPAP the whole time. Unresponsive this morning urgently getting intubated. Not on any drips other than Lasix minimal urine output. Vitals/I&O/Wt Last Vital Signs Temp 98.8 F 05/16/25 00:00 Pulse 94 05/16/25 08:00 Resp 22 H 05/16/25 08:00 BP 107/39 05/16/25 08:00 Pulse Ox 91 05/16/25 08:00 O2 Del Method BiPAP 05/16/25 08:00 O2 Flow Rate 60 05/14/25 10:54 FiO2 80 05/16/25 08:00 05/15/25 05/16/25 05/16/25 22:59 06:59 14:59 Intake Total 187.333 / 577.333 150 / 727.333 Output Total 1300 / 1300 Balance -1112.667 / -722.667 150 / -572.667 Weight last 48 hrs Weight 197 lb 5.019 oz Weight 198 lb 6.656 oz Physical Exam 2 Narrative: Per RN General: alert, NAD HEENT: EOMI Pulmonary: Diminished breath sounds bilaterally Cardiovascular: rrr, nl s1s2, Abdomen: soft, nt, nd, no r/g, Extremities: no edema Neurologic: grossly intact Agree with above exam Urinary Catheter Management: Felix: Cath Placed During This Visit: yes Reason for Continuing Indwelling Catheter: Accurate Measurement of Urinary Output in Critically Ill Patients Urinary Catheter Date of Insertion: 05/09/25 Urinary Catheter Time of Insertion: 09:30 Data 05/16/25 03:27 05/16/25 03:27 A&P Assessment and plan 1. Community acquired pneumonia: 2. Acute hypoxemic respiratory failure: 3. Pleural effusion: Plan: # Acute hypoxic respiratory failure most likely secondary to volume overload as well as ascites. - Discussed case with Dr. Sandoval - Currently getting intubated, appreciate anesthesia help. - Continue vent support as tolerated. # Recurrent bilateral pleural effusion likely due to ascites right more than left.. Status post paracentesis 3 L removed. - CXR reviweed today personally 05/11/25- pleural fluid decreased on the right lung - Chest CT reviewed from today 05/13/2025-reaccumulated right pleural effusion large along with ascites as well this extensive left lung infiltrates.-Pneumonia versus ARDS Versus pulmonary hemorrhage secondary to thrombocytopenia - Reviewed chest x-ray postintubation today. # Bilateral pneumonia versus pulmonary edema Patient does not have a fever or raise white count although underlying aspiration episodes cannot be ruled out. Continue broad-spectrum antibiotics vancomycin and continue cefepime. # ascites Status post paracentesis 3 L removed. Will schedule paracentesis and thoracentesis although INR is very high 6.28. May need indwelling peritoneal catheters # Decompensated hepatic cirrhosis Avoid Tylenol, NSAIDs or propofol Continue cefepime Trend LFTs as well as PT/INR-reordering today. May need plasma if above 5. MELD score is 29-very high risk of mortality. Will get hepatitis panel as well.-Pending reviewed labs 05/16/2025 She will need emergent liver transplant evaluation. Discussed with Dr. Sandoval and Dr. Walker for transfer to [place]. - Started steroids and florinef -Will start lactulose and rifaximin as well, check ammonia levels # Volume load and anasarca Continue Lasix and spironolactone, watch urine output and creatinine currently stable at 1.0-05/16/2025 although mildly low GFR # Anemia-possible acute blood loss. Currently 7.8 today . She may need an EGD but respiratory status is not stable yet. May need to be intubated if she has to undergo EGD. Blood thinners on hold. Platelets being given currently. continue IV Protonix twice daily # Alcohol abuse As needed Ativan as needed. Continue multivitamin and thiamine # Thrombocytopenia Most likely secondary to decompensated liver cirrhosis. # Alcohol abuse Will need DOUBLE CUT SAWYER consult postdischarge Couneselled her to avoid alcohol CODE STATUS-full The high probability of a clinically significant, sudden or life threatening deterioration of the patient's [Respiratory, cardiac and renal] system(s) required my full and direct attention, intervention and personal management. The critical care time is as shown. This time is in addition to time spent performing any reported procedures but includes the following: [x] Data and vital sign review and interpretation [x] Patient assessment, examination and intervention [x] Documentation [x] Medication orders and management Critical Care Time (min): 35 Telemedicine Consent Patient seen today via Telemedicine by agreement and consent of patient.? Telemedicine technology used during the visit includes audio and, as available, review of images.? The patient encounter is appropriate and reasonable under the circumstances given the patient?s particular presentation at this time.? The patient has been advised of the potential risks and limitations of this mode of treatment (including but not limited to the absence of in-person examination) and has agreed to be treated in a remote fashion in spite of them.? Any, and all, of the patient?s/patient?s family?s questions on this issue have been answered and I have made no promises or guarantees to the patient.. PDMP PDMP Reviewed: Not Reviewed Attestations 2 Medical Necessity Statement*: mechanical ventillation Coding Level of Care Code Acute Code for [facility] Fwd Diagnoses Community acquired pneumonia J18.9 Acute hypoxemic respiratory failure J96.01 Pleural effusion J90
--- NOTE | 2025-05-16 08:49 | XR_ITS ---
WS: [id number] XR chest 1V portable [id number] REASON FOR EXAM: intubation FINDINGS: The endotracheal tube placement has the tip within the right mainstem bronchus. The right lung is more expanded than on the previous examination of 05/10/2025. Relatively well expanded. Nasogastric tube with the tip beyond the gastroesophageal junction not visualized. Diffuse alveolar and interstitial lung opacities are present with air bronchograms. Lung opacities have increased in severity compared to the previous examination. Bilateral pleural effusions, likely unchanged compared to the previous study. XR/XR chest 1V portable [id number] IMPRESSION: Abnormal chest as above.
[2025-05-16] MEDS: propofol 10 mg/mL SDV 20 mL 200 MG (09:08)
[2025-05-16] MEDS: etomidate 10 ML 1 MG (09:08)
[2025-05-16] MEDS: succinylcholine 20 mg/mL SDV 10mL 200 MG (09:08)
--- NOTE | 2025-05-16 09:10 | PM.ACPR ---
Procedure/Consent Time out: Time Out Performed: Yes Consent: Consent for Procedure: Consent obtained from other (indicate) () and Agrees to proceed with procedure Procedure Narrative: My attention was called about 30 minutes ago to patient's reported to be having increasing difficulty breathing. She is currently on BiPAP, the setting of which has been maxed out. Patient saturating in the 80s. She is also tachypneic, will respiratory rate of about 30 breaths/min. Review of her note revealed that she is a 64-year-old female with chronic liver disease, with associated ascites, pleural effusion, and severe thrombocytopenia. I reviewed patient's recent chest imagings (CTA & CXR), which shows apparent massive pleural effusion on the right, with remarkable lobar consolidations on the upper left lung area. This signifies remarkably compromised respiratory capacity/volume, thereby signifying/indicating need for some more positive ventilation. After due considerations, including review of patient's comorbidities and concomitant symptoms, decision was taking to intubate and mechanically ventilate patient urgently. The anesthesiologist was called, who, and subsequently and successfully intubated patient. Thereafter, upon exam, on chest auscultation there is bilateral equal air entry anteriorly. I noted the patient is severely dehydrated, with very dry mucous membrane and remarkable wrinkling of the extremities from recent diuresis, but with increased skin turgor. She has only out about 350 cc of urine last night. She has been n.p.o., and has not been drinking, with no IV fluid going on for the past 24 hours. The BP dropped to the 80s/50s postintubation. Consequently, I ordered for 500 cc of bolus with saline, to be followed by normal saline infusion at 80 cc/h. I am also going to give patient 25 g of albumin, while starting her on Levophed. Further plans to be adjusted as clinical picture evolves. Otherwise, Dr. Ely is going to be here later in the day, and will take over care at 10.00 a.m. Also, I spoke briefly via videoconference with Dr. Prather, the party supply specialist, who agreed with the above-mentioned treatment plans. In the meantime, further plans will be adjusted as clinical picture evolves. Acute Procedures Epistaxis Control: Time out performed: Yes
--- NOTE | 2025-05-16 09:21 | XR_ITS ---
WS: [id number] XR chest 1V portable [id number] REASON FOR EXAM: Post PICC insertion FINDINGS: Right arm PICC line placement. Tip of the catheter is at the level of the distal SVC. It was recommended to advance an additional centimeter. Catheter position and advancement discussed with the rn radiology over the phone at 04/02/2025. The endotracheal tube and has been retracted to the level of the arnold compared to the examination of 9:55 a.m. 05/16/2025. Again are noted in the diffuse severe interstitial and airspace lung opacities.. XR/XR chest 1V portable [id number] IMPRESSION: Right arm PICC line placement as above. The catheter is ready for use.
[2025-05-16] MEDS: propofol 1,000 MG/100 ML INJ 2.69 MG IV (09:22)
[2025-05-16 09:24] LABS: Hematocrit 23.3 % (36-47); Hemoglobin 6.60 g/dL (11.27-16.99); Mean Corpuscular HGB Conc 28.3 g/dL (30-55); Mean Corpuscular Hemoglobin 24.5 pg (27-33); Mean Corpuscular Volume 86.6 fl (85-98); Nucleated Red Blood Cells % 0.2 %; Platelet Count 34 10^3/cmm (157-399); Red Blood Count 2.69 10^6/uL (3.85-5.65); White Blood Count 10.99 10^3/uL (3.29-11.43)
[2025-05-16 09:39] LABS: ABG PCO2 52.1 mmHg (35-45); ABG PH Result 7.35 (7.35-7.45); Alveolar-Arterial Oxygen Gradi 77.9 mmHg (5-10); Arterial Blood Gas Hematocrit 21.3 % (37-47); Blood Gas Allen Test Pos; Blood Gas Operator Identificat CAK; Blood Gas Sample Site Radial, left; Blood Gas Sample Type Arterial; Blood Gas Tidal Volume 0.40; Carboxyhemoglobin 1.9 %THgb (0.4-20.1); Glucose Level-ABG 102.0 mg/dL (70-115); HCO3 ABG 28.7 mmol/L (22-26); Ionized Calcium Level - ABG 1.2 mmol/L (1.1-1.4); Methemoglobin 1.4 % (0.4-1.5); Oxygen Saturation ABG 89.9; PEEP 10.0 cmH20; PO2 ABG 57.6 mmHg (80.0-100.0); PO2 FiO2 Ratio Arterial Blood 57; Potassium Level - ABG 4.0 mmol/L (3.5-5.0); Sodium Level - ABG 141.0 mmol/L (131-143)
[2025-05-16 09:39] LABS: Prothrombin Time 59.60 SECONDS (12.1-14.9)
[2025-05-16] MEDS: norepinephrine 4 MG/250 ML BAG 7.5 MG IV (09:40)
--- NOTE | 2025-05-16 09:41 | ANES.PROC ---
Anesthesia Procedures Procedure/Date: 05/16/25 Intubation: Time Out Performed: Yes Consent: requested by attending/covering physician Sedative (amount): etomidate (10 mg etomidate and 40 of propofol given prior to paralytic) Paralytic (amount): succinylcholine Laryngoscope: Vianca ET Tube Size: 8 ET Tube Uncuffed: Yes Tube Secured Depth (cm): 24 Tube Secured Location: lips Tube Placement Confirmation: visualized tube passing through cords, equal breath sounds bilaterally and color change noted Patient Tolerated Procedure: well and no complications
[2025-05-16 09:44] LABS: Alanine Aminotransferase 19 U/L (0-33); Albumin Level 3.1 g/dL (3.5-5.2); Alkaline Phosphatase 71 U/L (35-105); Anion Gap 13.1 (5-19); Aspartate Amino Transferase 59 U/L (0-32); Blood Urea Nitrogen 29 mg/dL (8-23); Calcium 9.0 mg/dL (8.5-10.5); Carbon Dioxide 28 mmol/L (22-29); Chloride 102 mmol/L (98-107); Creatinine Clr Calc Pharmacy 58.2216; Globulin 2.1 g/dL (1.3-4.6); Glucose 107 mg/dL (65-115); Osmolality Calculated 294 mOsm/kg (285-295); Potassium 4.1 mmol/L (3.5-5.1); Sodium 139 mmol/L (136-145); Total Protein 5.2 g/dL (6.6-8.7)
[2025-05-16 09:49] LABS: Slide Review Slide Review Perform
[2025-05-16 09:51] LABS: Ammonia 55 umol/L (11-51)
[2025-05-16 09:52] LABS: INR 6.44 (0.8-1.2)
--- NOTE | 2025-05-16 10:08 | PC.NURSE ---
Patient's O2 stat was in the low 80s. Patient was lethargic and not able to clear airway effectively. Dr. Walker was contacted and he ordered to Intubate. 0840: time out was called with Vinay Dugan Respiratory therapist, Ailyn RN. 0847: Propofol [address] Rodriguez and Etomidate 10 mg 0848:100 mg of Succinylcholine 0849: Intubated successfully with color change 0850: OG placed 0852: X-Ray was obtained
--- NOTE | 2025-05-16 11:02 | PICC.NOTE ---
Triple lumen PICC placed to right basilic vein. Referred to vascular access nurse for PICC placement due to need for vasopressors. Unable to reach pt spouse by phone prior to procedure. Urgent consent given via Dr. Walker. Right arm assessed with right basilic vein measuring 4.0 mm, straight, and apparent best choice for placement. Using sterile technique and MST, right basilic vein accessed x 1 stick. Mid-arm circumference measured 10 cm from right AC 31 cm. Trimmed cath 38 cm with 0 cm external length noted. CXR shows tip in distal SVC, in good position for use per radiologist. Line secured with stat-lock. Insertion site covered with Biopatch and TSM. Report given to bedside nurse, Ricky, RN.
[2025-05-16] MEDS: fentaNYL 1,000 MCG/100 ML BAG 2.5 MCG IV (11:18)
--- NOTE | 2025-05-16 12:42 | USCV_ITS ---
Silvia Mcneal Age: 64 Gender: F : 1960 Exam Date: 05/16/2025 15:03 Ordering Phys: Abimael Ely MD Technologist: RUSLAN Exam Location: [facility] [place] Indication: chf BP: 122 / 49 HR: 76 Rhythm: Sinus Technical Quality: Adequate MEASUREMENTS (Male / Female) Normal Values 2D ECHO LV Diastolic Diameter PLAX 5.5 cm 4.2 - 5.9 / 3.9 - 5.3 cm IVS Diastolic Thickness 0.8 cm 0.6 - 1.0 / 0.6 - 0.9 cm IVS Systolic Thickness 1.0 cm LVPW Diastolic Thickness 1.0 cm 0.6 - 1.0 / 0.6 - 0.9 cm LVPW Systolic Thickness 1.0 cm LVOT Diameter 2.0 cm LV Ejection Fraction 2D Teich 36.2 % LV Ejection Fraction MOD 4C 68.6 % LV Ejection Fraction MOD 2C 63.6 % LV Ejection Fraction 2C AL 65.7 % LA Diameter 3.7 cm RA Systolic Volume 4C AL 38.8 ml RA Systolic Volume 4C MOD 37.1 ml LA Sys Volume AL 53.4 cm cubed LA Sys Volume Index AL 25.8 cm cubed/m squared Aorta at Sinotubular Diameter 2.8 cm IVC Diameter 2.2 cm M-MODE LA Ao Ratio MM 1.3 AV Cusp Separation MM 1.8 cm DOPPLER AV Peak Velocity 200.0 cm/s LVOT Peak Velocity 158.0 cm/s AV Area Cont Eq vti 2.7 cm squared AV Area Cont Eq pk 2.6 cm squared MV Peak Velocity 150.0 cm/s MV Area PHT 3.3 cm squared Mitral E to A Ratio 1.2 TV Peak Velocity 160.0 cm/s TR Peak Velocity 265.0 cm/s TR Peak Gradient 28.1 mmHg TV Peak E Velocity 91.0 cm/s PV Peak Velocity 117.0 cm/s FINDINGS Left Ventricle Normal left ventricular size, systolic function and wall thickness, with no regional wall motion abnormalities. Left ventricular ejection fraction is estimated at 60 %. Grade II/IV diastolic dysfunction, moderately elevated filling pressures. Right Ventricle Normal right ventricular size and systolic function. Right Atrium Normal right atrial size. Left Atrium Normal left atrial size. IA Septum Normal appearance of the interatrial septum. Mitral Valve Mildly thickened mitral valve. No mitral valve stenosis. Mild mitral valve regurgitation. Aortic Valve Mild aortic valve calcification. No aortic valve stenosis. Trace aortic valve regurgitation. Tricuspid Valve Normal tricuspid valve structure. No tricuspid valve stenosis or regurgitation. Normal pulmonary pressure. Pulmonic Valve Normal pulmonic valve structure. No pulmonic valve stenosis or regurgitation. Pericardium No pericardial effusion. Aorta Normal diameter of the aortic root and ascending thoracic aorta. IVC Normal IVC diameter. CONCLUSIONS Normal left ventricular size, systolic function and wall thickness, with no regional wall motion abnormalities. Left ventricular ejection fraction is estimated at 60 %. Grade II/IV diastolic dysfunction, moderately elevated filling pressures. Mild aortic valve calcification. No aortic valve stenosis. Trace aortic valve regurgitation. Mildly thickened mitral valve. No mitral valve stenosis. Mild mitral valve regurgitation. There is no pericardial effusion. Right atrial pressure is around 5 mm of mercury. Jose Keating MD (Electronically Signed) Final Date: 16 May 2025 19:24 S
[2025-05-16 13:02] LABS: Procalcitonin 0.86 ng/mL (0-0.5); Thyroid Stimulating Hormone 2.17 uIU/mL (0.27-4.20)
[2025-05-16 13:13] LABS: Iron 19 ug/dL (37-145); Total Iron Binding Capacity 128 mcg/dl; Unsaturated Iron Binding 109 ug/dL (112-347)
[2025-05-16 13:14] LABS: Vitamin B12 > 2000 pg/mL (232-1245)
[2025-05-16 13:33] LABS: Glucose Urine UA Negative (Normal); Nitrate Urine Negative (Negative); Specific Gravity, Urine 1.017 (1.005-1.030)
[2025-05-16 13:35] LABS: Add Urine Microscopic? YES; Universal Test for UA Present (0)
[2025-05-16] MEDS: vasopressin 40 UNIT/100 ML PREMIX IV (13:39)
[2025-05-16 13:50] LABS: Potassium, Radom Urine 52 mmol/L; Urine Random Chloride 59 mmol/L; Urine Random Sodium 38 mmol/L
[2025-05-16] MEDS: fluconazole premix 100 MG in empty flexible container 1 EACH 50 MG IV (13:51)
[2025-05-16 13:56] LABS: UA Manual Slide Review YES
[2025-05-16] MEDS: propofol 1,000 MG/100 ML INJ 21.48 MG IV ×3 (13:59→23:58)
[2025-05-16 14:43] LABS: MRSA PCR OZH (swab) NOT DETECTED (Not Detecte)
[2025-05-16 14:56] LABS: ABG PCO2 49.3 mmHg (35-45); ABG PH Result 7.35 (7.35-7.45); Alveolar-Arterial Oxygen Gradi 39.6 mmHg (5-10); Arterial Blood Gas Hematocrit 21.4 % (37-47); Blood Gas Allen Test Pos; Blood Gas Operator Identificat CAK; Blood Gas Sample Site Radial, left; Blood Gas Sample Type Arterial; Blood Gas Tidal Volume 0.40; Carboxyhemoglobin 2.0 %THgb (0.4-20.1); Glucose Level-ABG 113.0 mg/dL (70-115); HCO3 ABG 27.3 mmol/L (22-26); Ionized Calcium Level - ABG 1.2 mmol/L (1.1-1.4); Methemoglobin 1.6 % (0.4-1.5); Oxygen Saturation ABG 93.6; PEEP 12.0 cmH20; PO2 ABG 65.8 mmHg (80.0-100.0); PO2 FiO2 Ratio Arterial Blood 109; Potassium Level - ABG 3.9 mmol/L (3.5-5.0); Sodium Level - ABG 142.0 mmol/L (131-143)
--- NOTE | 2025-05-16 15:04 | PC.NURSE ---
Dr. Ely ordered to bladder scan the patient. Patient had 72 mls of urine in the bladder.
--- NOTE | 2025-05-16 15:20 | PC.NURSE ---
Dr. Ely ordered to titrate the lasix drip up to 20 mg/hr.
[2025-05-16] MEDS: FUROsemide 10 mg/mL SDV 10mL 100 MG IVP (15:35)
--- NOTE | 2025-05-16 17:08 | PM.PN ---
Subjective Subjective: Hospital course, labs appreciated. Today morning patient seen slightly confused on 100% FiO2 BiPAP ventilation after which she was intubated on mechanical ventilator currently 100%. She is on 10 of Levophed, 10 of IV Lasix along with 100 cc of IV fluid. Currently on 100% FiO2, 10 of PEEP, 400 tidal volume. Appreciate urine output. Family at bedside. Medications: Reviewed: Yes Vitals/I&O/Wt Last Vital Signs Temp 98.8 F 05/16/25 17:02 Pulse 76 05/16/25 17:02 Resp 21 H 05/16/25 17:02 BP 112/49 05/16/25 17:02 Pulse Ox 92 05/16/25 17:02 O2 Del Method Mechanical Ventilation 05/16/25 14:00 O2 Flow Rate 60 05/14/25 10:54 FiO2 60 05/16/25 16:41 05/16/25 05/16/25 05/16/25 06:59 14:59 22:59 Intake Total 150 / 624.689 4996.585 / 2033.585 258.667 / 2292.252 Output Total 175 / 175 Balance 150 / -635.054 8983.585 / 2033.585 83.667 / 2117.252 Weight last 48 hrs Weight 89.5 kg Weight 90 kg Physical Exam Narrative: General: Sedated, intubated HEENT: PERRLA, pupils bilaterally equal and reactive Chest: Bilateral bronchial breath sounds all lung shanks, decreased air entry all over lung shanks, coarse to fine crackles diffuse CVS: S1-S2 regular, no murmurs, no tachycardia, no gallops, no rubs Abdomen: Soft, nontender, no organomegaly, bowel sounds present Neuro: Intubated, sedated Generalized anasarca with weeping through the skin Urinary Catheter Management: Felix: Cath Placed During This Visit: yes Reason for Continuing Indwelling Catheter: Accurate Measurement of Urinary Output in Critically Ill Patients Urinary Catheter Date of Insertion: 05/09/25 Urinary Catheter Time of Insertion: 09:30 Data 05/16/25 09:15 05/16/25 09:15 Micro: Microbiology 05/16/25 12:53 Bacterial Antigens - Final Urine Kidney 05/16/25 09:25 Gram Stain - Final Sputum - Endotracheal Tube Aspirate 05/11/25 09:28 Blood Culture - Final Blood NO GROWTH AFTER 5 DAYS 05/11/25 09:28 Blood Culture - Final Blood NO GROWTH AFTER 5 DAYS A&P Assessment and plan 1. Shock: 2. ARDS (adult respiratory distress syndrome): 3. Acute respiratory failure with hypoxia: Acute hypoxic respiratory failure dyspnea associated with bilateral left greater than right recurrent pleural effusions and fluid overload. -Continue BiPAP and Roxanol 5 mg sublingual every 6 hours as needed breathlessness BiPAP settings are 70% FiO2 with inspiratory pressure of 16 and expiratory pressure of 8 - Ordered thoracentesis for tomorrow last imaging shows a left greater than right pleural effusion 4. Hepatorenal syndrome: 5. Supratherapeutic INR: 6. Acute anemia: Low hemoglobin; chronic low-level blood loss suspected; patient signs of overt gastrointestinal bleeding. - receibed 1 unit prbc on 05/09/2025 for hemoglobin of 6.4. Subsequent hemoglobins are ranging between 7.6 and 8.0. - hgb has been stable the last 4 days - may need EGD - CONTINUE PROTONIX 40 IV BID - microcytic anemia, likley iron deficient and anemia of blood loss - Iron studies were ordered however this was after receiving a blood transfusion so it may not be accurate - Previous hospitalist had discussed with surgery regarding possible EGD however currently too unstable to have the same signs requiring high flow oxygen, attempt to revisit later with surgery once oxygen requirements improved. Patient's stool occult is positive 7. Thrombocytopenia: 8. Decompensated hepatic cirrhosis: Decompensated liver cirrhosis with anasarca. CT scan shows cirrhotic appearance of the liver with signs of portal hypertension Patient and have received extensive explanation of the following by previous physician ; liver cirrhosis, risk of complications, chronicity of condition and need for chronic follow-up. Patient had removal of 3.3 L with the addition of the Lasix drip yesterday Drained 3 L via paracentesis on 05/09/2025 9. Anasarca: 10. Ascites: S/p paracentesis 05/09/2025 with removal of 3 L of fluid. Currently covered with antibiotics. However ascitic fluid cultures are negative. 11. Community acquired pneumonia: Possible in the differential. May all be related to pleural effusions and anasarca. 12. Diabetes type 2, uncontrolled: 13. Pleural effusion: 14. Hyperammonemia: 15. Goals of care, counseling/discussion: Plan: 64-year-old admitted to the hospital more than 7 days ago with respiratory failure, anasarca found to have acute liver cirrhosis with concerns for varices and hepatosplenomegaly. Patient was BiPAP dependent for last 48 hours with FiO2 requirements up to 100% with saturations mostly in 80%. Patient was eventually intubated on 05/16 for respiratory failure. Acute hypoxic respiratory failure: Multifactorial. Concern for fluid overload with concerns for hepatorenal syndrome, concern for possible bilateral pneumonia along with ARDS and bilateral pleural effusion. Daily ABG. Supplementation keeping saturation over 88%. Repeat ABG in the afternoon. Wean FiO2 accordingly. Pulmicort twice daily, DuoNeb every 6 hour. Patient already on Lasix drip. DC IV fluids. Depending on the urine output can plan for further Lasix bolus. If no good urine output by afternoon will plan to consult nephrology for possible need of dialysis. Patient for now overall around 6.5 L negative. Follow-up sputum culture. Follow-up blood culture. Trend procalcitonin. Check MRSA swab. For now continue with IV meropenem and vancomycin. Will add fluconazole given concerns for liver cirrhosis will cover for with antifungals also. Decompensated hepatic cirrhosis: Most likely with concerns for alcoholic in nature. Supratherapeutic INR. MARY ANN D score?33. Check LDH, GGT, ammonia level. CT abdomen pelvis when possible. Supratherapeutic INR: INR of 6.44. In setting of hepatic cirrhosis. Associated with thrombocytopenia and anemia. No active site of bleeding for now. IV vitamin K 5 mg one-time. Repeat INR in 2 hours. 2 units of FFP. If not improving will repeat vitamin K. Thrombocytopenia: Most likely in setting of acute illness along with thrombocytopenia. Given worsening anemia for now we will transfuse 2 unit of platelets. Anemia: Check iron panel, vitamin B-12, folate level, DIC panel, haptoglobin, reticulocyte count. 2 weeks of blood transfusion. Target hemoglobin around 8. Patient is hemodynamically unstable for now. Shock: Currently on Levophed. Wean Levophed keeping mean artery pressure over 65. Continue with IV hydrocortisone 100 mg every 8 hourly. Hold off on fludrocortisone for now. Concern for hepatorenal syndrome: Patient already on IV albumin, Levophed. Will add low-dose vasopressin. Monitor BMP daily. If urine output continues to remain low we will plan to consult nephrology for possible dialysis. Dialysis catheter placement would be difficult given concern for supratherapeutic INR and thrombocytopenia. Had extensive goals of care discussion with patient's spouse at bedside. We discussed unfortunately patient has severely poor prognosis given ARDS like picture, acute respiratory failure, shock, acute liver cirrhosis with concern for hepatorenal syndrome. We discussed there is a high chance of mortality. Discussed even if she survives there is a high risk of multiple admissions, slow improvement and prolonged course. verbalized understanding and wants to continue with current line of treatment. He wants to continue with aggressive treatment for now. Discussed CODE STATUS. He wants patient to remain full code. He understands in view of chest compression there is a high risk of further worsening fibrosis. Given need for administration specialist, director of business services discussed for possible transfer to a tertiary center. wants patient to be transferred to the [place] area if possible. Will try to reach out to [facility] in [place] for possible administration specialist and director of business services with need for possible liver transplant. Poor prognosis Full code N.p.o. for now. Start on tube feeds with Nepro. IV Protonix 40 mg twice daily. SCD for DVT prophylaxis PDMP PDMP Reviewed: Not Reviewed Attestations Medical Necessity Statement*: Requires further hospitalization for management of respiratory failure, shock, acute liver cirrhosis with supratherapeutic INR, thrombocytopenia, anemia, hepatorenal syndrome, ARDS Coding Level of Care Code Critical Care >/= 30 minutes Critical care time (in minutes): 75 The high probability of a clinically significant, sudden or life threatening deterioration, as referenced in this documentation, required my full and direct attention, intervention and personal management. The critical care time shown is in addition to time spent performing any reported separately billable procedures and includes the following: [x] Data and vital sign review and interpretation [x] Patient assessment, examination and intervention [x] Medication orders and management [x] Patient/Family updates as able [x] Care Coordination and Documentation. Other Coding Information This patient has a high probability of clinically significant, sudden or life threatening deterioration of the patient's (neurological/pulmonary/cardiac/renal/ID/endocrine) systems required my full, direct attention, the highest level of physician preparedness for urgent intervention and personal management. I managed/supervised life or organ supporting interventions that required frequent physician assessment. I devoted my full attention in the ICU to the direct care of this patient for the period of time indicated above. Time I spent with family or surrogate(s) is included only if the patient was incapable of providing necessary information or participating in decision making. This time includes the following services provided: Telemetry review Mechanical Ventilation Hemodynamic interpretation, assessment and management Review and interpretation of CXR Review and interpretation of lab values Review and interpretation of microbiologic data and culture results Review of medications and administration Review and interpretation of Nutrition requirements and management Discussion of management with other consultants and services Clinical update to family members Diagnoses Shock R57.9 ARDS (adult respiratory distress syndrome) J80 Acute respiratory failure with hypoxia J96.01 Hepatorenal syndrome K76.7 Supratherapeutic INR R79.1 Acute anemia D64.9 Thrombocytopenia D69.6 Decompensated hepatic cirrhosis K72.90; K74.60 Anasarca R60.1 Ascites R18.8 Community acquired pneumonia J18.9 Diabetes type 2, uncontrolled Pleural effusion J90 Hyperammonemia E72.20 Goals of care, counseling/discussion Z71.89
[2025-05-16] MEDS: lactulose oral liq 20 gm/30 mL UDC 10 GM OG-TUBE ×2 (17:32→23:44)
[2025-05-16] MEDS: pantoprazole 40 mg SDV IVP (17:33)
[2025-05-16 18:19] LABS: Reflex FDPQ test REFLEX FDP QUEST TES
[2025-05-16 18:23] LABS: Hematocrit 22.5 % (36-47); Hemoglobin 6.60 g/dL (11.27-16.99); Mean Corpuscular HGB Conc 29.3 g/dL (30-55); Mean Corpuscular Hemoglobin 25.0 pg (27-33); Mean Corpuscular Volume 85.2 fl (85-98); Nucleated Red Blood Cells % 0.2 %; Platelet Count 74 10^3/cmm (157-399); Red Blood Count 2.64 10^6/uL (3.85-5.65); White Blood Count 11.67 10^3/uL (3.29-11.43)
[2025-05-16 18:43] LABS: INR 3.18 (0.8-1.2); Prothrombin Time 34.30 SECONDS (12.1-14.9)
[2025-05-16 18:44] LABS: Partial Thromboplastin Time 52.7 SECONDS (23.9-36.7)
[2025-05-16 18:46] LABS: Alanine Aminotransferase 17 U/L (0-33); Albumin Level 3.4 g/dL (3.5-5.2); Alkaline Phosphatase 75 U/L (35-105); Anion Gap 19.0 (5-19); Aspartate Amino Transferase 52 U/L (0-32); Blood Urea Nitrogen 35 mg/dL (8-23); Calcium 8.9 mg/dL (8.5-10.5); Carbon Dioxide 24 mmol/L (22-29); Chloride 104 mmol/L (98-107); Globulin 1.9 g/dL (1.3-4.6); Glucose 117 mg/dL (65-115); Osmolality Calculated 305 mOsm/kg (285-295); Potassium 4.0 mmol/L (3.5-5.1); Sodium 143 mmol/L (136-145); Total Protein 5.3 g/dL (6.6-8.7)
[2025-05-16 18:59] LABS: Fibrinogen 154 mg/dL (174-498)
[2025-05-16] MEDS: norepinephrine 4 MG/250 ML BAG 15 MG IV (20:00)
--- NOTE | 2025-05-16 20:03 | PC.NURSE ---
Addendum entered by Lucille Cochran RN 05/16/25 20:06: Witnessed consent of dialysis catheter placement from Ed. Original Note: Pt see by telenephrology and discussed needing dialysis. Dr. Najera came to bedside, discussed pt current condition. This nurse contacted , Steven Mcneal, made aware of plan. Discussed risks and benefits of procedure with extra emphasis on bleeding and infection. verbalized understanding of risks, consented to procedure with this nurse and Kathy Cochran RN as witness.
--- NOTE | 2025-05-16 20:08 | P.CONIM_ITS ---
Providers/Reason For Consult 2 Consulting Physician/Specialty*: Nephrology Reason for Consult*: vasyl Requesting Physician: DR Ely Attending Physician: Abimael Ely MD History of Present Illness History of Present Illness Silvia Mcneal is a 64 year old female, with a history of etoh abuse, who initially presented on 05/09/25 with respiratory failure and anasarca with sob. She was found to have acute cirrhosis with concerns for varices and hepatosplenomegaly. She was started on a lasix drip and initially diuresed well, but has become oliguric. She was BiPAP dependent for the last 48 hours with FiO2 requirements up to 100% with saturations mostly in 80%. She was intubated on 05/16 for respiratory failure. Nephrology was consulted for possible renal replacement therapy Review of Systems 2 General: Reports: ROS unobtainable due to endotracheal tube Medications/Allergies Home Medications ?Medication ?Instructions ?Recorded ?Confirmed ?Last Taken ?Type calcium carbonate 500 - 1,000 mg PO BID PRN St omach 05/09/25 05/09/25 05/08/25 History Upset hnwmqgvt-yqz-nazno ac 400 1 tab PO DAILY 05/09/25 12/07/0305/07/25 History mcg-calcium carb 500 mg-vit K1 20 mcg tablet Allergies Allergy/AdvReac Type Severity Reaction Status Date / Time amoxicillin Allergy ALGY-Difficulty Verified 08/09/22 13:24 Breathing Penicillins Allergy ALGY-Difficulty Verified 08/09/22 13:24 Breathing Current Medications Generic Name Dose Route Start Last Admin Trade Name Freq PRN Reason Stop Dose Admin Albuterol/Ipratropium 3 ml 05/10/25 06:37 05/16/25 07:44 Ipratropium-Albuterol 3 Ml Neb INHALATION 3 ml Q6H PRN Administration SHORTNESS OF BREATH Albuterol/Ipratropium 3 ml 05/16/25 14:00 05/16/25 13:09 Ipratropium-Albuterol 3 Ml Neb INHALATION 3 ml Q6H.RESP BENJI Administration Folic Acid 1 mg 05/16/25 06:00 05/16/25 06:30 Folic Acid 5 Mg/Ml Mdv 10ml IV 1 mg DAILY@0600 BENJI Administration Hydrocortisone Sodium Succinate 100 mg 05/16/25 05:45 05/16/25 13:39 Hydrocortisone 100 Mg/2 Ml Sdv IVP 100 mg Q8H BENJI Administration Albumin Human 25 g in 100 mls @ 60 mls/hr 05/14/25 08:15 05/16/25 15:36 Albumin IV 60 mls/hr Q8H BENJI Administration Furosemide 100 mg/ Sodium 50 mls @ 5 mls/hr 05/14/25 10:00 05/16/25 15:36 Chloride IV 20 mg/hr .Q10H BENJI 10 mls/hr Protocol Titration Norepinephrine Bitartrate 4 mg in 250 mls @ 0 mls/hr 05/16/25 09:00 05/16/25 16:00 Levophed IV 4 mcg/min .Q0M BENJI 15 mls/hr Protocol Titration Per Protocol Propofol 1,000 mg in 100 mls @ 0 mls/hr 05/16/25 09:00 05/16/25 19:05 Diprivan IV 40 mcg/kg/min .Q0M BENJI 21.48 mls/hr Protocol Administration Per Protocol Fentanyl 1,000 mcg in 100 mls @ 0 mls/hr 05/16/25 09:00 05/16/25 11:50 Sublimaze IV 75 mcg/hr .Q0M BENJI 7.5 mls/hr Protocol Titration Per Protocol Vasopressin 40 unit in 100 mls @ 1.5 mls/hr 05/16/25 12:30 05/16/25 13:39 Vasostrict IV 0.01 unit/min CONT BENJI 1.5 mls/hr 0.01 UNIT/MIN Administration Fluconazole 100 mg/ N/A 50 mls @ 50 mls/hr 05/16/25 13:30 05/16/25 17:17 IV Infused Q24H BENJI Infusion Lactulose 10 gm 05/16/25 17:15 05/16/25 17:32 Lactulose Oral Liq 20 Gm/30 Ml Udc OG-TUBE 10 gm Q6H BENJI Administration Meropenem 1,000 mg 05/16/25 05:30 05/16/25 13:39 Meropenem 1,000 Mg Sdv IVP 1,000 mg Q8H BENJI Administration Protocol Metolazone 10 mg 05/16/25 12:45 05/16/25 13:39 Metolazone 5 Mg Tablet PO 10 mg DAILY BENJI Administration Multivitamins Therapeutic 1 tab 05/10/25 05:00 05/16/25 08:58 Multivitamin Therapeutic Tablet PO Not Given DAILY BENJI Pantoprazole Sodium 40 mg 05/16/25 17:15 05/16/25 17:33 Pantoprazole 40 Mg Sdv IVP 40 mg Q12H BENJI Administration Thiamine HCl 100 mg 05/16/25 05:00 05/16/25 04:05 Thiamine 100 Mg/Ml 2ml Sdv IVP 100 mg DAILY BENJI Administration Thiamine Mononitrate 100 mg 05/10/25 05:00 05/15/25 05:10 Thiamine 100 Mg Tablet PO Not Given On Hold: 05/15/25 13:41 DAILY BENJI PFSH Acute 2 PFSH: Medical History (Updated 05/16/25 @ 17:40 by Abimael Ely MD) Pleural effusion Community acquired pneumonia Paronychia Hypertension Thyroid nodule greater than or equal to 1.5 cm in diameter incidentally noted on imaging study cystic on 08/09/22 thyroid US Anxiety Diabetes type 2, uncontrolled DIC (disseminated intravascular coagulation) Ketoacidosis Lactic acidosis Metabolic encephalopathy Thrombocytopenia Sepsis Social History (Updated 05/09/25 @ 12:46 by Joseph Bowen MD) Smoking and tobacco/nicotine status: never used tobacco/nicotine Alcohol intake: current Substance/Drug Use: never Household members: spouse Marital status: Vitals/I&O/Wt Last Vital Signs Temp 98.5 F 05/16/25 18:15 Pulse 79 05/16/25 18:15 Resp 20 H 05/16/25 18:01 BP 111/50 05/16/25 18:15 Pulse Ox 93 05/16/25 18:15 O2 Del Method Mechanical Ventilation 05/16/25 18:15 O2 Flow Rate 60 05/14/25 10:54 FiO2 70 05/16/25 18:19 05/16/25 05/16/25 05/16/25 06:59 14:59 22:59 Intake Total 150 / 052.161 9729.585 / 2033.585 667.542 / 2701.127 Output Total 175 / 175 Balance 150 / -462.873 5317.585 / 2033.585 492.542 / 2526.127 Weight last 48 hrs Weight 89.5 kg Weight 90 kg Physical Exam 2 Narrative: GEN: intubated, sedated, ett in place HEAD: normocephalic, atraumatic EYES: eyes are closed HEENT: ett in place NECK: equivocal jvd CV: RRR LUNGS: diminished BS bilaterally ABD: distended, firm EXT: +2 BLE and +2 BUE edema NEURO: sedated SKIN: no rash Urinary Catheter Management: Felix: Cath Placed During This Visit: yes Reason for Continuing Indwelling Catheter: Accurate Measurement of Urinary Output in Critically Ill Patients Urinary Catheter Date of Insertion: 05/09/25 Urinary Catheter Time of Insertion: 09:30 Data 05/16/25 17:45 05/16/25 17:45 Micro: Microbiology 05/16/25 12:53 Bacterial Antigens - Final Urine Kidney 05/16/25 09:25 Gram Stain - Final Sputum - Endotracheal Tube Aspirate 05/11/25 09:28 Blood Culture - Final Blood NO GROWTH AFTER 5 DAYS 05/11/25 09:28 Blood Culture - Final Blood NO GROWTH AFTER 5 DAYS A&P Assessment and plan 1. Decompensated hepatic cirrhosis: 2. Anasarca: 3. Acute respiratory failure with hypoxia: 4. Hepatorenal syndrome: Plan: VASYL- The differential for her vasyl includes ATN vs hepatorenal syndrome. SHe is oliguric and has significant anasarca. She will need to initiate renal replacement therapy following catheter placement Acute hypoxic respiratory failure- i will plan on uf with hd as tolerated. Further management per the pulmonary service anasarca- i will plan on uf with hd as tolerated anemia- s/p prbc transfusion Thrombocytopenia- s/p ffp and platelet transfusion Etoh cirrhosis PDMP PDMP Reviewed: Not Reviewed Consult Attestations 2 Medical Necessity Statement: vasyl Time Spent in Patient Care: 50 minutes Coding Level of Care Code Acute Code for [facility] Fwd Diagnoses Decompensated hepatic cirrhosis K72.90; K74.60 Anasarca R60.1 Acute respiratory failure with hypoxia J96.01 Hepatorenal syndrome K76.7
--- NOTE | 2025-05-16 21:01 | XRR_ITS ---
PROCEDURE INFORMATION: Exam: XR Chest Exam date and time: 05/16/2025 10:06 PM Age: 64 years old Clinical indication: Device placement; Other: Dialysis catheter; Additional info: Line placement TECHNIQUE: Imaging protocol: Radiologic exam of the chest. Views: 1 view. COMPARISON: CR XR chest 1V portable [id number] 05/16/2025 11:12 AM FINDINGS: Lungs: Some improvement diffuse bilateral pulmonary opacities consistent with edema. Pleural spaces: Decreased effusions. Heart/Mediastinum: Borderline heart size. Bones/joints: Degenerative changes thoracic spine. Other findings: ETT has its tip in satisfactory position. NG tube has its visualized portion in the stomach. A dialysis catheter has been inserted with its tip at the approximate junction of the right atrium with superior vena cava. Tip of PICC line proximally 1 point 8 5 cm superior to the expected junction of the superior vena cava and right atrium. Upper abdomen: Unremarkable. XR/XR chest 1V portable [id number] IMPRESSION: 1. Some improvement in the appearance of the chest. 2. ETT tip in satisfactory position. 3. Visualized portion of NG tube in the stomach, tip of PICC line approximately 1.5 cm superior to the expected junction of the superior vena cava and right atrium, feeding tube tip at the approximate junction of the superior vena cava and right atrium.
[2025-05-16] MEDS: fentaNYL 1,000 MCG/100 ML BAG 7.5 MCG IV (22:01)
[2025-05-17] VITALS (79 sets, daily range): BP systolic 94–138; BP diastolic 42–60; PULSE 66–97; RESP 18–30; TEMP 36.2–37; O2SAT 78–99
[2025-05-17 01:31] LABS: Hematocrit 22.9 % (36-47); Hemoglobin 7.80 g/dL (11.27-16.99); Mean Corpuscular HGB Conc 34.1 g/dL (30-55); Mean Corpuscular Hemoglobin 30.1 pg (27-33); Mean Corpuscular Volume 88.4 fl (85-98); Nucleated Red Blood Cells % 0.4 %; Platelet Count 49 10^3/cmm (157-399); Red Blood Count 2.59 10^6/uL (3.85-5.65); White Blood Count 10.12 10^3/uL (3.29-11.43)
[2025-05-17 02:13] LABS: Estmated Average Glucose 80; Hemoglobin A1C 4.4 % (4.0-6.0)
[2025-05-17 03:16] LABS: Hematocrit 24.8 % (36-47); Hemoglobin 7.60 g/dL (11.27-16.99); Mean Corpuscular HGB Conc 30.6 g/dL (30-55); Mean Corpuscular Hemoglobin 26.2 pg (27-33); Mean Corpuscular Volume 85.5 fl (85-98); Nucleated Red Blood Cells % 0.2 %; Platelet Count 53 10^3/cmm (157-399); Red Blood Count 2.90 10^6/uL (3.85-5.65); White Blood Count 10.62 10^3/uL (3.29-11.43)
[2025-05-17 03:35] LABS: Alanine Aminotransferase 17 U/L (0-33); Albumin Level 3.7 g/dL (3.5-5.2); Alkaline Phosphatase 64 U/L (35-105); Anion Gap 17.0 (5-19); Aspartate Amino Transferase 54 U/L (0-32); Blood Urea Nitrogen 40 mg/dL (8-23); Calcium 9.2 mg/dL (8.5-10.5); Carbon Dioxide 27 mmol/L (22-29); Chloride 102 mmol/L (98-107); Globulin 1.6 g/dL (1.3-4.6); Glucose 148 mg/dL (65-115); Osmolality Calculated 307 mOsm/kg (285-295); Potassium 4.0 mmol/L (3.5-5.1); Sodium 142 mmol/L (136-145); Total Protein 5.3 g/dL (6.6-8.7)
[2025-05-17 03:36] LABS: Magnesium 1.9 mg/dL (1.7-2.3)
[2025-05-17] MEDS: propofol 1,000 MG/100 ML INJ 21.48 MG IV ×4 (03:38→15:52)
[2025-05-17 05:44] LABS: ABG PCO2 45.5 mmHg (35-45); ABG PH Result 7.39 (7.35-7.45); Alveolar-Arterial Oxygen Gradi 38.0 mmHg (5-10); Arterial Blood Gas Hematocrit 24.1 % (37-47); Blood Gas Allen Test Pos; Blood Gas Operator Identificat SAM; Blood Gas Sample Site Radial, right; Blood Gas Sample Type Arterial; Blood Gas Tidal Volume 0.40; Carboxyhemoglobin 3.0 %THgb (0.4-20.1); Glucose Level-ABG 145.0 mg/dL (70-115); HCO3 ABG 27.3 mmol/L (22-26); Ionized Calcium Level - ABG 1.3 mmol/L (1.1-1.4); Methemoglobin 0.8 % (0.4-1.5); Oxygen Saturation ABG 97.1; PEEP 12.0 cmH20; PO2 ABG 79.7 mmHg (80.0-100.0); PO2 FiO2 Ratio Arterial Blood 132; Potassium Level - ABG 3.8 mmol/L (3.5-5.0); Sodium Level - ABG 143.0 mmol/L (131-143)
[2025-05-17] MEDS: hydrocortisone 100 mg/2 mL SDV IVP ×2 (05:46→13:11)
[2025-05-17] MEDS: pantoprazole 40 mg SDV IVP (05:46)
[2025-05-17] MEDS: thiamine 100 mg/mL 2mL SDV IVP (05:46)
[2025-05-17] MEDS: meropenem 1,000 mg SDV 1000 MG IVP ×2 (05:46→13:10)
[2025-05-17] MEDS: lactulose oral liq 20 gm/30 mL UDC 10 GM OG-TUBE ×2 (05:47→11:57)
[2025-05-17] MEDS: multivitamin therapeutic Tablet 1 TAB PO (05:47)
[2025-05-17] MEDS: albumin 25 G/100 ML BAG 60 G IV (08:04)
--- NOTE | 2025-05-17 09:00 | PM.PN ---
Subjective Subjective: intubated, sedated. unable to obtain a ROS. Medications: Reviewed: Yes Medication Review Details: Current Medications Albuterol/Ipratropium (Ipratropium-Albuterol 3 Ml Neb) 3 ml INHALATION Q6H PRN PRN Reason: SHORTNESS OF BREATH Last Admin: 05/16/25 07:44 Dose: 3 ml Albuterol/Ipratropium (Ipratropium-Albuterol 3 Ml Neb) 3 ml INHALATION Q6H.RESP BENJI Last Admin: 05/17/25 08:02 Dose: 3 ml Alteplase, Recombinant (Alteplase 1 Mg/Ml Sdv 2 Ml) 2 mg INTRACATH PRN PRN PRN Reason: DIALYSIS USE ONLY Budesonide (Budesonide 0.5 Mg/2 Ml Neb) 0.5 mg INHALATION BID.RESPIRATORY BENJI Last Admin: 05/17/25 08:02 Dose: 0.5 mg Folic Acid (Folic Acid 5 Mg/Ml Mdv 10ml) 1 mg IV DAILY@0800 BENJI Hydrocortisone Sodium Succinate (Hydrocortisone 100 Mg/2 Ml Sdv) 100 mg IVP Q8H BENJI Last Admin: 05/17/25 05:46 Dose: 100 mg Albumin Human (Albumin) 25 g in 100 mls @ 60 mls/hr IV Q8H BENJI Last Admin: 05/17/25 08:04 Dose: 60 mls/hr Furosemide 100 mg/ Sodium (Chloride) 50 mls @ 5 mls/hr IV .Q10H BENJI; Protocol Last Admin: 05/17/25 08:03 Dose: 20 mg/hr, 10 mls/hr Norepinephrine Bitartrate (Levophed) 4 mg in 250 mls @ 0 mls/hr IV .Q0M BENJI; Protocol Last Titration: 05/17/25 03:00 Dose: 2 mcg/min, 7.5 mls/hr Propofol (Diprivan) 1,000 mg in 100 mls @ 0 mls/hr IV .Q0M BENJI; Protocol Last Admin: 05/17/25 07:52 Dose: 40 mcg/kg/min, 21.48 mls/hr Fentanyl (Sublimaze) 1,000 mcg in 100 mls @ 0 mls/hr IV .Q0M BENJI; Protocol Last Admin: 05/16/25 22:01 Dose: 75 mcg/hr, 7.5 mls/hr Vasopressin (Vasostrict) 40 unit in 100 mls @ 1.5 mls/hr IV CONT BENJI Last Admin: 05/16/25 13:39 Dose: 0.01 unit/min, 1.5 mls/hr Fluconazole 100 mg/ N/A 50 mls @ 50 mls/hr IV Q24H BENJI Last Infusion: 05/16/25 17:17 Dose: Infused Sodium Chloride (Sodium Chloride 0.9%) 1,000 mls @ 0 mls/hr IV .Q0M PRN PRN Reason: hypotension or symptomatic Albumin Human (Albumin) 12.5 gm in 50 mls @ 60 mls/hr IV PRN PRN PRN Reason: Hypotension and/or symptomatic Lactulose (Lactulose Oral Liq 20 Gm/30 Ml Udc) 10 gm OG-TUBE Q6H BENJI Last Admin: 05/17/25 05:47 Dose: 10 gm Meropenem (Meropenem 1,000 Mg Sdv) 1,000 mg IVP Q8H [facility]; Protocol Last Admin: 05/17/25 05:46 Dose: 1,000 mg Metolazone (Metolazone 5 Mg Tablet) 10 mg PO DAILY [facility] Last Admin: 05/17/25 05:47 Dose: 10 mg Multivitamins Therapeutic (Multivitamin Therapeutic Tablet) 1 tab PO DAILY BENJI Last Admin: 05/17/25 05:47 Dose: 1 tab Ondansetron HCl (Ondansetron 2 Mg/Ml Sdv 2 Ml) 4 mg IVP Q8H PRN PRN Reason: vomiting, or N/V if npo Pantoprazole Sodium (Pantoprazole 40 Mg Sdv) 40 mg IVP Q12H BENJI Last Admin: 05/17/25 05:46 Dose: 40 mg Thiamine HCl (Thiamine 100 Mg/Ml 2ml Sdv) 100 mg IVP DAILY [facility] Last Admin: 05/17/25 05:46 Dose: 100 mg Thiamine Mononitrate (Thiamine 100 Mg Tablet) 100 mg PO DAILY [facility] On Hold: 05/15/25 13:41 Last Admin: 05/15/25 05:10 Dose: Not Given Vitals/I&O/Wt Last Vital Signs Temp 97.1 F L 05/17/25 07:44 Pulse 72 05/17/25 08:19 Resp 18 05/17/25 08:06 BP 107/45 05/17/25 07:00 Pulse Ox 94 05/17/25 08:06 O2 Del Method Mechanical Ventilation 05/17/25 08:02 O2 Flow Rate 60 05/14/25 10:54 FiO2 60 05/17/25 08:06 05/16/25 05/17/25 05/17/25 22:59 06:59 14:59 Intake Total 1195.250 / 3228.835 433.76 / 3662.595 134.432 / 134.432 Output Total 175 / 175 Balance 1020.250 / 3053.835 433.76 / 3487.595 134.432 / 134.432 Weight last 48 hrs Weight 91.5 kg Weight 89.5 kg Physical Exam Narrative: Patient is intubated on Levophed and vasopressin. Patient is intubated FiO2 of 60%. Patient has significant edema though per nurse has improved. HEENT normocephalic atraumatic icteric. Neck is supple. Lungs have dullness at both bases. Heart regular positive S1-S2 Abdomen is soft positive ascites. Extremities bilateral edema. Dialysis access right IJ catheter. Neuro sedated. Urinary Catheter Management: Felix: Cath Placed During This Visit: yes Reason for Continuing Indwelling Catheter: Accurate Measurement of Urinary Output in Critically Ill Patients Urinary Catheter Date of Insertion: 05/09/25 Urinary Catheter Time of Insertion: 09:30 Data 05/17/25 03:04 05/17/25 03:04 Micro: Microbiology 05/16/25 12:53 Bacterial Antigens - Final Urine Kidney 05/16/25 09:25 Gram Stain - Final Sputum - Endotracheal Tube Aspirate 05/11/25 09:28 Blood Culture - Final Blood NO GROWTH AFTER 5 DAYS 05/11/25 09:28 Blood Culture - Final Blood NO GROWTH AFTER 5 DAYS A&P Assessment and plan 1. DIANNA (acute kidney injury): Patient is a 64-year-old lady EtOH use, history of liver cirrhosis, septic shock being treated with vancomycin and meropenem and fluconazole was also added. The patient has decompensated hepatic cirrhosis with a MELD score yesterday 33. Patient was intubated yesterday and renal was called as she is not urinating and there is concern for hepatorenal syndrome versus ATN. Patient was not able to tolerate any fluid challenges as she is hypoxic even on high oxygen from the vent. Renal was called into dialyze. Acute kidney injury differential diagnosis hepatorenal syndrome is ATN. This patient is volume overloaded and hypoxic even on the vent, renal was asked to provide dialysis for fluid removal. Urinalysis reviewed 2+ protein 3+ blood 1+ bilirubin, 10-15 white cells 5-10 RBCs 1 can consider interstitial nephritis or other causes for renal failure. Patient's urine sodium is 38 Consider blood transfusion as per medicine ABG reviewed patient's pH is balance at 7.39 she has a mild respiratory acidosis Electrolytes reviewed potassium is 4 bicarbonate is 27 BUN has risen to 40. Liver failure bilirubin 7.7 as per medicine agree with consideration of transfer. Hepatitis serologies are negative If patient needs vancomycin can redosed 5 and your milligrams after dialysis today Will check renal ultrasound. Consent for dialysis and telemedicine obtained from patient's . Patient was seen and examined using audiovisual equipment with the aid of a nurse. Plan: Ultrafiltration today as tolerated PDMP PDMP Reviewed: Not Reviewed Attestations Medical Necessity Statement*: Vent dependent respiratory failure septic shock acute liver failure Time Spent in Patient Care: Greater than 35 minutes (>than 50% of time spent in counselling and/or direct pt care on unit). Coding Level of Care Code Acute Code for [facility] Fwd Diagnoses DIANNA (acute kidney injury) N17.9
[2025-05-17] MEDS: folic acid 5 mg/ml MDV 10mL 1 MG IV (09:09)
--- NOTE | 2025-05-17 09:10 | US_ITS ---
WS: [id number] RENAL ULTRASOUND HISTORY: vasyl COMPARISON: None available. TECHNIQUE: 2-D and color Doppler imaging of the kidney submitted. Right kidney: 9.2 cm x 5.4 cm x 5.0 cm. Cortex: 1.1 cm Normal echogenicity with no hydronephrosis or mass. Left kidney: 9.5 cm x 4.8 cm x 5.2 cm. Cortex: 1.3 cm Normal echogenicity with no hydronephrosis or mass. Aorta: Normal. Urinary Bladder: Not distended. Small amount of ascites. Cirrhotic configuration of the liver. US/US renal BI* [id number] IMPRESSION: Normal size kidneys. No hydronephrosis. Small amount of ascites. Cirrhotic configuration of the liver.
[2025-05-17] MEDS: fentaNYL 1,000 MCG/100 ML BAG 7.5 MCG IV (09:58)
[2025-05-17 10:17] LABS: INR 3.47 (0.8-1.2); Prothrombin Time 36.70 SECONDS (12.1-14.9)
[2025-05-17 11:23] LABS: Hepatitis A Antibody IgM Non-Reactive (Nonreactive)
--- NOTE | 2025-05-17 11:23 | PC.NUTR ---
Received consult for tube feeding recommendations. MD ordered Nepro 1.8@10mls/hr w/100mls Q8H for FWF. Recommend Nepro 1.8 @10mls/hr to increase 10mls Q4-8H as tolerated until goal rate of 30mls/hr is reached with FWF per MD discretion.
--- NOTE | 2025-05-17 12:43 | PM.TDS ---
Transfer Summary Providers Date of Admission: 05/09/25 12:02 Date of Discharge/Transfer: 05/17/25 Attending Provider at Admission: Joseph Bowen Attending Provider at Transfer: Abimael Ely MD Consults: Telemetry nephrology Pulmonology Surgery Transfer Plans: Anticipated date of transfer: 05/17/25. Receiving Facility: [facility]. Receiving Provider: Dr. Ascencio. Diagnoses at Discharge Discharge Diagnosis 1. DIANNA (acute kidney injury): 2. Goals of care, counseling/discussion: 3. Shock: 4. Thrombocytopenia: 5. Supratherapeutic INR: 6. Diabetes type 2, uncontrolled: 7. Hyperammonemia: 8. Transaminitis: 9. Decompensated hepatic cirrhosis: 10. Ascites: 11. Hepatorenal syndrome: 12. Acute anemia: 13. Acute hypoxemic respiratory failure: 14. Community acquired pneumonia: 15. ARDS (adult respiratory distress syndrome): 16. Pleural effusion: 17. Anasarca: Reason for Visit Reason for Visit WEAKNESS Brief History: Per HPI Silvia Mcneal is a 64 year old woman with a history of type 2 diabetes mellitus and hypertension, presenting to the emergency department with weakness, worsening generalized swelling, and shortness of breath. Reports daily alcohol intake. On arrival, noted to be very edematous with ascites and low oxygen levels requiring supplemental oxygen. Denies hematemesis, melena, or black stools. She has not had prior endoscopy or colonoscopy. Denies history of hepatitis. Reports diarrhea occurring usually once daily. Denies rashes. She was informed of newly identified liver cirrhosis and associated fluid accumulation (ascites and pleural effusions), contributing to fatigue and dyspnea. Anemia was discussed; she is receiving blood transfusion in the emergency department. Code status discussed; she is agreeable to attempts at cardiopulmonary resuscitation (CPR) if needed. Hospital Course Hospital Course Patient was admitted to the hospital further evaluation and management of acute respiratory failure with concerns for decompensated liver cirrhosis, generalized anasarca and ascites. She was started on broad-spectrum IV antibiotics with concerns for community-acquired pneumonia. She was found to have acute anemia on admission along with concerns of pleural effusion. It is believed decompensated liver cirrhosis is alcoholic in etiology. Her respiratory failure continued to worsen with patient being BiPAP dependent with 100% FiO2 for more than 48 hours. Pulmonology was consulted. She was started on aggressive IV diuresis with Lasix eventually needing Lasix drip. Due to persistent respiratory failure, worsening mentation patient was eventually intubated on 05/16. She developed shock requiring vasopressors. Postintubation gradually now oxygen requirements are being turned down with FiO2 down to 60% currently. She is on 2-4 mics of Levophed along with 0.01 of vasopressor with concern for hepatorenal syndrome. She has been continued on IV albumin, broad-spectrum antibiotics. Cultures have remained negative. Due to persistent respiratory failure, patient developing oliguric renal failure nephrology was consulted. Patient had persistent thrombocytopenia, elevated INR and had worsening anemia for which she required overall units of blood transfusion, 2 units of FFP, 2 units of platelets and 2 doses of vitamin K after which her INR improved to around 3. Eventually surgery was consulted and she had dialysis catheter placed. Multiple goals of care discussions were done with family at bedside. They were informed about significantly poor prognosis. 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 [facility] by Dr. Ascencio and is being transferred for further management. Today on 05/17: Overnight patient has remained hemodynamically stable. Levophed has been turned down to 2 while vasopressin has been continued at 0.01. She has remained overall stable continued on Lasix drip. Had dialysis cath catheter placed last night. Currently on 60% FiO2 with PEEP of 12. ABG showing improved oxygenation though patient continues to desaturate on minimal movement even in bed down to low 80s. Plan for starting of dialysis today. Possibly CT abdomen pelvis if patient is able to move safely along with abdominal ultrasound for possible paracentesis. IV vancomycin has been discontinued as MRSA screen is negative. She has been continued on fluconazole and meropenem. Tube feeds were initiated but had to be withheld due to high residuals. She will be continued on lactulose given concerns for mildly elevated ammonia. Cannot rule out baseline ileus given prolonged hospitalization. If continues to have high residuals will discontinue all p.o. medications. For now we will continue with high-dose of steroids as well. Physical Exam Narrative: General: Sedated, intubated HEENT: PERRLA, pupils bilaterally equal and reactive Chest: Bilateral bronchial breath sounds all lung shanks, decreased air entry all over lung shanks, coarse to fine crackles diffuse CVS: S1-S2 regular, no murmurs, no tachycardia, no gallops, no rubs Abdomen: Soft, nontender, no organomegaly, bowel sounds present Neuro: Intubated, sedated Generalized anasarca with weeping through the skin Urinary Catheter Management: Felix: Cath Placed During This Visit: yes Reason for Continuing Indwelling Catheter: Accurate Measurement of Urinary Output in Critically Ill Patients Urinary Catheter Date of Insertion: 05/09/25 Urinary Catheter Time of Insertion: 09:30 TS Data Studies Completed and Pending Pending at discharge Category Date Time Status CT abdomen pelvis w con* [id number] Routine Cat Scan 05/16/25 12:41 Ordered ABG FULL [Arterial Blood Gas Full] AM LABS Lab 05/18/25 04:00 Ordered ABG FULL [Arterial Blood Gas Full] AM LABS Lab 05/19/25 04:00 Ordered Complete Blood Count w/Auto AM LABS Lab 05/18/25 04:00 Ordered Complete Blood Count w/Auto AM LABS Lab 05/19/25 04:00 Ordered Complete Blood Count w/Auto AM LABS Lab 05/20/25 04:00 Ordered Comprehensive Metabolic Panel AM LABS Lab 05/18/25 04:00 Ordered Comprehensive Metabolic Panel AM LABS Lab 05/19/25 04:00 Ordered Comprehensive Metabolic Panel AM LABS Lab 05/20/25 04:00 Ordered Fibrinogen Degradation Product Routine Lab 05/16/25 18:19 Received Hepatitis Acute Panel Stat Lab 05/17/25 03:04 Results MAG [Magnesium] AM LABS Lab 05/18/25 04:00 Ordered MAG [Magnesium] AM LABS Lab 05/19/25 04:00 Ordered Magnesium AM LABS Lab 05/18/25 04:00 Ordered Magnesium AM LABS Lab 05/19/25 04:00 Ordered Magnesium AM LABS Lab 05/20/25 04:00 Ordered Phosphorus AM LABS Lab 05/18/25 04:00 Ordered Phosphorus AM LABS Lab 05/19/25 04:00 Ordered Phosphorus AM LABS Lab 05/20/25 04:00 Ordered Sputum Culture and Gram Stain Stat Lab 05/16/25 09:25 Results Urine Culture Stat Lab 05/16/25 12:53 [place] w [id number] Routine Ultrasound 05/17/25 17:51 Ordered US renal BI* [id number] Routine Ultrasound 05/17/25 09:10 Ordered US thoracentesis [id number] Routine Ultrasound 05/17/25 13:23 Ordered Completed Studies During Hospitalization Category Date Time Status CT Angio Chest + Abdomen Pelvis w/ contrast; [id number] + Cat Scan 05/09/25 07:[id number] angio chest PE protcl [id number] Stat Cat Scan 05/13/25 10:08 Completed CXRP [XR chest 1V portable [id number]] Routine Exams 05/10/25 20:57 Completed CXRP [XR chest 1V portable [id number]] Routine Exams 05/16/25 09:21 Completed XR chest 1V portable [id number] Stat Exams 05/09/25 06:34 Completed XR chest 1V portable [id number] Stat Exams 05/16/25 08:49 Completed XR chest 1V portable [id number] Stat Exams 05/16/25 21:01 Completed CV. echo complete* [id number] Routine Ultrasound 05/16/25 12:42 Com[place]acent[place]d w [id number] Stat Ultrasound 05/09/25 11:39 Completed Laboratory Last Values WBC 10.62 10^3/uL (3.29-11.43) 05/17/25 03:04 Corrected WBC Cancelled 05/15/25 08:14 RBC 2.90 10^6/uL (3.85-5.65) L 05/17/25 03:04 Hgb 7.60 g/dL (11.27-16.99) L 05/17/25 03:04 Hct 24.8 % (36-47) L 05/17/25 03:04 MCV 85.5 fl (85-98) 05/17/25 03:04 MCH 26.2 pg (27-33) L 05/17/25 03:04 MCHC 30.6 g/dL (30-55) 05/17/25 03:04 RDW 23.8 % (12.1-15.1) H 05/17/25 03:04 Plt Count 53 10^3/cmm (157-399) L 05/17/25 03:04 MPV 9.8 fL (7.4-10.4) 05/17/25 03:04 Gran % Cancelled 05/15/25 08:14 Neut % (Auto) 87.6 % 05/17/25 03:04 Lymph % (Auto) 7.0 % 05/17/25 03:04 Saunders % (Auto) 4.0 % 05/17/25 03:04 Eos % (Auto) 0.4 % 05/17/25 03:04 Baso % (Auto) 0.2 % 05/17/25 03:04 Neut # (Auto) 9.31 10^3/uL (1.8-7.7) H 05/17/25 03:04 Lymph # (Auto) 0.7 10^3/uL (0.8-4.8) L 05/17/25 03:04 Saunders # (Auto) 0.4 10^3/uL (0.2-0.9) 05/17/25 03:04 Eos # (Auto) 0.0 10^3/uL (0.0-0.8) 05/17/25 03:04 Baso # (Auto) 0.0 10^3/uL (0.0-0.1) 05/17/25 03:04 Absolute Gran (auto) Cancelled 05/15/25 08:14 Nucleated RBC % (auto) 0.2 % 05/17/25 03:04 Nucleated RBCs # 0.0 /100WBC 05/17/25 03:04 PT 36.70 SECONDS (12.1-14.9) H 05/17/25 09:48 INR 3.47 (0.8-1.2) H 05/17/25 09:48 APTT 52.7 SECONDS (23.9-36.7) H 05/16/25 17:45 Fibrinogen 154 mg/dL (174-498) L 05/16/25 17:45 D-Dimer 2.36 ug/mLFEU (0-0.59) H 05/16/25 17:45 Specimen Type Arterial 05/17/25 05:30 Sample Site Radial, right 05/17/25 05:30 ABG pH 7.39 (7.35-7.45) 05/17/25 05:30 ABG pCO2 45.5 mmHg (35-45) H 05/17/25 05:30 ABG pO2 79.7 mmHg (80.0-100.0) L 05/17/25 05:30 ABG PO2/FiO2 Ratio 132 05/17/25 05:30 ABG HCO3 27.3 mmol/L (22-26) H 05/17/25 05:30 ABG O2 Saturation 97.1 05/17/25 05:30 ABG Base Excess 2.0 mmol/L (-2.0-2.0) 05/17/25 05:30 Joshua Test Pos 05/17/25 05:30 A-a O2 Gradient 38.0 mmHg (5-10) H 05/17/25 05:30 Hematocrit 24.1 % (37-47) L 05/17/25 05:30 Hgb O2 Saturation 93.4 % (95-100) L 05/17/25 05:30 Carboxyhemoglobin 3.0 %THgb (0.4-20.1) 05/17/25 05:30 Methemoglobin 0.8 % (0.4-1.5) 05/17/25 05:30 Total Hemoglobin 7.9 g/dL (12-16) L 05/17/25 05:30 Sodium 143.0 mmol/L (131-143) 05/17/25 05:30 Potassium 3.8 mmol/L (3.5-5.0) 05/17/25 05:30 Glucose 145.0 mg/dL (70-115) H 05/17/25 05:30 Ionized Calcium 1.3 mmol/L (1.1-1.4) 05/17/25 05:30 O2 Delivery Device Vent 05/17/25 05:30 O2 Liters/Min 7.0 % 05/09/25 06:41 FiO2 60.0 % 05/17/25 05:30 Tidal Volume 0.40 05/17/25 05:30 PEEP 12.0 cmH20 05/17/25 05:30 Shipmaster ID Lj 05/17/25 05:30 Sodium 142 mmol/L (136-145) 05/17/25 03:04 Potassium 4.0 mmol/L (3.5-5.1) 05/17/25 03:04 Chloride 102 mmol/L (98-107) 05/17/25 03:04 Carbon Dioxide 27 mmol/L (22-29) 05/17/25 03:04 Anion Gap 17.0 (5-19) 05/17/25 03:04 BUN 40 mg/dL (8-23) H 05/17/25 03:04 Creatinine 1.3 mg/dL (0.5-0.9) H 05/17/25 03:04 GFR Calculation 41.2 mL/min (90-130) L 05/17/25 03:04 Glucose 148 mg/dL (65-115) H 05/17/25 03:04 POC Glucose 156 mg/dL (70-110) H 05/17/25 07:02 Estimat Average Glucose 80 05/17/25 01:22 Hemoglobin A1c 4.4 % (4.0-6.0) 05/17/25 01:22 Calculated Osmolality 307 mOsm/kg (285-295) H 05/17/25 03:04 Lactic Acid 2.9 mmol/L (0.5-2.2) H 05/09/25 06:59 Lactic Acid (Sepsis) 2.8 mmol/L (0.5-2.2) H 05/09/25 10:08 Calcium 9.2 mg/dL (8.5-10.5) 05/17/25 03:04 Magnesium 1.9 mg/dL (1.7-2.3) 05/17/25 03:04 Iron 19 ug/dL (37-145) L 05/16/25 03:27 TIBC 128 mcg/dl 05/16/25 03:27 % Saturation 14.8 % (20-50) L 05/16/25 03:27 Unsat Iron Binding 109 ug/dL (112-347) L 05/16/25 03:27 Ferritin 51 ng/mL (15-150) 05/11/25 09:28 Total Bilirubin 7.7 mg/dL (0.15-1.2) H* D 05/17/25 03:04 Direct Bilirubin 1.86 mg/dL (0.00-0.30) H 05/12/25 04:50 GGT 23 U/L (5-36) 05/16/25 09:15 AST 54 U/L (0-32) H 05/17/25 03:04 ALT 17 U/L (0-33) 05/17/25 03:04 Alkaline Phosphatase 64 U/L (35-105) 05/17/25 03:04 Ammonia 55 umol/L (11-51) H 05/16/25 09:15 Lactate Dehydrogenase 301 U/L (135-214) H 05/16/25 09:15 Troponin T Baseline 25 ng/L (0-10) H 05/09/25 06:59 Troponin T 120 Minute 26.48 ng/L (0-10) H 05/09/25 08:50 Delta Troponin T 1.48 ABS# (0-10) 05/09/25 08:50 Troponin T Hi Sens 6Hr 33.59 ng/L (0-10) H 05/09/25 18:37 Troponin T Hi Sens 6Hr Delta 8.59 ng/L (0-12) 05/09/25 18:37 C-Reactive Protein 7.5 mg/L (0.0-4.9) H 05/09/25 06:59 NT-Pro-B Natriuret Pep 474 pg/mL (0-125) H 05/09/25 06:59 Total Protein 5.3 g/dL (6.6-8.7) L 05/17/25 03:04 Albumin 3.7 g/dL (3.5-5.2) 05/17/25 03:04 Globulin 1.6 g/dL (1.3-4.6) 05/17/25 03:04 Vitamin B12 > 2000 pg/mL (232-1245) H 05/16/25 03:27 Folate 9.7 ng/mL (4.8-37.3) 05/17/25 03:04 Procalcitonin 0.86 ng/mL (0-0.5) H 05/16/25 03:27 TSH 2.17 uIU/mL (0.27-4.20) 05/16/25 03:27 Urine Color Dark yellow (Yellow) A 05/16/25 12:53 Urine Appearance Turbid (CLEAR) A 05/16/25 12:53 Urine pH 5.0 (5-7) 05/16/25 12:53 Ur Specific [place] 1.017 (1.005-1.030) 05/16/25 12:53 Urine Protein 2+ (Negative) A 05/16/25 12:53 Urine Glucose (UA) Negative (Normal) 05/16/25 12:53 Urine Ketones Trace (Negative) 05/16/25 12:53 Urine Blood 3+ (Negative) A 05/16/25 12:53 Urine Nitrate Negative (Negative) 05/16/25 12:53 Urine Bilirubin 1+ (Negative) H 05/16/25 12:53 Urine Urobilinogen 0.2 mg/dL (Negative) 05/16/25 12:53 Ur Leukocyte Esterase 1+ (Negative) A 05/16/25 12:53 Urine RBC 5-10 /hpf (0-2) H 05/16/25 12:53 Urine WBC 10-15 /hpf (0-5) H 05/16/25 12:53 Ur Squamous Epith Cells 0-4 /hpf (0-5) H 05/16/25 12:53 Amorphous Sediment Not Reportable 05/16/25 12:53 Urine Bacteria 1+ /hpf (NONE) H 05/16/25 12:53 Hyaline Casts 3.30 /lpf 05/09/25 09:00 Urine Yeast 4+ /hpf H 05/16/25 12:53 Ur Random Sodium 38 mmol/L 05/16/25 12:53 Ur Random Potassium 52 mmol/L 05/16/25 12:53 Ur Random Chloride 59 mmol/L 05/16/25 12:53 Peritoneal Color Pale yellow (Pale Yellow) 05/09/25 15:30 Peritoneal Appearance Hazy (Clear) 05/09/25 15:30 Peritoneal WBC 106 /uL 05/09/25 15:30 Peritoneal RBC 0 10^3/uL 05/09/25 15:30 Periton Mononu # Auto 0.096 10^3/uL 05/09/25 15:30 Mononuclear WBCs % 90.600 % 05/09/25 15:30 Polynuclear WBCs % 9.400 % 05/09/25 15:30 Perit Polynuc WBCs # 0.010 10^3/uL 05/09/25 15:30 Peritoneal Diff Commnt Yes 05/09/25 15:30 Nasal MRSA (PCR) Not detected (Not Detecte) 05/16/25 13:12 Vancomycin Trough 19.6 ug/mL (10-15) H 05/17/25 05:02 Hepatitis A IgM Ab Non-reactive (Nonreactive) 05/17/25 03:04 Hep B Core IgM Ab Non-reactive (Nonreactive) 05/17/25 03:04 Hepatitis C Antibody Non-reactive (Nonreactive) 05/17/25 03:04 Influenza A (PCR) Negative (Negative) 05/09/25 08:45 Influenza Type B (PCR) Negative (Negative) 05/09/25 08:45 RSV (PCR) Negative (Negative) 05/09/25 08:45 SARS-CoV-2 (PCR) Negative (Negative) 05/09/25 08:45 Blood Type O Positive 05/16/25 05:57 Rho(D) Type Rh positive 05/16/25 05:57 Antibody Screen Negative 05/16/25 05:57 Crossmatch See Detail 05/16/25 05:57 Radiology Impressions Chest/Abdomen/Pelvis CT 05/09/25 07:56 IMPRESSION: 1. No evidence of pulmonary embolus. 2. Moderate RIGHT and small LEFT pleural effusions. 3. Patchy infiltrates in the LEFT greater than RIGHT upper lobes. 4. Cirrhotic liver with evidence of portal venous hypertension and portosystemic collaterals with varicosities. 5. Diffuse body wall anasarca. 6. Calcified gallstones. 7. Moderate abdominal and pelvic ascites. Paracentesis Ultrasound 05/09/25 11:39 IMPRESSION: Uncomplicated paracentesis yielding 3050 ml of peritoneal fluid. Chest CTA 05/13/25 10:08 IMPRESSION: Severe airspace disease with a combination of ground-glass pneumonitis areas of extensive consolidation pleural effusions differential to consider would include pulmonary edema however multilobar pneumonia or ARDS are considerations correlate and follow-up as indicated No acute or chronic pulmonary embolism or aneurysm. Findings of advanced liver cirrhosis subcutaneous edema pleural effusions compatible with edematous state related to chronic liver disease. Chest X-Ray 05/16/25 21:01 IMPRESSION: 1. Some improvement in the appearance of the chest. 2. ETT tip in satisfactory position. 3. Visualized portion of NG tube in the stomach, tip of PICC line approximately 1.5 cm superior to the expected junction of the superior vena cava and right atrium, feeding tube tip at the approximate junction of the superior vena cava and right atrium. Microbiology 05/16/25 12:53 Urine,Clean Catch Urine Culture - Preliminary Yeast species 05/16/25 12:53 Urine Kidney Bacterial Antigens - Final 05/16/25 09:25 Sputum - Endotracheal Tube Aspirate Gram Stain - Final 05/11/25 09:28 Blood Blood Culture - Final NO GROWTH AFTER 5 DAYS 05/11/25 09:28 Blood Blood Culture - Final NO GROWTH AFTER 5 DAYS 05/09/25 07:04 Blood Blood Culture - Final NO GROWTH AFTER 5 DAYS 05/09/25 06:59 Blood Blood Culture - Final NO GROWTH AFTER 5 DAYS 05/09/25 15:30 Ascites Fluid Gram Stain - Final 05/09/25 15:30 Ascites Fluid Body Fluid Culture - Final 05/11/25 20:17 Stool Routine Collection Occult Blood (FIT) - Final 05/09/25 09:00 Urine,Clean Catch Bacterial Antigens - Final 05/09/25 09:00 Urine,Clean Catch Legionella Urinary Antigen - Final Recent Clincial Data Last Vital Signs Temp 98.4 F 05/17/25 10:44 Pulse 93 05/17/25 11:15 Resp 18 05/17/25 11:28 BP 126/50 05/17/25 11:15 Pulse Ox 90 05/17/25 11:28 O2 Del Method Mechanical Ventilation 05/17/25 08:02 O2 Flow Rate 60 05/14/25 10:54 FiO2 60 05/17/25 11:28 Vital Signs Temp Pulse Resp BP Pulse Ox O2 Del Method FiO2 05/17/25 11:28 18 90 60 05/17/25 11:15 93 126/50 90 05/17/25 11:00 93 138/57 90 05/17/25 10:45 75 138/52 90 05/17/25 10:44 98.4 F 87 30 H 111/51 05/17/25 10:30 72 99/43 88 L 05/17/25 10:15 78 111/51 89 L 05/17/25 10:00 74 100/50 88 L 05/17/25 10:00 19 H 88 L 60 05/17/25 09:45 76 104/44 88 L 05/17/25 09:30 78 103/45 87 L 05/17/25 09:15 77 102/44 86 L 05/17/25 09:00 78 110/46 86 L 05/17/25 08:45 90 115/50 85 L 05/17/25 08:30 91 129/56 85 L 05/17/25 08:19 72 05/17/25 08:15 71 108/47 84 L 05/17/25 08:06 18 94 60 05/17/25 08:02 67 18 94 Mechanical Ventilation 60 05/17/25 08:00 67 108/44 84 L 05/17/25 07:45 67 111/46 91 05/17/25 07:44 97.1 F L 05/17/25 07:30 77 106/47 94 05/17/25 07:15 69 106/48 05/17/25 07:00 69 107/45 05/17/25 06:45 70 94/42 95 05/17/25 06:30 67 114/49 97 05/17/25 06:15 109/50 94 05/17/25 06:00 70 107/48 93 05/17/25 06:00 70 05/17/25 05:45 72 98/46 05/17/25 05:30 72 99/44 05/17/25 05:15 72 97/45 05/17/25 05:00 72 100/45 05/17/25 04:45 73 109/49 05/17/25 04:30 73 109/48 05/17/25 04:15 74 108/48 05/17/25 04:00 98.6 F 73 109/45 05/17/25 03:45 76 107/47 05/17/25 03:30 75 107/48 05/17/25 03:15 75 108/47 05/17/25 03:00 18 93 60 05/17/25 03:00 77 117/47 05/17/25 02:45 90 107/46 05/17/25 02:30 79 107/46 05/17/25 02:16 98.5 F 77 107/46 92 05/17/25 02:00 73 18 92 Mechanical Ventilation 60 05/17/25 01:45 72 107/50 05/17/25 01:30 73 105/46 05/17/25 01:15 66 108/47 94 05/17/25 01:00 72 106/48 05/17/25 00:50 18 97 70 05/17/25 00:45 71 103/45 96 Intake & Output/Weight 05/15/25 05/16/25 05/17/25 05/18/25 06:59 06:59 06:59 06:59 Intake Total 1426.25 / 1426.25 727.333 / 242.985 9363.595 / 3662.595 362.224 / 362.224 Output Total 4750 / 4750 1300 / 1300 175 / 175 Balance -3323.75 / -3323.75 -572.667 / -567.695 9371.595 / 3487.595 362.224 / 362.224 Weight 90 kg 89.5 kg 91.5 kg Vitals Last Vital Signs Temp 98.4 F 05/17/25 10:44 Pulse 93 05/17/25 11:15 Resp 18 05/17/25 11:28 BP 126/50 05/17/25 11:15 Pulse Ox 90 05/17/25 11:28 O2 Del Method Mechanical Ventilation 05/17/25 08:02 O2 Flow Rate 60 05/14/25 10:54 FiO2 60 05/17/25 11:28 TS Medications Medications Albuterol/Ipratropium (Ipratropium-Albuterol 3 Ml Neb) 3 ml INHALATION Q6H PRN PRN Reason: SHORTNESS OF BREATH Last Admin: 05/16/25 07:44 Dose: 3 ml Albuterol/Ipratropium (Ipratropium-Albuterol 3 Ml Neb) 3 ml INHALATION Q6H.RESP BENJI Last Admin: 05/17/25 08:02 Dose: 3 ml Alteplase, Recombinant (Alteplase 1 Mg/Ml Sdv 2 Ml) 2 mg INTRACATH PRN PRN PRN Reason: DIALYSIS USE ONLY Budesonide (Budesonide 0.5 Mg/2 Ml Neb) 0.5 mg INHALATION BID.RESPIRATORY BENJI Last Admin: 05/17/25 08:02 Dose: 0.5 mg Folic Acid (Folic Acid 5 Mg/Ml Mdv 10ml) 1 mg IV DAILY@0800 BENJI Last Admin: 05/17/25 09:09 Dose: 1 mg Hydrocortisone Sodium Succinate (Hydrocortisone 100 Mg/2 Ml Sdv) 100 mg IVP Q8H BENJI Last Admin: 05/17/25 05:46 Dose: 100 mg Albumin Human (Albumin) 25 g in 100 mls @ 60 mls/hr IV Q8H [facility]ENJI Last Admin: 05/17/25 08:04 Dose: 60 mls/hr Furosemide 100 mg/ Sodium (Chloride) 50 mls @ 5 mls/hr IV .Q10H BENJI; Protocol Last Admin: 05/17/25 11:52 Dose: 20 mg/hr, 10 mls/hr Norepinephrine Bitartrate (Levophed) 4 mg in 250 mls @ 0 mls/hr IV .Q0M BENJI; Protocol Last Titration: 05/17/25 03:00 Dose: 2 mcg/min, 7.5 mls/hr Propofol (Diprivan) 1,000 mg in 100 mls @ 0 mls/hr IV .Q0M BENJI; Protocol Last Admin: 05/17/25 11:50 Dose: 40 mcg/kg/min, 21.48 mls/hr Fentanyl (Sublimaze) 1,000 mcg in 100 mls @ 0 mls/hr IV .Q0M BENJI; Protocol Last Admin: 05/17/25 09:58 Dose: 75 mcg/hr, 7.5 mls/hr Vasopressin (Vasostrict) 40 unit in 100 mls @ 1.5 mls/hr IV CONT BENJI Last Admin: 05/16/25 13:39 Dose: 0.01 unit/min, 1.5 mls/hr Fluconazole 100 mg/ N/A 50 mls @ 50 mls/hr IV Q24H BENJI Last Infusion: 05/16/25 17:17 Dose: Infused Sodium Chloride (Sodium Chloride 0.9%) 1,000 mls @ 0 mls/hr IV .Q0M PRN PRN Reason: hypotension or symptomatic Albumin Human (Albumin) 12.5 gm in 50 mls @ 60 mls/hr IV PRN PRN PRN Reason: Hypotension and/or symptomatic Lactulose (Lactulose Oral Liq 20 Gm/30 Ml Udc) 10 gm OG-TUBE Q6H [facility] Last Admin: 05/17/25 11:57 Dose: 10 gm Meropenem (Meropenem 1,000 Mg Sdv) 1,000 mg IVP Q8H [facility]; Protocol Last Admin: 05/17/25 05:46 Dose: 1,000 mg Metolazone (Metolazone 5 Mg Tablet) 10 mg PO DAILY [facility]ENJI Last Admin: 05/17/25 05:47 Dose: 10 mg Multivitamins Therapeutic (Multivitamin Therapeutic Tablet) 1 tab PO DAILY [facility]ENJI Last Admin: 05/17/25 05:47 Dose: 1 tab Ondansetron HCl (Ondansetron 2 Mg/Ml Sdv 2 Ml) 4 mg IVP Q8H PRN PRN Reason: vomiting, or N/V if npo Pantoprazole Sodium (Pantoprazole 40 Mg Sdv) 40 mg IVP Q12H [facility] Last Admin: 05/17/25 05:46 Dose: 40 mg Thiamine HCl (Thiamine 100 Mg/Ml 2ml Sdv) 100 mg IVP DAILY [facility] Last Admin: 05/17/25 05:46 Dose: 100 mg Thiamine Mononitrate (Thiamine 100 Mg Tablet) 100 mg PO DAILY [facility] On Hold: 05/15/25 13:41 Last Admin: 05/15/25 05:10 Dose: Not Given Discontinued Medications Acetaminophen (Acetaminophen 325 Mg Tablet) 650 mg PO Q6H PRN PRN Reason: Mild/Mod Pain Or Temp >/= 101 Budesonide (Budesonide 0.5 Mg/2 Ml Neb) 0.5 mg INHALATION BID [facility] Cefepime HCl (Cefepime 1,000 Mg Sdv) 1,000 mg IVP Q8H [facility]; Protocol Last Admin: 05/15/25 12:06 Dose: 1,000 mg Fludrocortisone Acetate (Fludrocortisone 0.1 Mg Tablet) 0.1 mg PO DAILY [facility] Last Admin: 05/16/25 08:58 Dose: Not Given Folic Acid (Folic Acid 1 Mg Tablet) 1 mg PO DAILY [facility] Last Admin: 05/15/25 05:10 Dose: Not Given Folic Acid (Folic Acid 5 Mg/Ml Mdv 10ml) 1 mg IV DAILY@0600 [facility] Last Admin: 05/16/25 06:30 Dose: 1 mg Furosemide (Furosemide 10 Mg/Ml Sdv 4ml) 40 mg IVP ONCE ONE Stop: 05/09/25 11:11 Last Admin: 05/09/25 11:15 Dose: 40 mg Furosemide (Furosemide 10 Mg/Ml Sdv 4ml) 40 mg IVP BID [facility] Last Admin: 05/12/25 04:46 Dose: 40 mg Furosemide (Furosemide 10 Mg/Ml Sdv 4ml) 60 mg IVP BID [facility] Last Admin: 05/13/25 04:49 Dose: 60 mg Furosemide (Furosemide 10 Mg/Ml Sdv 4ml) 80 mg IVP BID [facility] Last Admin: 05/14/25 04:13 Dose: 80 mg Furosemide (Furosemide 10 Mg/Ml Sdv 10ml) 100 mg IVP ONCE ONE Stop: 05/16/25 15:19 Last Admin: 05/16/25 15:35 Dose: 100 mg Heparin Sodium (Porcine) (Heparin, Porcine 1,000 Unit/Ml Inj 10 Ml) 10,000 unit INTRACATH ONCE ONE Stop: 05/17/25 10:43 Linezolid (Zyvox Premix) 600 mg in 300 mls @ 300 mls/hr IV ONCE ONE; Protocol Stop: 05/09/25 11:12 Last Infusion: 05/09/25 13:46 Dose: Infused Sodium Chloride (Sodium Chloride 0.9%) 50 mls @ 50 mls/hr IV ONCE ONE Stop: 05/09/25 11:12 Last Infusion: 05/09/25 11:42 Dose: Infused Vancomycin HCl 1,000 mg/ (Sodium Chloride) 250 mls @ 250 mls/hr IV BID [facility]; Protocol Last Infusion: 05/14/25 05:28 Dose: Infused Furosemide 100 mg/ Sodium (Chloride) 50 mls @ 0 mls/hr IV .Q0M [facility]; Protocol Sterile Water (Water) Confirm Administered Dose 10 mls @ as directed .ROUTE .[facility] ONE Stop: 05/14/25 12:17 Last Infusion: 05/14/25 14:12 Dose: Infused Vancomycin HCl 1,000 mg/ (Sodium Chloride) 250 mls @ 250 mls/hr IV [facility]8H [facility] [place] Last Infusion: 05/15/25 10:17 Dose: Infused Sterile Water (Water) Confirm Administered Dose 10 mls @ as directed .ROUTE .[facility] ONE Stop: 05/15/25 12:02 Last Infusion: 05/15/25 12:28 Dose: Infused Phytonadione 5 mg/ Sodium (Chloride) 50.5 mls @ 151.5 mls/hr IV ONCE ONE Stop: 05/16/25 05:16 Last Infusion: 05/16/25 14:06 Dose: Infused Etomidate (Amidate) Confirm Administered Dose 10 mls @ as directed .ROUTE .[facility] ONE Stop: 05/16/25 08:37 Last Admin: 05/16/25 09:08 Dose: 1 mls/hr Sodium Chloride (Sodium Chloride 0.9%) 500 mls @ 999 mls/hr IV .Q31M ONE Stop: 05/16/25 09:25 Last Infusion: 05/16/25 14:07 Dose: Infused Sodium Chloride (Sodium Chloride 0.9%) 500 mls @ 999 mls/hr IV .Q31M ONE Stop: 05/16/25 09:53 Last Infusion: 05/16/25 14:07 Dose: Infused Sodium Chloride (Sodium Chloride 0.9%) 1,000 mls @ 80 mls/hr IV .[id number] BENJI Stop: 05/16/25 21:59 Last Infusion: 05/16/25 12:54 Dose: 0 mls/hr Phytonadione 5 mg/ Sodium (Chloride) 50.5 mls @ 151.5 mls/hr IV ONCE ONE Stop: 05/16/25 10:49 Last Infusion: 05/16/25 14:07 Dose: Infused Albumin Human (Albumin) 12.5 gm in 50 mls @ 60 mls/hr IV PRN PRN PRN Reason: Hypotension and/or symptomatic Iohexol (Iohexol 350 Mg/Ml 500 Ml Btl (Per Ml)) 0 ml IV ONCE ONE Stop: 05/09/25 09:40 Last Admin: 05/09/25 09:40 Dose: 100 ml Iohexol (Iohexol 350 Mg/Ml 500 Ml Btl (Per Ml)) 0 ml IV ONCE ONE Stop: 05/13/25 11:04 Last Admin: 05/13/25 11:03 Dose: 58 ml Lorazepam (Lorazepam 2 Mg Tablet) 2 mg PO Q4H PRN; Protocol PRN Reason: WITHDRAWAL Lorazepam (Lorazepam 2 Mg/Ml Inj 1 Ml) 2 mg IM Q4H PRN; Protocol PRN Reason: ALCOHOL WITHDRAWAL Lorazepam (Lorazepam 2 Mg/Ml Inj 1 Ml) 2 mg IVP PRN PRN; Protocol PRN Reason: WITHDRAWAL Last Admin: 05/13/25 08:05 Dose: 2 mg Meropenem (Meropenem 500 Mg Sdv) 500 mg IVP ONCE ONE; Protocol Stop: 05/09/25 10:14 Last Admin: 05/09/25 10:54 Dose: 500 mg Metolazone (Metolazone 5 Mg Tablet) 5 mg PO DAILY [facility] [place] Last Admin: 05/16/25 08:58 Dose: Not Given Morphine Sulfate (Morphine 10 Mg/0.5 Ml Oral Liq Ud) 5 mg PO Q6H BENJI Last Admin: 05/16/25 09:07 Dose: 5 mg Morphine Sulfate (Morphine 10 Mg/0.5 Ml Oral Liq Ud) 5 mg PO NOW ONE Stop: 05/15/25 14:47 Last Admin: 05/15/25 14:59 Dose: 5 mg Morphine Sulfate (Morphine 10 Mg/0.5 Ml Oral Liq Ud) 5 mg PO ONCE ONE Stop: 05/16/25 01:51 Last Admin: 05/16/25 02:01 Dose: 5 mg Pantoprazole Sodium (Pantoprazole 40 Mg Sdv) 40 mg IVP Q12H [facility] [place] Last Admin: 05/13/25 20:32 Dose: 40 mg Potassium Chloride (Potassium Chloride Er 20 Meq Tablet) 40 meq PO ONCE [facility] [place] Stop: 05/12/25 08:46 Last Admin: 05/11/25 09:31 Dose: 40 meq Potassium Chloride (Potassium Chloride Oral Liq 20 Meq/15 Ml Udc) 40 meq PO ONCE ONE Stop: 05/12/25 00:31 Last Admin: 05/12/25 00:44 Dose: 40 meq Potassium Chloride (Potassium Chloride Oral Liq 20 Meq/15 Ml Udc) 40 meq PO BID [facility] [place] Last Admin: 05/16/25 04:05 Dose: 40 meq Propofol (Propofol 10 Mg/Ml Sdv 20 Ml) Confirm Administered Dose 200 mg .ROUTE .STK-MED ONE Stop: 05/16/25 08:38 Last Admin: 05/16/25 09:08 Dose: 200 mg Sodium Chloride (Sodium Chloride 0.9% 100 Ml Bag) 50 ml IV PRN PRN PRN Reason: Blood transfusion prime and flush Stop: 05/10/25 08:05 Last Admin: 05/09/25 13:46 Dose: 50 ml Sodium Chloride (Sodium Chloride 0.9% 100 Ml Bag) 50 ml IV PRN PRN PRN Reason: Blood transfusion prime and flush Stop: 05/17/25 10:40 Last Admin: 05/16/25 17:15 Dose: 50 ml Spironolactone (Spironolactone 25 Mg Tablet) 100 mg PO BID [facility] [place] Last Admin: 05/16/25 04:05 Dose: 100 mg Succinylcholine Chloride (Succinylcholine 20 Mg/Ml Sdv 10ml) Confirm Administered Dose 200 mg .ROUTE .STK-MED ONE Stop: 05/16/25 08:38 Last Admin: 05/16/25 09:08 Dose: 200 mg Thiamine HCl (Thiamine 100 Mg/Ml 2ml Sdv) 100 mg IM ONCE ONE Stop: 05/09/25 21:03 Last Admin: 05/10/25 02:27 Dose: 100 mg Thiamine HCl (Thiamine 100 Mg/Ml 2ml Sdv) Confirm Administered Dose 200 mg .ROUTE .STK-MED ONE Stop: 05/09/25 21:24 Allergies amoxicillin Allergy (Verified 08/09/22 13:24) ALGY-Difficulty Breathing Penicillins Allergy (Verified 08/09/22 13:24) ALGY-Difficulty Breathing Home Medications calcium carbonate 500 - 1,000 mg PO BID PRN Stomach Upset 05/09/25 [History Confirmed 05/09/25] [id number]-idj-pvlyl ac 400 mcg-calcium carb 500 mg-vit K1 20 mcg tablet 1 tab PO DAILY 05/09/25 [History Confirmed 05/09/25] Discharge Plan Discharge Patient Disposition: Home Condition: Stable Prescriptions: No Action calcium carbonate [Tums 500] 500 mg calcium (1,250 mg) Tablet,Chewable 500 - 1,000 mg PO BID PRN (Reason: Stomach Upset) One-A-Day Women's 50 Plus 400 mcg-500 mg calcium-20 mcg Tablet 1 tab PO DAILY Discharge Order = DC NOW: Transfer Out of Facility (Order); Ordered 05/16/25 Ordered By: Abimael Ely Referrals: David Roth MD [Physician, Family Practice] Patient Instructions: Opioid Safety, Patient Portal & Nela Instructions Transfer Attestations Time Spent in Transfer Care: critical care time Critical Care Time (min): 70 Status at Transfer: Cognitive status at transfer: other (Intubated); Behavioral status at transfer: cooperative; Functional status at transfer: bed bound; Overall status at transfer: patient has a new baseline Quality Metrics Clinical Quality Measures [ No reported AMI, CVA or VTE this stay] Coding Level of Care Code Critical Care >/= 30 minutes Critical care time (in minutes): 70 The high probability of a clinically significant, sudden or life threatening deterioration, as referenced in this documentation, required my full and direct attention, intervention and personal management. The critical care time shown is in addition to time spent performing any reported separately billable procedures and includes the following: [x] Data and vital sign review and interpretation [x] Patient assessment, examination and intervention [x] Medication orders and management [x] Patient/Family updates as able [x] Care Coordination and Documentation. Other Coding Information This patient has a high probability of clinically significant, sudden or life threatening deterioration of the patient's (neurological/pulmonary/cardiac/renal/ID/endocrine) systems required my full, direct attention, the highest level of physician preparedness for urgent intervention and personal management. I managed/supervised life or organ supporting interventions that required frequent physician assessment. I devoted my full attention in the ICU to the direct care of this patient for the period of time indicated above. Time I spent with family or surrogate(s) is included only if the patient was incapable of providing necessary information or participating in decision making. This time includes the following services provided: Telemetry review Mechanical Ventilation Hemodynamic interpretation, assessment and management Review and interpretation of CXR Review and interpretation of lab values Review and interpretation of microbiologic data and culture results Review of medications and administration Review and interpretation of Nutrition requirements and management Discussion of management with other consultants and services Clinical update to family members Diagnoses DIANNA (acute kidney injury) N17.9 Goals of care, counseling/discussion Z71.89 Shock R57.9 Thrombocytopenia D69.6 Supratherapeutic INR R79.1 Diabetes type 2, uncontrolled Hyperammonemia E72.20 Transaminitis R74.01 Decompensated hepatic cirrhosis K72.90; K74.60 Ascites R18.8 Hepatorenal syndrome K76.7 Acute anemia D64.9 Acute hypoxemic respiratory failure J96.01 Community acquired pneumonia J18.9 ARDS (adult respiratory distress syndrome) J80 Pleural effusion J90 Anasarca R60.1
--- NOTE | 2025-05-17 13:13 | P.CONIM_ITS ---
Providers/Reason For Consult 2 Consulting Physician/Specialty*: Senthil Najera MD general surgery Reason for Consult*: evaluate for placement of temporary dialysis catheter Requesting Physician: MD Grecia hospitalist Attending Physician: Abimael Ely MD History of Present Illness History of Present Illness Silvia Mcneal is a 64 year old female on ventilator with cirrhosis of liver and end stage liver disease evaluated by transplant team in past. Now with acute renal failure in need of emergency dialysis. SHe has INR over 6 and able to get down to around three with FFP and vitamin K. She has low PLT count but able to get around 80k with platelet transfusion. Her can sign consents for emergency dialysis catheter placed by bedside under local. Review of Systems 2 Narrative: Patient on ventilator and can't talk Medications/Allergies Home Medications ?Medication ?Instructions ?Recorded ?Confirmed ?Last Taken ?Type calcium carbonate 500 - 1,000 mg PO BID PRN St omach 05/09/25 05/09/25 05/08/25 History Upset axkpwhdq-rsh-iqgwp ac 400 1 tab PO DAILY 05/09/25 1207/0305/07/25 History mcg-calcium carb 500 mg-vit K1 20 mcg tablet Allergies Allergy/AdvReac Type Severity Reaction Status Date / Time amoxicillin Allergy ALGY-Difficulty Verified 08/09/22 13:24 Breathing Penicillins Allergy ALGY-Difficulty Verified 08/09/22 13:24 Breathing Current Medications Generic Name Dose Route Start Last Admin Trade Name Freq PRN Reason Stop Dose Admin Albuterol/Ipratropium 3 ml 05/10/25 06:37 05/16/25 07:44 Ipratropium-Albuterol 3 Ml Neb INHALATION 3 ml Q6H PRN Administration SHORTNESS OF BREATH Albuterol/Ipratropium 3 ml 05/16/25 14:00 05/17/25 08:02 Ipratropium-Albuterol 3 Ml Neb INHALATION 3 ml Q6H.RESP BENJI Administration Budesonide 0.5 mg 05/16/25 20:00 05/17/25 08:02 Budesonide 0.5 Mg/2 Ml Neb INHALATION 0.5 mg BID.RESPIRATORY BENJI Administration Folic Acid 1 mg 05/17/25 09:15 05/17/25 09:09 Folic Acid 5 Mg/Ml Mdv 10ml IV 1 mg DAILY@0800 BENJI Administration Hydrocortisone Sodium Succinate 100 mg 05/16/25 05:45 05/17/25 13:11 Hydrocortisone 100 Mg/2 Ml Sdv IVP 100 mg Q8H BENJI Administration Albumin Human 25 g in 100 mls @ 60 mls/hr 05/14/25 08:15 05/17/25 08:04 Albumin IV 60 mls/hr Q8H BENJI Administration Furosemide 100 mg/ Sodium 50 mls @ 5 mls/hr 05/14/25 10:00 05/17/25 11:52 Chloride IV 20 mg/hr .Q10H BENJI 10 mls/hr Protocol Administration Norepinephrine Bitartrate 4 mg in 250 mls @ 0 mls/hr 05/16/25 09:00 05/17/25 03:00 Levophed IV 2 mcg/min .Q0M BENJI 7.5 mls/hr Protocol Titration Per Protocol Propofol 1,000 mg in 100 mls @ 0 mls/hr 05/16/25 09:00 05/17/25 11:50 Diprivan IV 40 mcg/kg/min .Q0M BENJI 21.48 mls/hr Protocol Administration Per Protocol Fentanyl 1,000 mcg in 100 mls @ 0 mls/hr 05/16/25 09:00 05/17/25 09:58 Sublimaze IV 75 mcg/hr .Q0M BENJI 7.5 mls/hr Protocol Administration Per Protocol Vasopressin 40 unit in 100 mls @ 1.5 mls/hr 05/16/25 12:30 05/16/25 13:39 Vasostrict IV 0.01 unit/min CONT BENJI 1.5 mls/hr 0.01 UNIT/MIN Administration Fluconazole 100 mg/ N/A 50 mls @ 50 mls/hr 05/16/25 13:30 05/16/25 17:17 IV Infused Q24H BENJI Infusion Lactulose 10 gm 05/16/25 17:15 05/17/25 11:57 Lactulose Oral Liq 20 Gm/30 Ml Udc OG-TUBE 10 gm Q6H BENJI Administration Meropenem 1,000 mg 05/16/25 05:30 05/17/25 13:10 Meropenem 1,000 Mg Sdv IVP 1,000 mg Q8H BENJI Administration Protocol Metolazone 10 mg 05/16/25 12:45 05/17/25 05:47 Metolazone 5 Mg Tablet PO 10 mg DAILY BENJI Administration Multivitamins Therapeutic 1 tab 05/10/25 05:00 05/17/25 05:47 Multivitamin Therapeutic Tablet PO 1 tab DAILY BENJI Administration Pantoprazole Sodium 40 mg 05/16/25 17:15 05/17/25 05:46 Pantoprazole 40 Mg Sdv IVP 40 mg Q12H BENJI Administration Thiamine HCl 100 mg 05/16/25 05:00 05/17/25 05:46 Thiamine 100 Mg/Ml 2ml Sdv IVP 100 mg DAILY BENJI Administration Thiamine Mononitrate 100 mg 05/10/25 05:00 05/15/25 05:10 Thiamine 100 Mg Tablet PO Not Given On Hold: 05/15/25 13:41 DAILY BENJI PFSH Acute 2 PFSH: Medical History (Updated 05/17/25 @ 09:04 by Prabhu East MD) Pleural effusion Community acquired pneumonia Paronychia Hypertension Thyroid nodule greater than or equal to 1.5 cm in diameter incidentally noted on imaging study cystic on 08/09/22 thyroid US Anxiety Diabetes type 2, uncontrolled DIC (disseminated intravascular coagulation) Ketoacidosis Lactic acidosis Metabolic encephalopathy Thrombocytopenia Sepsis Social History (Updated 05/09/25 @ 12:46 by Joseph Bowen MD) Smoking and tobacco/nicotine status: never used tobacco/nicotine Alcohol intake: current Substance/Drug Use: never Household members: spouse Marital status: Vitals/I&O/Wt Last Vital Signs Temp 98.4 F 05/17/25 10:44 Pulse 93 05/17/25 11:15 Resp 18 05/17/25 11:28 BP 126/50 05/17/25 11:15 Pulse Ox 90 05/17/25 11:28 O2 Del Method Mechanical Ventilation 05/17/25 08:02 O2 Flow Rate 60 05/14/25 10:54 FiO2 60 05/17/25 11:28 05/16/25 05/17/25 05/17/25 22:59 06:59 14:59 Intake Total 1195.250 / 3228.835 433.76 / 3662.595 362.224 / 362.224 Output Total 175 / 175 Balance 1020.250 / 3053.835 433.76 / 3487.595 362.224 / 362.224 Weight last 48 hrs Weight 201 lb 11.567 oz Weight 197 lb 5.019 oz Physical Exam 2 Neck/C-Spine: OTHER: Large variceal like external jugular on right side and without on left side. These are over 2 cm in size. Urinary Catheter Management: Felix: Cath Placed During This Visit: yes Reason for Continuing Indwelling Catheter: Accurate Measurement of Urinary Output in Critically Ill Patients Urinary Catheter Date of Insertion: 05/09/25 Urinary Catheter Time of Insertion: 09:30 Data 05/17/25 03:04 05/17/25 03:04 Micro: Microbiology 05/16/25 12:53 Urine Culture - Preliminary Urine,Clean Catch Yeast species 05/16/25 12:53 Bacterial Antigens - Final Urine Kidney 05/16/25 09:25 Gram Stain - Final Sputum - Endotracheal Tube Aspirate 05/11/25 09:28 Blood Culture - Final Blood NO GROWTH AFTER 5 DAYS 05/11/25 09:28 Blood Culture - Final Blood NO GROWTH AFTER 5 DAYS A&P Assessment and plan 1. DIANNA (acute kidney injury): Plan: Patient needs kidney dialysis and understands risks, benefits and alternatives to procedure and wishes to proceed. Will attempt at bedside under local. She is on propofol because she is on vent for sedation. She is at risk for bleeding because of varices of external jugular and very elevated INR and low PLT's. PDMP PDMP Reviewed: Not Reviewed Coding Level of Care Code 21759 Diagnoses DIANNA (acute kidney injury) N17.9
[2025-05-17] MEDS: fluconazole premix 100 MG in empty flexible container 1 EACH 50 MG IV (13:21)
--- NOTE | 2025-05-17 13:25 | PM.OP ---
Operative Report Date of procedure: May 16, 2025 Pre-op diagnosis: Acute renal failure Post-op diagnosis: same Post-op findings: very enlarged external jugular vein on right side Procedure done: Temporary noncuffed dialysis catheter placement Implants: Temporary noncuffed dialysis catheter Surgeon: Senthil Najera MD Anesthesia: Local (lidocaine) Brief History: Patient with acute kidney failure with cirrhosis and end stage liver failure Procedure: After adequate IV sedation, right neck was prepped and draped. Patient head had to be elevated because her O2 saturation dropped into 70-80's. US was used to visualize the right internal jugular vein. Patient had at least two enlarged external jugular veins about 2 cm in size over SCM muscle. Care was taken to avoid these varices. 1% lidocaine was instilled in skin over the right IJ. Via seldinger technique the vein was cannulated and guide wire was passed in to right IJ. The neede was removed and skin puncture site was incised. Dilaters were passed into vein and then the temporary dialysis that was preflushed with saline was passed over guidewire and secured to skin at 15 cm with 4-0 silk suture. There was good return of blood from both lumens of catheter and then it was flushed with saline. The catheter site was then aseptically dressed. CXR showed adequate placement of catheter and no large PTX by my reading.
[2025-05-17 14:40] LABS: Hepatitis B Surface Antigen Reactive (Nonreactive)
[2025-05-17 14:57] LABS: C.Diff PCR (Lab) NEGATIVE (Negative)
--- NOTE | 2025-05-17 15:48 | PC.NURSE ---
attempted to contact x2 regarding transfer to [id number], voice mail left
[2025-05-17] MEDS: norepinephrine 4 MG/250 ML BAG 7.5 MG IV (16:05)
--- NOTE | 2025-05-17 16:47 | PC.NURSE ---
off unit with airevac in route to slu [id number]
--- NOTE | 2025-05-17 16:49 | P.PN_ITS ---
Subjective 2 Subjective: Silvia Mcneal is a 64 year old female with past medical history of diabetes type 2, alcohol abuse, presents initially to the hospital with increased swelling. Was only very edematous with ascites and hypoxemia. Currently on 8 L mid flow. She had a CT scan of the chest that showed bilateral pleural effusions as well as a large ascites. She had paracentesis done with 3 L of fluid removed. She has also received 1 unit of packed red blood cells for low hemoglobin of 6.4 no obvious signs of bleeding. Diagnosed with esophageal varices probable source. Although she is noted to have black tarry stools. 05/11/25 Less hypoxia. on 6L NC. less shortness of breath 05/12/25 40L/55%, dyspnea. black tarry stools. 05/13/2025 Patient feels more short of breath today. also higher oxygen requirement. Hyponasal cannula 60 L / 70% FiO2. Satting 91% 05/16/2025 Patient decompensated over the weekend. Has been on BiPAP the whole time. Unresponsive this morning urgently getting intubated. Not on any drips other than Lasix minimal urine output. Vitals/I&O/Wt Last Vital Signs Temp 98.4 F 05/17/25 15:38 Pulse 92 05/17/25 15:38 Resp 18 05/17/25 15:57 BP 125/53 05/17/25 15:38 Pulse Ox 97 05/17/25 15:57 O2 Del Method Mechanical Ventilation 05/17/25 14:05 O2 Flow Rate 60 05/14/25 10:54 FiO2 50 05/17/25 15:57 05/17/25 05/17/25 05/17/25 06:59 14:59 22:59 Intake Total 433.76 / 3662.595 362.224 / 362.224 740.292 / 1102.516 Output Total 1989 Balance 433.76 / 3487.595 362.224 / 362.224 -1249.708 / -887.484 Weight last 48 hrs Weight 208 lb 1.862 oz Weight 201 lb 11.567 oz Weight 197 lb 5.019 oz Physical Exam 2 Narrative: .pe Urinary Catheter Management: Felix: Cath Placed During This Visit: yes Reason for Continuing Indwelling Catheter: Accurate Measurement of Urinary Output in Critically Ill Patients Urinary Catheter Date of Insertion: 05/09/25 Urinary Catheter Time of Insertion: 09:30 Data 05/17/25 03:04 05/17/25 03:04 Micro: Microbiology 05/16/25 09:25 Gram Stain - Final Sputum - Endotracheal Tube Aspirate Sputum Culture - Preliminary 05/16/25 12:53 Urine Culture - Preliminary Urine,Clean Catch Yeast species 05/16/25 12:53 Bacterial Antigens - Final Urine Kidney A&P PDMP PDMP Reviewed: Not Reviewed Coding Level of Care Code Acute Code for Chg Fwd
--- NOTE | 2025-05-17 17:18 | PC.NURSE ---
Late Entry: RSI medication orders added per Dr. Samuels's orders to, see previous notes for dosage and times
--- NOTE | 2025-05-17 17:51 | US_ITS ---
WS: [id number] INDICATION: Ascites TECHNIQUE: Ultrasound abdomen limited FINDINGS: Ultrasound abdomen limited. Only a small amount of ascites is visualized. Insufficient fluid for paracentesis. US/US abdomen lmt fluid [id number] IMPRESSION: Small volume ascites. Insufficient fluid for paracentesis.
== END 2025-05-17 16:56 | disposition short-term general hospital (02) | DRG 441 ==
LOC: ER 11:10 → ER IP 12:02 → ICU 18:54
PROVIDERS: Family Medicine; Internal Medicine; Internal Medicine Nephrology; Admitting Provider Internal Medicine; Emergency Provider Emergency Medicine; Visit Provider Student in an Organized Health Care Education/Training Program
DX: K72.10 Chronic hepatic failure without coma (principal); D65 Disseminated intravascular coagulation [defibrination syndrome]; I85.11 Secondary esophageal varices with bleeding; K76.7 Hepatorenal syndrome; J18.9 Pneumonia, unspecified organism; J80 Acute respiratory distress syndrome; N17.9 Acute kidney failure, unspecified; E72.4 Disorders of ornithine metabolism; R57.9 Shock, unspecified; K70.31 Alcoholic cirrhosis of liver with ascites; F10.10 Alcohol abuse, uncomplicated; E66.9 Obesity, unspecified; Z68.33 Body mass index [BMI] 33.0-33.9, adult; B95.5 Unspecified streptococcus as the cause of diseases classified elsewhere; D64.9 Anemia, unspecified; E11.9 Type 2 diabetes mellitus without complications; F41.9 Anxiety disorder, unspecified; I10 Essential (primary) hypertension; Z91.128 Patient's intentional underdosing of medication regimen for other reason; Z87.01 Personal history of pneumonia (recurrent)
CPT/HCPCS: 36415; 36416; 36430; 36573; 36592; 36600; 49083; 51702; 71045; 71275; 74177; 76705; 76770; 80048; 80051; 80053; 80074; 80076; 80202; 80503; 81001; 82140; 82274; 82330; 82436; 82607; 82728; 82746; 82805; 82962; 82977; 83036; 83540; 83550; 83605; 83615; 83735; 83880; 84132; 84133; 84145; 84300; 84443; 84484; 85014; 85018; 85025; 85362; 85378; 85384; 85610; 85730; 86140; 86403; 86850; 86900; 86920; 86927; 87040; 87070; 87075; 87086; 87102; 87106; 87205; 87206; 87340; 87449; 87493; 87637; 89050; 90935; 93005; 93306; 94002; 94003; 94640; 94660; 94664; 94799; 96365; 96372; 96375; 99291; A4570; C1751; J0330; J0692; J1450; J1720; J1938; J2020; J2060; J2185; J2470; J2598; J2704; J3010; J3373; J3411; J3430; J3490; J7030; J7040; J7050; J7626; J9999; P9016; P9017; P9035; P9040; P9046; P9058